=== PATIENT | male | born 1945 | race Caucasian/White ===

== ENCOUNTER → 2018-05-12 10:28 | Outpatient (CLI) | payer MEDICARE, OTHER, SELFPAY ==
[2018-05-12 12:45] LABS: Anion Gap 7 (5-15); BUN 14 mg/dL (7-18); Calcium,Total 8.5 mg/dL (8.5-10.1); Chloride 105 mmol/L (98-107); Cholesterol 113 mg/dL (200); Creatinine, Serum 1.17 mg/dL (0.70-1.30); EST Glomerular Filtration Rate 65 mL/min (>60); Est Glom Filt Rate - Afr Amer 78 mL/min (>60); Glucose 122 mg/dL (74-106); High Density Lipoprotein 41 mg/dL; Potassium 3.6 mmol/L (3.5-5.1); Sodium Level 141 mmol/L (136-145); Triglycerides 89 mg/dL; Very Low Density Lipoprotein 18 mg/dL (5-40)
== END ==
PROVIDERS: Family Provider Family Medicine; PCP Family Medicine; Visit Provider Family Medicine
DX: I10 Essential (primary) hypertension (principal)
CPT/HCPCS: 36415; 80048; 80061

== ENCOUNTER → 2018-11-08 10:24 | Outpatient (CLI) | payer MEDICARE, OTHER, SELFPAY ==
[2018-11-08 09:33] VITALS: BMI 26.7
[2018-11-08 12:57] LABS: Cholesterol 134 mg/dL (200); High Density Lipoprotein 45 mg/dL; Triglycerides 125 mg/dL; Very Low Density Lipoprotein 25 mg/dL (5-40)
== END ==
PROVIDERS: Family Provider Family Medicine; PCP Family Medicine; Referring Provider Family Medicine; Visit Provider Family Medicine
DX: I10 Essential (primary) hypertension (principal)
CPT/HCPCS: 36415; 80061

== ENCOUNTER → 2019-04-26 08:54 | Outpatient (CLI) | payer MEDICARE, OTHER, SELFPAY ==
[2019-04-26 08:34] VITALS: BMI 25.7
[2019-04-26 13:03] LABS: ALB/GLOB Ratio 0.9 RATIO (0.9-2.4); AST(SGOT) 22 U/L (15-37); Alanine Aminotransfer ALT/SGPT 35 U/L (16-61); Albumin, Serum 3.7 g/dL (3.2-5.0); Alkaline Phosphatase 105 U/L (45-117); Anion Gap 9 (5-15); BUN 16 mg/dL (7-18); BUN/Creat Ratio 12.7 RATIO (10-20); Calcium,Total 8.9 mg/dL (8.5-10.1); Chloride 101 mmol/L (98-107); Cholesterol 143 mg/dL (200); Creatinine, Serum 1.26 mg/dL (0.70-1.30); EST Glomerular Filtration Rate 59 mL/min (>60); Est Glom Filt Rate - Afr Amer 72 mL/min (>60); Globulin 4.2 g/dL (2.2-4.2); Glucose 147 mg/dL (74-106); High Density Lipoprotein 42 mg/dL; Potassium 3.4 mmol/L (3.5-5.1); Protein, Total 7.9 g/dL (6.4-8.2); Sodium Level 140 mmol/L (136-145); Triglycerides 127 mg/dL; Very Low Density Lipoprotein 25 mg/dL (5-40)
== END ==
PROVIDERS: Family Provider Family Medicine; PCP Family Medicine; Visit Provider Family Medicine
DX: E78.00 Pure hypercholesterolemia, unspecified (principal); I10 Essential (primary) hypertension
CPT/HCPCS: 36415; 80053; 80061

== ENCOUNTER → 2019-10-31 08:49 | Outpatient (CLI) | payer MEDICARE, OTHER, SELFPAY ==
[2019-10-31 08:41] VITALS: BMI 25.7
[2019-10-31 13:02] LABS: Cholesterol 165 mg/dL (200); High Density Lipoprotein 47 mg/dL; Triglycerides 127 mg/dL; Very Low Density Lipoprotein 25 mg/dL (5-40)
== END ==
PROVIDERS: PCP Family Medicine; Referring Provider Family Medicine; Visit Provider Family Medicine
DX: E78.00 Pure hypercholesterolemia, unspecified (principal)
CPT/HCPCS: 36415; 80061

== ENCOUNTER → 2020-04-30 09:01 | Outpatient (CLI) | payer MEDICARE, OTHER, SELFPAY ==
[2020-04-30 08:38] VITALS: BMI 25.7
[2020-04-30 11:16] LABS: ALB/GLOB Ratio 0.9 RATIO (0.9-2.4); AST(SGOT) 20 U/L (15-37); Alanine Aminotransfer ALT/SGPT 24 U/L (16-61); Albumin, Serum 3.6 g/dL (3.2-5.0); Alkaline Phosphatase 92 U/L (45-117); Anion Gap 4 (5-15); BUN 17 mg/dL (7-18); Calcium,Total 8.6 mg/dL (8.5-10.1); Chloride 104 mmol/L (98-107); Cholesterol 123 mg/dL (200); Creatinine, Serum 1.31 mg/dL (0.70-1.30); EST Glomerular Filtration Rate 57 mL/min (>60); Est Glom Filt Rate - Afr Amer 68 mL/min (>60); Globulin 4.2 g/dL (2.2-4.2); Glucose 165 mg/dL (74-106); High Density Lipoprotein 44 mg/dL; Potassium 3.5 mmol/L (3.5-5.1); Protein, Total 7.8 g/dL (6.4-8.2); Sodium Level 139 mmol/L (136-145); Triglycerides 103 mg/dL; Very Low Density Lipoprotein 21 mg/dL (5-40)
== END ==
PROVIDERS: PCP Family Medicine; Referring Provider Family Medicine; Visit Provider Family Medicine
DX: I10 Essential (primary) hypertension (principal); E78.00 Pure hypercholesterolemia, unspecified
CPT/HCPCS: 36415; 80053; 80061

== ENCOUNTER → 2020-05-01 08:11 | Outpatient (CLI) | payer MEDICARE, OTHER, SELFPAY ==
[2020-04-30 08:38] VITALS: BMI 25.7
[2020-05-01 13:00] LABS: Hemoglobin A1c 7.3 % (3.8-5.6)
== END ==
PROVIDERS: PCP Family Medicine; Referring Provider Family Medicine; Visit Provider Family Medicine
DX: R73.09 Other abnormal glucose (principal)
CPT/HCPCS: 36415; 83036

== ENCOUNTER 2020-05-08 08:51 | Outpatient (RCR) | payer MEDICARE, OTHER, SELFPAY ==
[2020-04-30 08:38] VITALS: BMI 25.7
== END 2020-05-26 23:59 ==
LOC: DC 08:51
PROVIDERS: PCP Family Medicine; Visit Provider Family Medicine
DX: Z71.3 Dietary counseling and surveillance (principal); E11.9 Type 2 diabetes mellitus without complications
CPT/HCPCS: G0108

== ENCOUNTER 2020-07-23 10:58 | Outpatient (RCR) | payer MEDICARE, OTHER, SELFPAY ==
[2020-04-30 08:38] VITALS: BMI 25.7
[2020-07-02 11:53] VITALS: BMI 25.7
== END 2020-07-23 23:59 | disposition home or self-care (01) ==
LOC: DC 10:58
PROVIDERS: PCP Family Medicine; Visit Provider Family Medicine
DX: Z71.3 Dietary counseling and surveillance (principal); E11.9 Type 2 diabetes mellitus without complications
CPT/HCPCS: 97802

== ENCOUNTER → 2020-11-11 08:57 | Outpatient (CLI) | payer MEDICARE, OTHER, SELFPAY ==
[2020-11-11 08:26] VITALS: BMI 23.1
[2020-11-11 12:53] LABS: ALB/GLOB Ratio 0.9 RATIO (0.9-2.4); AST(SGOT) 21 U/L (15-37); Alanine Aminotransfer ALT/SGPT 32 U/L (16-61); Alkaline Phosphatase 94 U/L (45-117); Anion Gap 3 (5-15); BUN 22 mg/dL (7-18); BUN/Creat Ratio 17.5 RATIO (10-20); Calcium,Total 9.3 mg/dL (8.5-10.1); Chloride 103 mmol/L (98-107); Cholesterol 156 mg/dL (200); Creatinine, Serum 1.26 mg/dL (0.70-1.30); EST Glomerular Filtration Rate 59 mL/min (>60); Est Glom Filt Rate - Afr Amer 71 mL/min (>60); Globulin 4.3 g/dL (2.2-4.2); Glucose 137 mg/dL (74-106); High Density Lipoprotein 52 mg/dL; Protein, Total 8.3 g/dL (6.4-8.2); Sodium Level 138 mmol/L (136-145); Triglycerides 130 mg/dL; Very Low Density Lipoprotein 26 mg/dL (5-40)
== END ==
PROVIDERS: PCP Family Medicine; Referring Provider Family Medicine; Visit Provider Family Medicine
DX: E78.00 Pure hypercholesterolemia, unspecified (principal); I10 Essential (primary) hypertension
CPT/HCPCS: 36415; 80053; 80061

== ENCOUNTER → 2021-01-19 10:21 | Outpatient (CLI) | payer MEDICARE, OTHER, SELFPAY ==
[2021-01-19 09:00] VITALS: BMI 23.4
--- NOTE | 2021-01-19 10:24 | RAD_ITS ---
INDICATION: right foot pain EXAMINATION/TECHNIQUE: X-RAY - RIGHT XR Foot Min 3 Views COMPARISON: None. FINDINGS: No acute fracture or malalignment. No blastic or lytic lesions. No degenerative changes are seen. The soft tissues are unremarkable. RAD/Foot min 3 Views IMPRESSION: No acute radiographic abnormalities. Electronically Signed: Lalo Olivera MD at 17:48 EDT Tel , Service support ,
--- NOTE | 2021-01-19 10:29 | RAD_ITS ---
INDICATION: right foot pain EXAMINATION/TECHNIQUE: X-RAY - RIGHT XR Ankle Min 3 Views COMPARISON: None. FINDINGS: No acute fracture or malalignment. No blastic or lytic lesions. No degenerative changes are seen. Soft tissue swelling of the ankle. RAD/Ankle min 3 Views IMPRESSION: Soft tissue swelling of the ankle without fracture or malalignment. Electronically Signed: Lalo Olivera MD at 17:47 EDT Tel , Service support ,
== END ==
PROVIDERS: PCP Family Medicine; Referring Provider Physician Assistant; Visit Provider Physician Assistant
DX: M79.671 Pain in right foot (principal)
CPT/HCPCS: 73610; 73630

== ENCOUNTER 2021-09-28 10:56 | Day surgery (SDC) | payer MEDICARE, OTHER, SELFPAY ==
--- NOTE | 2021-09-14 11:08 | RAD_ITS ---
STUDY: X-RAY CHEST REASON FOR EXAM: Male, 75 years old. For Pacemaker generator change with Dr. Lux on 1 TECHNIQUE: PA and lateral views of the chest. COMPARISON: Comparison is made with prior study dated 06/26/2014. FINDINGS: There is hyperinflation of the lungs consistent with chronic obstructive lung disease (COPD). There is no demonstrated pleural abnormality. Normal size heart. A left-sided dual chamber pacemakers. Normal mediastinum and ashley. Normal visualized pulmonary arteries. There is atherosclerotic calcification of the aortic arch with tortuosity. There are degenerative changes of the visualized thoracic spine. Normal visualized ribs, clavicles, and shoulders. There is no demonstrated abnormality of the visualized soft tissue structures of the upper abdomen. RAD/Chest PA and Lateral IMPRESSION: Hyperinflation. Electronically Signed: Shamar Butt MD at 13:24 EST , Service support ,
[2021-09-14 11:21] LABS: Bacteria 0 SEEN /hpf (None Seen); Mucous, Urine 0 SEEN /hpf (<or=2+)
[2021-09-14 11:39] LABS: Hematocrit 39.5 % (40-54); Hemoglobin 13.8 g/dL (13.0-16.5); Mean Corp Hgb Conc 34.9 g/dL (32-36); Mean Corpuscular Hgb 33.7 pg (27.0-32.0); Mean Corpuscular Volume 96.6 fL (80-94); Mean Platelet Vol. 10.2 fl (6.2-12.0); Platelet Count 318 K/mm3 (150-450); RBC Distribution Width CV 13.4 % (11.6-14.6); RBC Distribution Width SD 47.8 fl (35.1-43.9); Red Blood Count 4.09 M/mm3 (4.6-6.2); White Blood Count 12.4 K/mm3 (4.4-11.0)
[2021-09-14 11:55] LABS: Color, Urine Yellow (Yellow); Glucose, Dipstick Normal (Normal); Ketone-Dipstick Negative (Negative); Leukocyte Esterase-Dipstick Negative /ul (Negative); Nitrite-Dipstick Negative (Negative); Occult Blood-Urine 50 /ul (Negative); Protein-Dipstick Negative (Negative); Urine Bilirubin Dipstick Negative (Negative); Urine Clarity Clear (Clear); Urine Urobilinogen Normal (Normal)
[2021-09-14 12:01] LABS: Red Blood Cells-Urine 0-5 SEEN /hpf (0-5); Squamous Epithelial Cells - UA 0-5 SEEN /hpf (0-5); White Blood Cells 0-5 SEEN /hpf (0-5)
[2021-09-14 12:12] LABS: International Normalized Ratio 1.1; Prothrombin Time (Protime)PT. 13.6 SECONDS (11.7-14.9)
[2021-09-14 12:21] LABS: Anion Gap 7 (5-15); BUN 17 mg/dL (7-18); BUN/Creat Ratio 13.4 RATIO (10-20); Calcium,Total 9.2 mg/dL (8.5-10.1); Chloride 101 mmol/L (98-107); Creatinine, Serum 1.27 mg/dL (0.70-1.30); EST Glomerular Filtration Rate 58 mL/min (>60); Est Glom Filt Rate - Afr Amer 71 mL/min (>60); Glucose 177 mg/dL (74-106); Potassium 3.3 mmol/L (3.5-5.1); Sodium Level 138 mmol/L (136-145)
[2021-09-24 07:42] VITALS: BMI 23.0
[2021-09-24 09:11] LABS: Anion Gap 6 (5-15); BUN 14 mg/dL (7-18); BUN/Creat Ratio 11.4 RATIO (10-20); Chloride 104 mmol/L (98-107); Creatinine, Serum 1.23 mg/dL (0.70-1.30); EST Glomerular Filtration Rate 61 mL/min (>60); Est Glom Filt Rate - Afr Amer 73 mL/min (>60); Estimated Creatinine Clearance 54.86 ml/min; Glucose 229 mg/dL (74-106); Potassium 3.5 mmol/L (3.5-5.1); Sodium Level 140 mmol/L (136-145)
[2021-09-28 11:33] LABS: Anion Gap 7 (5-15); BUN 19 mg/dL (7-18); BUN/Creat Ratio 13.5 RATIO (10-20); Calcium,Total 9.2 mg/dL (8.5-10.1); Chloride 102 mmol/L (98-107); Creatinine, Serum 1.41 mg/dL (0.70-1.30); EST Glomerular Filtration Rate 52 mL/min (>60); Est Glom Filt Rate - Afr Amer 63 mL/min (>60); Estimated Creatinine Clearance 47.85 ml/min; Glucose 175 mg/dL (74-106); Potassium 3.4 mmol/L (3.5-5.1); Sodium Level 138 mmol/L (136-145)
--- NOTE | 2021-09-28 13:22 | CL.IE_ITS ---
Patient: FLAQUITO MCMULLEN Study Date: 09/28/2021 Performing: Yohannes Lux MD : 1945 Age: 75 Gender: male PROCEDURES PERFORMED [id number])BATTERY REMOVAL+REPLACEMENT PACER-DUAL LEAD INDICATIONS Mobitz (type II) AV block PROCEDURE DETAILS The patient was brought to the Catheterization Lab in the postabsorptive nonsedated state. Infor med consent was obtained prior to the procedure. Local anesthetic was given subcutaneously to the le ft upper chest area with Lidocaine 2%. Incision was made to the left upper chest. PPM atrial lead steph ting performed. PPM ventricular lead testing performed. PPM ventricular lead testing performed. PPM g enerator was attached to the lead(s) and inserted into the pocket. Device pocket was irrigated with a ntibiotic. Subcutaneous closure was completed with 3-0 Vicryl. Skin closure was completed with 4-0 Vi cryl. Instrument, sponge, and needle counts were noted to be normal. The patient tolerated the proced ure well. 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: [email or web address], Model # [employer] MRI DR Model L111 , Serial # [id number] DEVICE PARAMETERS ATRIAL LEAD PARAMETERS: P wave- 3.5 (mV) Current- 1.5 (mA) threshold- 551 (V) VENTRICULAR LEAD PARAMETERS: Current- 3.1 (mA) threshold- 1.7 (V) impedence- 555 (OHMS) DEVICE PARAMETERS: Mode- DDD Lower rate- 60 Upper rate- 140 CONCLUSIONS / RECOMMENDATIONS Device Conclusions: Successful implantation of a dual chamber pacemaker battery change and replacemen t Device Recommendations: Follow up with Primary Care Physician PROCEDURE MEDICATIONS Fentanyl 50 mcg IV Versed 1 mg IV Versed 1 mg IV Oxygen: 2 L/min via nasal cannula Antibiotic given in appropriate timeframe. Ancef 2 Gm IV @ 09/28/2021 12:16:28 Signed By Yohannes Lux MD On 09/28/2021 13:21:45 Yohannes Lux MD
== END 2021-09-28 23:59 | disposition home or self-care (01) ==
LOC: CLSP 10:57
PROVIDERS: Internal Medicine Cardiovascular Disease; Nurse Practitioner Gerontology; PCP Family Medicine; Referring Provider Internal Medicine Cardiovascular Disease; Visit Provider Internal Medicine Cardiovascular Disease
DX: Z45.010 Encounter for checking and testing of cardiac pacemaker pulse generator [battery] (principal); Z95.0 Presence of cardiac pacemaker; I10 Essential (primary) hypertension; E78.00 Pure hypercholesterolemia, unspecified; Q21.1 Atrial septal defect; Z87.891 Personal history of nicotine dependence; Z79.899 Other long term (current) drug therapy
CPT/HCPCS: 33228; 36415; 71046; 80048; 81001; 85027; 85610; 99152; 99153; J7040; J7050

== ENCOUNTER 2021-11-04 08:53 | Outpatient (CLI) | payer MEDICARE, OTHER, SELFPAY ==
[2021-11-04 13:00] LABS: Cholesterol 135 mg/dL (200); High Density Lipoprotein 46 mg/dL; Triglycerides 105 mg/dL; Very Low Density Lipoprotein 21 mg/dL (5-40)
== END 2021-11-04 23:59 | disposition home or self-care (01) ==
LOC: BIMLAB 08:54
PROVIDERS: PCP Family Medicine; Referring Provider Family Medicine; Visit Provider Family Medicine
DX: Z79.899 Other long term (current) drug therapy (principal)
CPT/HCPCS: 36415; 80061

== ENCOUNTER → 2022-01-27 | Outpatient (CLI) | payer MEDICARE, OTHER, SELFPAY ==
[2022-01-27 12:57] LABS: Anion Gap 10 (5-15); BUN 18 mg/dL (7-18); BUN/Creat Ratio 14.2 RATIO (10-20); Calcium,Total 8.7 mg/dL (8.5-10.1); Chloride 104 mmol/L (98-107); Creatinine, Serum 1.27 mg/dL (0.70-1.30); EST Glomerular Filtration Rate 58 mL/min (>60); Est Glom Filt Rate - Afr Amer 71 mL/min (>60); Glucose 127 mg/dL (74-106); Sodium Level 136 mmol/L (136-145)
== END | disposition home or self-care (01) ==
LOC: BIMLAB 10:40
PROVIDERS: PCP Family Medicine; Referring Provider Family Medicine; Visit Provider Family Medicine
DX: E87.6 Hypokalemia (principal)
CPT/HCPCS: 36415; 80048

== ENCOUNTER → 2023-03-15 | Outpatient (CLI) | payer MEDICARE, OTHER, SELFPAY ==
[2023-03-15 14:10] LABS: ALB/GLOB Ratio 0.8 RATIO (0.9-2.4); AST(SGOT) 23 U/L (15-37); Alanine Aminotransfer ALT/SGPT 22 U/L (16-61); Albumin, Serum 3.6 g/dL (3.2-5.0); Alkaline Phosphatase 101 U/L (45-117); Anion Gap 6 (5-15); BUN 20 mg/dL (7-18); BUN/Creat Ratio 17.1 RATIO (10-20); Calcium,Total 9.2 mg/dL (8.5-10.1); Chloride 104 mmol/L (98-107); Cholesterol 125 mg/dL (200); Creatinine, Serum 1.17 mg/dL (0.70-1.30); EST Glomerular Filtration Rate 64 mL/min (>60); Est Glom Filt Rate - Afr Amer 77 mL/min (>60); Globulin 4.8 g/dL (2.2-4.2); Glucose 135 mg/dL (74-106); High Density Lipoprotein 49 mg/dL; Potassium 4.1 mmol/L (3.5-5.1); Protein, Total 8.4 g/dL (6.4-8.2); Sodium Level 140 mmol/L (136-145); Triglycerides 84 mg/dL; Very Low Density Lipoprotein 17 mg/dL (5-40)
[2023-03-17 11:08] LABS: PROEL- A/G Ratio 0.9 (0.7-1.7); PROEL- Albumin 3.6 g/dL (2.9-4.4); PROEL- Alpha-1 Globulin 0.3 g/dL (0.0-0.4); PROEL- Alpha-2 Globulin 0.9 g/dL (0.4-1.0); PROEL- Beta Globulin 1.2 g/dL (0.7-1.3); PROEL- Gamma Globulin 1.7 g/dL (0.4-1.8); PROEL- Globulin, Total 4.1 g/dL (2.2-3.9); PROEL- TOTAL PROTEIN 7.7 g/dL (6.0-8.5)
== END | disposition home or self-care (01) ==
LOC: BIMLAB 09:38
PROVIDERS: PCP Family Medicine; Referring Provider Family Medicine; Visit Provider Family Medicine
DX: I10 Essential (primary) hypertension (principal); R77.1 Abnormality of globulin
CPT/HCPCS: 36415; 80053; 80061; 84165

== ENCOUNTER → 2023-06-06 | Outpatient (CLI) | payer MEDICARE, OTHER, SELFPAY ==
--- NOTE | 2023-06-06 10:46 | ECHOD_ITS ---
Reason For Study: AV BLOCK Procedure This was a 2D Doppler, Color Flow transthoracic echocardiogram. Exam performed in department. Left Ventricle Normal LV size. Left ventricular systolic function is normal. The estimated ejection fraction is 55 %. Stage 1 diastolic dysfunction. No regional wall motion abnormalities noted. Right Ventricle Normal RV size. ICD or pacer leads identified within the right ventricle. The right ventricle is normal in size, function, and thickness. Atria Normal left atrium. The right atrium is mildly enlarged. Mitral Valve Normal mitral valve. Trivial eccentric mitral valve insufficiency. Tricuspid Valve Normal tricuspid valve. Mild to moderate (1-2+) tricuspid valve insufficiency. Pulmonary artery systolic pressure is 34 mmHg. Aortic Valve Trisinus/trileaflet aortic valve. Pulmonic Valve Normal pulmonic valve. Great Vessels Normal aortic root. The pulmonary artery is normal size. Normal inferior vena cava. Pericardium/Pleural No pericardial effusion. MMode/2D Measurements & Calculations LVIDd: 4.6 cm IVSd: 0.86 cm Ao root diam: 3.2 cm LVIDs: 4.0 cm LVPWd: 0.67 cm RVDd: 3.9 cm FS: 13.5 % LAV(MOD-bp): 55.0 ml LVAd ap4: 26.1 cm2 SV(MOD-sp4): 36.1 ml LAV(MOD-bp) Indexed: 28.0 ml/m2 LVLd ap4: 8.2 cm LAV(MOD-sp2): 71.2 ml EDV(MOD-sp4): 71.5 ml LAV(MOD-sp4): 39.8 ml EDV(sp4-el): 70.7 ml LVAs ap4: 17.6 cm2 LVLs ap4: 7.7 cm ESV(MOD-sp4): 35.4 ml ESV(sp4-el): 34.2 ml EF(MOD-sp4): 50.5 % EF(sp4-el): 51.6 % SV(sp4-el): 36.4 ml LA A4 area: 16.1 cm2 LA dimension(2D): 3.9 cm RA A4 area: 22.3 cm2 TAPSE: 1.5 cm Time Measurements MV dec time: 0.31 sec Doppler Measurements & Calculations MV E max richard: 48.2 cm/sec Lat Peak E' Richard: 6.3 cm/sec Med Peak E' Richard: 4.9 cm/sec MV A max richard: 64.5 cm/sec E/E' lat: 7.6 E/E' med: 9.9 MV E/A: 0.75 MV V2 max: 79.1 cm/sec Ao V2 max: 99.4 cm/sec MV max P.5 mmHg MV dec slope: 160.3 cm/sec2 Ao max P.0 mmHg MV V2 mean: 45.3 cm/sec Ao V2 mean: 71.8 cm/sec MV mean P.93 mmHg Ao mean P.3 mmHg MV V2 VTI: 26.3 cm Ao V2 VTI: 26.1 cm AV (velocity ratio): 1.0 LV V1 max: 102.8 cm/sec PA V2 max: 135.7 cm/sec TR max richard: 281.4 cm/sec LV V1 max P.2 mmHg PA V2 mean: 74.2 cm/sec TR max P.7 mmHg LV V1 mean P.4 mmHg LV V1 mean: 71.5 cm/sec LV V1 VTI: 27.2 cm ECHO/Echo Complete Interpretation Summary Normal LV size. Left ventricular systolic function is normal. The estimated ejection fraction is 55 %. Stage 1 diastolic dysfunction. Pulmonary artery systolic pressure is 34 mmHg. The right atrium is mildly enlarged. Ordering Physician: Camilla Kidd Referring Physician: Camilla Kidd Performed By: Brittany Mayes RCS
== END | disposition home or self-care (01) ==
PROVIDERS: PCP Family Medicine; Referring Provider Physician Assistant Medical; Visit Provider Physician Assistant Medical
DX: I44.1 Atrioventricular block, second degree (principal)
CPT/HCPCS: 93306

== ENCOUNTER 2023-08-24 10:56 | Day surgery (SDC) | payer MEDICARE, OTHER, SELFPAY ==
[2023-08-24] VITALS (8 sets, daily range): BP systolic 121–142; BP diastolic 59–94; PULSE 77–86; RESP 14–18; TEMP 36.1–36.6; O2SAT 92–100; BMI 21.4
--- NOTE | 2023-08-24 11:19 | EDS_ITS ---
HPI <ISRA Jones - Last Filed: 08/24/23 13:14> History of Present Illness Chief Complaint: Foreign Body Narrative Narrative: Patient is a 77-year-old male with history of pacemaker, type 2 diabetes, CAD who presents to the emergency department with complaints of foreign body in his throat. Patient was having steak last night, approximately 530 to 6 PM. He states that he felt that something got stuck. He then coughed and had a small chunk come out however he states he is unable to swallow. Patient could not sleep last night because he to keep spitting out his saliva. He denies any chest pain, denies any shortness of breath. Patient states he does feel some pressure in his epigastric area. PFSH <ISRA Jones - Last Filed: 08/24/23 13:14> [facility] Medical History Atrial septal defect Atrioventricular block, first degree Cardiac murmur COVID-19 Encounter for long-term current use of high risk medication Essential hypertension Heart block AV second degree hyperlipidemia Hypertension Nonspecific abnormal unspecified cardiovascular function study Palpitations 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 Pure hypercholesterolemia Home Medications clonidine HCl 0.1 mg tablet See Rx Instructions .Route .COMPLEX #180 tabs 02/23/23 [Rx Last Taken Unknown] atorvastatin 10 mg tablet 10 mg PO QHS #90 tabs 03/10/23 [Rx Last Taken Unknown] metformin 500 mg tablet 500 mg PO ONCE #90 tabs 03/15/23 [Rx Last Taken Unknown] metoprolol succinate 25 mg tablet,extended release 24 hr 25 mg PO DAILY #90 tabs 03/15/23 [Rx Last Taken Unknown] amlodipine 5 mg tablet 5 mg PO DAILY #90 tabs 05/16/23 [Rx Last Taken Unknown] chlorthalidone 25 mg tablet 25 mg PO DAILY #90 tabs 05/16/23 [Rx Last Taken Unknown] potassium chloride 20 mEq tablet,extended release(part/cryst) 20 meq PO BID #180 tabs 05/16/23 [Rx Last Taken Unknown] Allergy/AdvReac Type Severity Reaction Status Date / Time hydralazine [Hydralazine] Allergy Unknown Verified 08/24/23 12:23 hydrochlorothiazide Allergy Unknown Verified 08/24/23 12:23 [From Diovan HCT] valsartan [From Diovan HCT] Allergy Unknown Verified 08/24/23 12:23 Family History Mother CVA (cerebral vascular accident) Father Cancer Brother CAD (coronary artery disease) Sister Breast cancer Surgical History History of cholecystectomy Social History Smoking Status: Former smoker how long ago did patient quit smokin years ago alcohol intake: never substance use type: does not use caffeine: Yes Type: coffee Number of servings: 2 what type of physical activity do you participate in: walking and bicycling frequency: daily ROS <ISRA Jones - Last Filed: 08/24/23 13:14> ROS ED ROS Narrative Constitutional: Negative for fever, chills, weight loss, weakness Eyes: Negative for vision loss, vision change, double vision ENT: Negative for any sore throat, ear pain, congestion. Positive for throat pain, difficulty swallowing Cardiovascular: Negative for any chest pain, tightness, palpitations Respiratory: Negative for any cough, sputum production, hemoptysis, dyspnea, dyspnea on exertion, orthopnea Gastrointestinal: Negative for any abdominal pain, nausea, vomiting, diarrhea, constipation, blood in stool, blood in vomit : Negative for any urinary frequency, dysuria, retention, blood in urine Muscle skeletal: Negative for any myalgias, arthralgias, neck pain, back pain Neurological: Negative for any headache, syncope, numbness or tingling, dizziness Skin: Negative for any rashes, lumps, itching, abrasions, lacerations Psychiatric: Negative for any depression, anxiety, stress, suicidal ideation, homicidal ideation Hematologic: Negative for any easy bruising, excessive bruising, easy bleeding Allergies: Negative for any eczema, hives, rash EXAM <ISRA Jones - Last Filed: 08/24/23 13:14> Physical Exam Narrative Exam Narrative: Vital signs reviewed. Patient is no obvious respiratory distress. Patient did spit out his saliva several times during my examination. HEET: Head normocephalic atraumatic, TMs clear bilaterally. Posterior pharynx is clear, moist mucous membranes. Nares clear bilaterally. No foreign body seen. Neck: Supple with no lymphadenopathy or tenderness. No signs of meningismus. Cardiac: Regular rate and rhythm no murmurs gallops or rubs, equal peripheral pulses bilaterally. Respiratory: Lungs clear to auscultation bilaterally. No chest tenderness. Abdomen: Soft, nontender, nondistended. No abdominal bruit or pulsatile masses. No hepatosplenomegaly Extremities: No peripheral edema, no signs of gross trauma or deformity. Active full range of motion of all extremities. Neuro: Cranial nerves II through XII intact, no focal neurological deficits. Skin: Clean dry and intact with no rash, purpura, petechiae, vesicles or pustules. Backs/flank: No CVA tenderness, no midline spinal tenderness, no deformity. Psych: Normal mood and affect. No SI, HI or acute psychosis. Const Vital Signs: 08/24/23 10:57 08/24/23 10:56 08/24/23 12:26 Temperature 97.5 F L Temperature Source Temporal Pulse Rate 82 Respiratory Rate 18 Respiratory Effort Normal Non-Labored Respiratory Pattern Normal Normal Blood Pressure 136/82 H Blood Pressure Mean 100 Blood Pressure Source Blood Pressure Position Blood Pressure Location Pulse Ox 92 Oxygen Delivery Method Room Air 08/24/23 12:26 Temperature 97.5 F L Temperature Source Temporal Pulse Rate 86 Respiratory Rate 16 Respiratory Effort Respiratory Pattern Blood Pressure 141/59 H Blood Pressure Mean 86 Blood Pressure Source Monitor Blood Pressure Position Semi-Fowlers Blood Pressure Location Left Arm Pulse Ox 100 Oxygen Delivery Method Room Air Positive well nourished and well developed General Appearance ED: well developed <Dr. Enzo Kirk MD - Last Filed: 08/24/23 11:36> Physical Exam Const Vital Signs: 08/24/23 10:57 08/24/23 10:56 08/24/23 12:26 Temperature 97.5 F L Temperature Source Temporal Pulse Rate 82 Respiratory Rate 18 Respiratory Effort Normal Non-Labored Respiratory Pattern Normal Normal Blood Pressure 136/82 H Blood Pressure Mean 100 Blood Pressure Source Blood Pressure Position Blood Pressure Location Pulse Ox 92 Oxygen Delivery Method Room Air 08/24/23 12:26 Temperature 97.5 F L Temperature Source Temporal Pulse Rate 86 Respiratory Rate 16 Respiratory Effort Respiratory Pattern Blood Pressure 141/59 H Blood Pressure Mean 86 Blood Pressure Source Monitor Blood Pressure Position Semi-Fowlers Blood Pressure Location Left Arm Pulse Ox 100 Oxygen Delivery Method Room Air [facility] <ISRA Jones - Last Filed: 08/24/23 13:14> [facility] Lab Data Labs: Laboratory Results - last 24 hr 08/24/23 12:39 POC Glucose 168 H Treatment and Re-Evaluation :: Patient appears generally well, patient appears nontoxic, vital signs are stable. Presents to the emergency department for complaints of throat pain, feeling of foreign body, cannot swallow. Differential diagnose includes foreign body, pharyngitis, GERD. Patient will be given IV glucagon, he will then be given Sprite to see if this helps him swallow. Patient did try IV glucagon, he did try to drink Sprite however was unable to get it down. Dr. Matias was consulted, he will begin to perform the procedure remove the foreign body. Patient remained stable. Patient will go to surgery for EGD. Dr. Matias notified. <Dr. Enzo Kirk MD - Last Filed: 08/24/23 11:36> [facility] Narrative Medical decision making narrative: I have personally performed a face to face assessment of the patient and have reviewed the KIESHA Note. I performed a substantive portion of the visit including all aspects of the following. My alfonso findings include: History is 77-year-old male with esophageal foreign body after eating steak last night for dinner around 5:30 PM. He is unable to swallow food. Mild discomfort. No prior history. Exam is [well-appearing 77-year-old male. Sitting upright in bed. Vital signs are stable afebrile. Pulse ox 92% on room air no hypoxia. HEENT exam unremarkable. Posterior pharynx normal. He is able to handle secretions. I gave him a small glass of water he was able to swallow it but it took a while to for him to get it down. Lungs are clear. Heart regular rhythm. Abdomen soft nontender. Moving all 4 extremities.] Medical Decision Making [7-year-old male suspected esophageal foreign body, steak bolus. Treated with glucagon. GI on page for endoscopy.] Other additions or changes: [None] History & Record Review Discussion w/independent historian: Patient Lab Data Labs: Laboratory Results - last 24 hr 08/24/23 12:39 POC Glucose 168 H Discharge Plan Dx/Rx/DC Orders Clinical Impression: Distal esophageal obstruction due to foreign body Disposition Disposition: Acute Care Hospital [facility] Discharge Date/Time: 08/24/23 12:23
[2023-08-24] MEDS: Glucagon 1 MG/ML Syringe IV (11:31)
--- NOTE | 2023-08-24 12:49 | HP.PCM_ITS ---
HPI - General General Date of Admission: 08/24/23 Date of Service: 08/24/23 Chief Complaint: Food impaction HPI Narrative FLAQUITO MCMULLEN, is a 77 M who presents with an inability to swallow. He has a past medical history of pacemaker secondary to AV block, type 2 diabetes, CAD, CKD who presents to the emergency department with complaints of foreign body in his throat. Patient was having steak last night, approximately 530 to 6 PM. He sta steph that he felt that something got stuck. He then coughed and had a small chunk come out however he states he is unable to swallow. Patient could not sleep last night because he to keep spitting out his saliva. He denies any chest pain, denies any shortness of breath. Patient states he does feel some pressure in his epigastric area. [facility] Medical History Atrial septal defect Atrioventricular block, first degree Cardiac murmur COVID-19 Encounter for long-term current use of high risk medication Essential hypertension Heart block AV second degree hyperlipidemia Hypertension Nonspecific abnormal unspecified cardiovascular function study Palpitations 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 Pure hypercholesterolemia Home Medications clonidine HCl 0.1 mg tablet See Rx Instructions .Route .COMPLEX #180 tabs 02/23/23 [Rx Last Taken Unknown] atorvastatin 10 mg tablet 10 mg PO QHS #90 tabs 03/10/23 [Rx Last Taken Unknown] metformin 500 mg tablet 500 mg PO ONCE #90 tabs 03/15/23 [Rx Last Taken Unknown] metoprolol succinate 25 mg tablet,extended release 24 hr 25 mg PO DAILY #90 tabs 03/15/23 [Rx Last Taken Unknown] amlodipine 5 mg tablet 5 mg PO DAILY #90 tabs 05/16/23 [Rx Last Taken Unknown] chlorthalidone 25 mg tablet 25 mg PO DAILY #90 tabs 05/16/23 [Rx Last Taken Unknown] potassium chloride 20 mEq tablet,extended release(part/cryst) 20 meq PO BID #180 tabs 05/16/23 [Rx Last Taken Unknown] Allergy/AdvReac Type Severity Reaction Status Date / Time hydralazine [Hydralazine] Allergy Unknown Verified 08/24/23 12:23 hydrochlorothiazide Allergy Unknown Verified 08/24/23 12:23 [From Diovan HCT] valsartan [From Diovan HCT] Allergy Unknown Verified 08/24/23 12:23 Family History Mother CVA (cerebral vascular accident) Father Cancer Brother CAD (coronary artery disease) Sister Breast cancer Surgical History History of cholecystectomy Social History Smoking Status: Former smoker how long ago did patient quit smokin years ago alcohol intake: never substance use type: does not use caffeine: Yes Type: coffee Number of servings: 2 what type of physical activity do you participate in: walking and bicycling frequency: daily ROS Review of Systems ROS Unobtainable: other Constitutional Constitutional: Denies fatigue, fever(s), poor appetite, weight gain or weight loss ENT HEENT: Denies mouth lesions Cardiovascular Cardiovascular: Denies abdominal bloating, abdominal edema or abdominal pain Respiratory/Chest Respiratory/Chest: Denies change in mental status, change in phlegm color, chest congestion or chest tightness Gastrointestinal Gastrointestinal: Denies belching, bloating, change in bowel habits, change in stool character, chewing difficulty, coffee ground emesis, constipation, cramping, diarrhea, dyspepsia, dysphagia, early satiety, excessive flatus, fecal incontinence, heartburn, hematemesis, hematochezia, hemorrhoids, loose stools, melena, nausea, odynophagia, rectal bleeding, tenesmus, vomiting or weight changes Genitourinary Genitourinary: Denies abdominal discomfort, burning urination or itching Musculoskeletal Musculoskeletal: Reports as per HPI; Denies muscle weakness or myalgias Integumentary Integumentary: Denies jaundice Neurologic Neurologic: Denies lack of coordination or weakness Psychiatric Psychiatric: Denies confusion, depression, memory loss, mood swings, paranoia or suicidal ideation Endocrine Endocrinology: Denies systems reviewed and no addt'l complaints, except as documented Hematologic/Lymphatic Hematologic/Lymphatic: Denies anemia, easy bleeding, easy bruising or lymphadenopathy Allergic/Immunologic Allergic/Immunologic: Denies systems reviewed and no addt'l complaints, except as documented Vital Signs Vital Signs Vital Signs: 08/24/23 10:57 08/24/23 10:56 08/24/23 12:26 Temperature 97.5 F L Temperature Source Temporal Pulse Rate 82 Respiratory Rate 18 Respiratory Effort Normal Non-Labored Respiratory Pattern Normal Normal Blood Pressure 136/82 H Blood Pressure Mean 100 Blood Pressure Source Blood Pressure Position Blood Pressure Location Pulse Ox 92 Oxygen Delivery Method Room Air 08/24/23 12:26 Temperature 97.5 F L Temperature Source Temporal Pulse Rate 86 Respiratory Rate 16 Respiratory Effort Respiratory Pattern Blood Pressure 141/59 H Blood Pressure Mean 86 Blood Pressure Source Monitor Blood Pressure Position Semi-Fowlers Blood Pressure Location Left Arm Pulse Ox 100 Oxygen Delivery Method Room Air Weight Weight: 157 lb 13.616 oz Body Mass Index (BMI) 21.4 Physical Exam Const alert General Appearance: cooperative Orientation / Consciousness: oriented to person HEENT hearing grossly normal bilaterally Head and Scalp: normal to inspection Face and Sinus: face symmetric Nose: external nose normal Mouth: oral and palatal mucosa normal Eyes conjunctivae normal General Eye: normal appearance of both eyes Neck full ROM General: normal visual inspection Lymph Lymphatic: no lymphadenopathy noted Chest inspection of chest normal and palpation of chest normal Chest: symmetrical chest wall rise Resp normal respiratory effort Effort and Inspection: able to speak in complete sentences Cardio regular rate GI non-distended Percussion: normal to percussion Rectal Exam: deferred Neuro Speech: speech normal Gait (Neuro): normal gait
[2023-08-24 13:04] LABS: Bedside Glucose 168 mg/dL (74-106)
--- NOTE | 2023-08-24 13:20 | EGD_PTH ---
PATIENT: FLAQUITO MCMULLEN [place] [facility] [place] U#:[id number] AGE/SX: 77/M ROOM: RE08/24/[address]: Dr. Gilbert Matias DO : 1945 BED: DIS: 08/24/2023 SPEC #: [id number] RECD: 08/24/23 18:34 STATUS: BEENA REMiroslava #: [id number] BEA: 08/24/23 13:[address]: Gilbert Matias DEPT: SURGICAL PATHOLOGY RECD BY: Mayte Shields ENTERED: 08/25/23 10:41 SP TYPE: EGD BIOPSY OT DR: Dr. Kumar Stephenson DO Tissues: Esophagus, NOS Procedures: Special Stain Group II Special Stain Group I Surgery Specimen Level IV GMS Stain (control) Alcian Blue/PAS (control) HEADER OPERATION: EDG, Foreign body removal, Biopsy and argon plasma coagulation PRE-OP DIAGNOSIS: Distal esophageal obstruction due to foreign body TISSUE SUBMITTED: Distal esophagus biopsy MICROSCOPIC DIAGNOSIS Distal esophagus, biopsy: Gastroesophageal junctional mucosa with acute and chronic inflammation. No evidence of goblet cell metaplasia. See comment. AM:li 08/26/2023 COMMENT Alcian blue/PAS stain with matched control supports the above diagnosis. GMS stain with matched control was used in the evaluation of this case. MICROSCOPIC DESCRIPTION Slides are reviewed. GROSS DESCRIPTION Received in fixative is one container labeled with the patient's name and designated distal esophagus. The specimen consists of multiple irregular fragments of light cortes soft tissue that in aggregate measure 0.7 x 0.3 x 0.1 cm. The specimen is totally submitted in one cassette. / AM:li 08/25/2023 TC:2 CPT: 16310, 37914, 33470
--- NOTE | 2023-08-24 13:56 | OP.EGD_ITS ---
Patient Name: Derrick Jackson Procedure Date: 08/24/2023 12:50 PM Date of : 1945 Age: 77 Procedure: Upper GI endoscopy Indications: Dysphagia Providers: Gilbert Matias DO Medicines: Monitored Anesthesia Care Patient Profile: This is a 77 year old male. Refer to note in patient chart for documentation of history and physical. Patient has symptoms of dysphagia with solids. Complications: No immediate complications. Procedure: Pre-Anesthesia Assessment: - Prior to the procedure, a History and Physical was performed, and patient medications and allergies were reviewed. The patient is competent. The risks and benefits of the procedure and the sedation options and risks were discussed with the patient. All questions were answered and informed consent was obtained. Patient identification and proposed procedure were verified by the physician in the pre-procedure area. Mental Status Examination: alert and oriented. Airway Examination: normal oropharyngeal airway and neck mobility. Respiratory Examination: clear to auscultation. CV Examination: normal. Prophylactic Antibiotics: The patient does not require prophylactic antibiotics. Prior Anticoagulants: The patient has taken no anticoagulant or antiplatelet agents except for NSAID medication. ASA Grade Assessment: II - A patient with mild systemic disease. After reviewing the risks and benefits, the patient was deemed in satisfactory condition to undergo the procedure. The anesthesia plan was to use monitored anesthesia care (MAC). Immediately prior to administration of medications, the patient was re-assessed for adequacy to receive sedatives. The heart rate, respiratory rate, oxygen saturations, blood pressure, adequacy of pulmonary ventilation, and response to care were monitored throughout the procedure. The physical status of the patient was re-assessed after the procedure. After obtaining informed consent, the endoscope was passed under direct vision. Throughout the procedure, the patient's blood pressure, pulse, and oxygen saturations were monitored continuously. The Endoscope was introduced through the mouth, and advanced to the second part of duodenum. The upper GI endoscopy was accomplished without difficulty. The patient tolerated the procedure well. Scope In: 1:10:13 PM Scope Out: 1:44:40 PM Total Procedure Duration Time 0 hours 34 minutes 27 seconds Findings: Food was found in the upper third of the esophagus, in the middle third of the esophagus and in the lower third of the esophagus. Removal was accomplished with a Palmer net. Verification of patient identification for the specimen was done. Estimated blood loss was minimal. A 9 mm bleeding Bharti-Steel tear with stigmata of recent bleeding was found. Area was successfully injected with 5 mL of a 0.1 mg/mL solution of epinephrine for drug delivery. Coagulation for hemostasis using argon plasma at 0.3 liters/minute and 20 mcclure was successful. To repair the defect, the tissue edges were approximated and one hemostatic clip was successfully placed. Closure of the defect was successful. 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 There was no bleeding at the end of the procedure. A medium-sized hiatal hernia was present. The cardia and gastric fundus were normal on retroflexion. The duodenal bulb was normal. Impression: - Food in the upper third of the esophagus, in the middle third of the esophagus and in the lower third of the esophagus. Removal was successful. - Bharti-Steel tear. Injected. Treated with argon plasma coagulation (APC). Clip was placed. 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 - Medium-sized hiatal hernia. - Normal duodenal bulb. Recommendation: - Discharge patient to home. - Clear liquid diet. - Use Protonix (pantoprazole) 40 mg PO BID. - Continue present medications. Procedure Code(s): --- Professional --- 55650, 59, Esophagogastroduodenoscopy, flexible, transoral; with control of bleeding, any method 98703, Esophagogastroduodenoscopy, flexible, transoral; with removal of foreign body(s) 35786, 59,51, Esophagogastroduodenoscopy, flexible, transoral; with directed submucosal injection(s), any substance CPT copyright 2021 [employer]. All rights reserved. The codes documented in this report are preliminary and upon remote medical coder review may be revised to meet current compliance requirements. Gilbert Matias DO 08/24/2023 1:56:13 PM This report has been signed electronically. Number of Addenda: 0 Note Initiated On: 08/24/2023 12:50 PM
--- NOTE | 2023-08-24 13:56 | OP.CCLET_ITS ---
08/24/2023 Kumar Stephenson Re : Upper GI endoscopy procedure for Derrick Jackson Dear Dr. Stephenson This procedure was performed on Thursday, August 24, 2023. My impressions and recommendations are as follows: Impressions : - Food in the upper third of the esophagus, in the middle third of the esophagus and in the lower third of the esophagus. Removal was successful. - Bharti-Steel tear. Injected. Treated with argon plasma coagulation (APC). Clip was placed. 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 - Medium-sized hiatal hernia. - Normal duodenal bulb. Recommendations : - Discharge patient to home. - Clear liquid diet. - Use Protonix (pantoprazole) 40 mg PO BID. - Continue present medications. My findings are described in the full procedure note, which is enclosed. If I can be of further assistance, please feel free to contact me at . Sincerely, Gilbert Friend, 08/24/2023 1:56:13 PM This report has been signed electronically.
[2023-08-24] MEDS: Pantoprazole Sodium 40 MG in 0.9% Normal Saline (100mL MB+) 100 ML 330 MG IV (14:47)
== END 2023-08-24 16:12 | disposition home or self-care (01) ==
LOC: ED 12:16 → SDC 12:17 → ACINP 12:18
PROVIDERS: Emergency Provider Emergency Medicine; PCP Family Medicine; Visit Provider Internal Medicine Gastroenterology
PROC: 0DJ08ZZ Inspection of Upper Intestinal Tract, Via Natural or Artificial Opening Endoscopic (ICD-10-PCS; CPT 43235; principal; 2023-08-24 13:15)
DX: K22.6 Gastro-esophageal laceration-hemorrhage syndrome (principal); E11.22 Type 2 diabetes mellitus with diabetic chronic kidney disease; N18.30 Chronic kidney disease, stage 3 unspecified; K20.90 Esophagitis, unspecified without bleeding; K22.2 Esophageal obstruction; K44.9 Diaphragmatic hernia without obstruction or gangrene; I12.9 Hypertensive chronic kidney disease with stage 1 through stage 4 chronic kidney disease, or unspecified chronic kidney disease; E78.00 Pure hypercholesterolemia, unspecified; R13.10 Dysphagia, unspecified; I25.10 Atherosclerotic heart disease of native coronary artery without angina pectoris; Z87.891 Personal history of nicotine dependence; Z86.16 Personal history of COVID-19; Z79.84 Long term (current) use of oral hypoglycemic drugs; Z79.899 Other long term (current) drug therapy; Z95.0 Presence of cardiac pacemaker
CPT/HCPCS: 43255; 43247; 43236; 82962; 88305; 88312; 88313; 99284; J7030; A4216; J1610; J2405

== ENCOUNTER → 2024-03-14 | Outpatient (CLI) | payer MEDICARE, OTHER, SELFPAY ==
[2024-03-14 13:17] LABS: ALB/GLOB Ratio 0.9 RATIO (0.9-2.4); AST(SGOT) 17 U/L (15-37); Alanine Aminotransfer ALT/SGPT 17 U/L (16-61); Albumin, Serum 3.7 g/dL (3.2-5.0); Alkaline Phosphatase 79 U/L (45-117); Anion Gap 9 (5-15); BUN 22 mg/dL (7-18); BUN/Creat Ratio 14.3 RATIO (10-20); Calcium,Total 9.1 mg/dL (8.5-10.1); Chloride 103 mmol/L (98-107); Cholesterol 147 mg/dL (200); Creatinine, Serum 1.54 mg/dL (0.70-1.30); EST Glomerular Filtration Rate 46 mL/min (>60); Est Glom Filt Rate - Afr Amer 56 mL/min (>60); Globulin 4.3 g/dL (2.2-4.2); Glucose 181 mg/dL (74-106); High Density Lipoprotein 46 mg/dL; Potassium 3.4 mmol/L (3.5-5.1); Sodium Level 140 mmol/L (136-145); Triglycerides 95 mg/dL; Very Low Density Lipoprotein 19 mg/dL (5-40)
== END | disposition home or self-care (01) ==
LOC: BIMLAB 08:55
PROVIDERS: PCP Family Medicine; Referring Provider Family Medicine; Visit Provider Family Medicine
DX: I10 Essential (primary) hypertension (principal); E78.5 Hyperlipidemia, unspecified
CPT/HCPCS: 36415; 80053; 80061

== ENCOUNTER → 2025-03-12 | Outpatient (CLI) | payer MEDICARE, OTHER, SELFPAY ==
[2025-03-12 13:16] LABS: Anion Gap 12 (5-15); BUN 18 mg/dL (4-19); Calcium,Total 9.1 mg/dL (7.6-11.0); Carbon Dioxide 26.2 mmol/L (21.0-32.0); Chloride 99 mmol/L (98-108); Creatinine, Serum 1.64 mg/dL (0.70-1.20); EST Glomerular Filtration Rate 42 (>60); Glucose 199 mg/dL (70-99); Potassium 3.8 mmol/L (3.3-5.1); Sodium Level 137 mmol/L (133-145)
== END | disposition home or self-care (01) ==
LOC: BIMLAB 09:21
PROVIDERS: PCP Family Medicine; Visit Provider Family Medicine
DX: N18.30 Chronic kidney disease, stage 3 unspecified (principal)
CPT/HCPCS: 36415; 80048

== ENCOUNTER 2025-09-08 16:19 | Inpatient (IN) | payer MEDICARE, OTHER, SELFPAY ==
[2025-09-08] VITALS (7 sets, daily range): BP systolic 146–177; BP diastolic 80–96; PULSE 95–103; RESP 15–25; TEMP 37.1–37.4; O2SAT 96–99; BMI 23.0
--- NOTE | 2025-09-08 16:35 | CT_ITS ---
PROCEDURE: BRAIN/HEAD WITHOUT CONTRAST 09/08/2025 REASON FOR EXAM: ALOC AND FALLS TECHNIQUE: Procedure Code: CTBR Modality: CT Procedure: BRAIN/HEAD WITHOUT CONTRAST Coronal and Sagittal reconstruction series were provided. One or more dose reduction techniques were used (e.g., Automated exposure control, adjustment of the mA and/or kV according to patient size, use of iterative reconstruction technique. RADIATION DOSE SUMMARY: CTDlvol: 45 mGy DLP: 846 mGycm COMPARISON: None FINDINGS: Brain: There is no evidence of hemorrhage, acute ischemia or mass. No extra- axial fluid collection, midline shift or mass effect. CSF Spaces: [id number] volume loss is present. Sinuses/Mastoids: Mastoid air cells are clear. Circumferential mucosal thickening left maxillary sinus and ethmoid sinuses. Bones: No fracture CT/Brain/Head without Contrast IMPRESSION: 1. No evidence of intracranial hemorrhage or acute ischemia. 2. Changes of chronic microvascular ischemia and volume loss. 3. Ethmoid and left maxillary sinus mucosal thickening. Reading Location: [id number]
--- NOTE | 2025-09-08 16:35 | EKG12_ITS ---
Test Reason : Blood Pressure : */* mmHG Vent. Rate : 95 BPM Atrial Rate : 95 BPM P-R Int : 152 ms QRS Dur : 154 ms QT Int : 430 ms P-R-T Axes : 62 -76 89 degrees QTcB Int : 540 ms Atrial-sensed ventricular-paced rhythm Abnormal ECG Confirmed by DIANE WEST, RADHA ([id number]), technical writer and editor FERNANDA STRICKLAND ([id number]) on 09/10/2025 1:18:32 PM Referred By: Confirmed By: RADHA CONTRERAS MD
--- NOTE | 2025-09-08 16:36 | ED.VIS.FALL ---
HPI HPI - Fall History of Present Illness Chief Complaint: Fall Informant: patient and EMS Occured/Mechanism Occurred: Today Mechanism/Context: Yes same level fall Usually ambulates: Without assistance Pain/Injury Pain Location: head Current Severity: Mild Maximum Severity: Mild Associated Symptoms Associated Symptoms: Negative for Parasthesias, Weakness, Loss of function, Inability to ambulate, Loss of consciousness or Amnesia Narrative Narrative: 79-year-old male history of hypertension. Reportedly had 3 falls today at home. Brought in by EMS. Lives at home with his . He denies any recent illness. He denies nausea, vomiting or diarrhea. He denies fever or chills. He denies chest pain or shortness of breath. He denies abdominal pain. Reportedly also he had some urinary incontinence at home. Patient states has been eating and drinking well. He denies any recent hospitalization. He denies any fever. On at least one of the falls today he did hit his head. Denies any headache. Denies being on any blood thinners. 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 Pure hypercholesterolemia Essential hypertension Hypertension Atrioventricular block, first degree Heart block AV second degree Atrial septal defect Palpitations Cardiac murmur Encounter for long-term current use of high risk medication Nonspecific abnormal unspecified cardiovascular function study hyperlipidemia Home Medications ?Medication ?Instructions ?Recorded ?Last Taken ?Type metoprolol succinate 25 mg 25 mg PO DAILY #90 tabs 09/28/24 Unknown Rx tablet,extended release 24 hr atorvastatin 10 mg tablet 10 mg PO QHS #90 TABLETS 12/25/24 Unknown Rx pantoprazole 40 mg tablet,delayed 40 mg PO Q12H 12 months #60 tabs 12/27/24 Unknown Rx release amlodipine 5 mg tablet 5 mg PO DAILY #90 tabs 03/12/25 Unknown Rx chlorthalidone 25 mg tablet 25 mg PO DAILY #90 tabs 03/12/25 Unknown Rx clonidine HCl 0.1 mg tablet See Rx Instructions .Route 03/12/25 Unknown Rx .COMPLEX #180 tabs metformin 500 mg tablet 500 mg PO QDAY #90 tabs 05/21/25 Unknown Rx Allergy/AdvReac Type Severity Reaction Status Date / Time hydralazine (Hydralazine) Allergy Unknown Verified 09/08/25 16:26 hydrochlorothiazide (From Allergy Unknown Verified 09/08/25 16:26 Diovan HCT) valsartan (From Diovan HCT) Allergy Unknown Verified 09/08/25 16:26 Family History Mother CVA (cerebral vascular accident) Father Cancer Brother CAD (coronary artery disease) Sister Breast cancer Surgical History History of cholecystectomy Social History Smoking Status: Former smoker how long ago did patient quit smokin years ago alcohol intake: never substance use type: does not use caffeine: Yes Type: coffee Number of servings: 2 what type of physical activity do you participate in: walking and bicycling frequency: daily ROS ROS ED ROS Narrative Patient denies recent illness. Constitutional Constitutional ED: Denies chills or fever(s) Eyes Eyes: Denies blurry vision ENT ENT ED: Denies ear pain Cardiovascular Cardiovascular: Denies chest pain Respiratory/Chest Respiratory/Chest: Denies cough or dyspnea Gastrointestinal Gastrointestinal: Denies abdominal pain, diarrhea, nausea or vomiting Genitourinary Genitourinary ED: Denies dysuria or hematuria Musculoskeletal Musculoskeletal: Denies arthralgias Integumentary Denies abscess Neurologic Neurologic: Denies headache(s) Psychiatric Psychiatric: Denies anxiety or depression Endocrine Endocrinology: Denies polydipsia Hematologic/Lymphatic Hematologic/Lymphatic: Denies easy bleeding or lymphadenopathy Allergic/Immunologic Allergic/Immunologic ED: Denies mouth swelling, tongue swelling or urticaria EXAM Physical Exam Narrative Exam Narrative: 79-year-old male sitting upright in bed vital signs stable afebrile does not look septic toxic he is in no distress. His pulse ox is 97% on room air no hypoxia. No family is with him. H EENT exam pupils are round react light. Moist mutes membranes. No signs of trauma to his face or scalp. Nontender no hematoma. No laceration. Neck nontender no JVD. No lymphadenopathy. Back nontender. Small abrasion over his left shoulder blade area. No bruising. No spine tenderness. Lungs clear to auscultation bilaterally. Heart regular rhythm rate about 95 no murmur. Chest wall and ribs nontender. No bruising. No crepitance or subcu air. No bony deformity. Abdomen soft nontender nondistended. Normal bowel sounds without peritoneal signs. Pelvic girdle intact. He is moving all 4 extremities. He has normal leak patcher strength. He has normal dorsi plantarflexion. He is able to flex and extend at his elbows and wrists. His hips knees and ankles are nontender with normal flexion extension and dorsi and plantarflexion. Neurologically he thought it was September but he knew the year, president denied states and he knew he was in the hospital. He is answering questions and following commands. Const Vital Signs: 09/08/25 16:20 09/08/25 16:26 09/08/25 16:45 Temperature 98.7 F 98.7 F Temperature Source Oral Oral Pulse Rate 96 96 Respiratory Rate 18 25 H Respiratory Effort Normal Respiratory Depth Normal Respiratory Pattern Normal Blood Pressure 171/85 H 171/85 H Blood Pressure Mean 113 113 Pulse Ox 97 99 Oxygen Delivery Method Room Air Room Air Room Air MDM MDM MDM Narrative Medical decision making narrative: 79-year-old male reportedly fell 3 times a day and has had some urinary incontinence. CAT scan of his brain will be obtained due to slight confusion and possible head trauma. Even there is no signs on exam. Will be worked up for possible infection versus electrolyte abnormalities or other etiologies with lab work and a UA. Repeat exam no significant change. He is resting in bed comfortably around 5:25 PM. His daughter and son-in-law are both present in the room. I went over all test results with the patient and them. Patient will be admitted for further evaluation. Dizziness and frequent falls. History & Record Review Discussion w/independent historian: Patient Additional record(s) reviewed:: Prior outpatient record, Prior ED visit, Prior labs and No prior records Lab Data Attestation: I reviewed the patient's lab results. Lab results narrative: CBC shows a white count 11.0. H&H 14 and 44. Platelets 297. Chemistries show a gap of 14. BUN and creatinine 11 and 1.27. Glucose 154. Liver enzymes unremarkable. AST of 40. Urinalysis shows 250 occult blood. 10-25 red cells. No white cells no bacteria. Chest x-ray chronic changes. Labs: Laboratory Results - last 24 hr 09/08/25 09/08/25 16:12 16:44 WBC 11.0 RBC 4.60 Hgb 14.7 Hct 44.1 MCV 95.9 H MCH 32.0 MCHC 33.3 RDW Std Deviation 48.0 H RDW Coeff of Beena 13.7 Plt Count 297 MPV 10.5 Immature Gran % (Auto) 0.500 Neut % (Auto) 80.7 H Lymph % (Auto) 6.7 L [place] % (Auto) 9.7 Eos % (Auto) 1.6 Baso % (Auto) 0.8 Absolute Neuts (auto) 8.9 H Absolute Lymphs (auto) 0.74 L Nucleated RBC % 0 Sodium 140 Potassium 3.6 Chloride 100 Carbon Dioxide 25.3 Anion Gap 14 BUN 11 Creatinine 1.27 H Estim Creat Clear Calc 49.75 L Est GFR (MDRD) Non-Af 57 L BUN/Creatinine Ratio 8.8 L Glucose 154 H Calcium 9.7 Total Bilirubin 0.91 AST 40 H ALT 24 Alkaline Phosphatase 94 Total Protein 8.8 H Albumin 4.6 Globulin 4.1 Albumin/Globulin Ratio 1.1 Urine Color Yellow Urine Clarity Clear Urine pH 7.0 Ur Specific [place] 1.010 Urine Protein 100 H Urine Glucose (UA) 50 H Urine Ketones 5 H Urine Occult Blood 250 H Urine Nitrite Negative Urine Bilirubin Negative Urine Urobilinogen Normal Ur Leukocyte Esterase Negative Urine RBC 10-25 SEEN Urine WBC 0 SEEN Ur Squamous Epith Cells 0 SEEN Urine Bacteria 0 SEEN Urine Mucus 0 SEEN Radiography Chest X-Ray - ED: 2 View, Read by ED Physician, Normal, Heart, Lungs, Mediastinum, Bony Structures, No Acute Disease and Chronic Changes Diagnostic Testing: Clinical Impression(s) from Imaging Studies Brain CT 09/08/25 16:35 IMPRESSION: 1. No evidence of intracranial hemorrhage or acute ischemia. 2. Changes of chronic microvascular ischemia and volume loss. 3. Ethmoid and left maxillary sinus mucosal thickening. Reading Location: [facility] Chest x-ray, 2 views, AP and lateral, interpreted by myself shows normal cardiac silhouette. Normal lung sanchez. No pneumonia. Left-sided pacemaker. Chronic changes. No acute process. Rhythm Strip Rhythm Strip: Paced Rate: 95 Ectopy: None EKG Initial EKG: Attestation: I personally reviewed and interpreted this EKG as follows: Interpretation: Paced Comments: Paced rhythm rate of 95 with no acute signs of CO or ischemia. Discharge Plan Triage Chief Complaint: Fall ED Provider: Enzo Kirk Dx/Rx/DC Orders Clinical Impression: Multiple falls, Dizziness Prescriptions: No Action amlodipine 5 mg tablet 5 mg PO DAILY Qty: 90 4RF chlorthalidone 25 mg tablet 25 mg PO DAILY Qty: 90 4RF clonidine HCl 0.1 mg tablet See Rx Instructions .ROUTE .COMPLEX Qty: 180 4RF Dose Instruction: TAKE 1 TABLET BY MOUTH TWICE A DAY Rx Instructions: TAKE 1 TABLET BY MOUTH TWICE A DAY metoprolol succinate 25 mg tablet extended release 24 hr 25 mg PO DAILY Qty: 90 3RF atorvastatin 10 mg tablet 10 mg PO QHS Qty: 90 3RF pantoprazole 40 mg tablet,delayed release (DR/EC) 40 mg PO Q12H 360 Days Qty: 60 11RF metformin 500 mg tablet 500 mg PO QDAY Qty: 90 1RF Primary Care Provider: Kumar Stephenson Referrals: Kumar Stephenson, [Primary Care Provider, Internal Medicine] Print Language: Frisian
--- NOTE | 2025-09-08 16:40 | ED.RN ---
Pt up to stand @ bedside with this RN and Jerry Ventura RN to assist with using a urinal. Pt slides backward, caught by RN. Pt unable to sit up on own. Dr. Kirk made aware, not safe to perform orthostatic vital signs
[2025-09-08 16:44] LABS: Hematocrit 44.1 % (40-54); Hemoglobin 14.7 g/dL (13.0-16.5); Immature Granulocytes Count 0.060 X10^3/uL (0.0-0.0); Mean Corp Hgb Conc 33.3 g/dL (32-36); Mean Corpuscular Volume 95.9 fL (80-94); Mean Platelet Vol. 10.5 fl (6.2-12.0); NRBC Flagged by Analyzer 0 % (0-5); Platelet Count 297 K/mm3 (150-450); RBC Distribution Width CV 13.7 % (11.6-14.6); RBC Distribution Width SD 48.0 fl (35.1-43.9); Red Blood Count 4.60 M/mm3 (4.6-6.2); White Blood Count 11.0 K/mm3 (4.4-11.0)
[2025-09-08 16:47] LABS: Mucous, Urine 0 SEEN /hpf (<or=2+); Squamous Epithelial Cells - UA 0 SEEN /hpf (0-5)
[2025-09-08 16:48] LABS: Color, Urine Yellow (Yellow); Glucose, Dipstick 50 mg/dl (Normal); Ketone-Dipstick 5 mg/dl (Negative); Leukocyte Esterase-Dipstick Negative /ul (Negative); Nitrite-Dipstick Negative (Negative); Occult Blood-Urine 250 /ul (Negative); Protein-Dipstick 100 mg/dl (Negative); Specific Gravity, Urine 1.010 (1.002-1.030); Urine Bilirubin Dipstick Negative (Negative)
--- NOTE | 2025-09-08 16:49 | ED.RN ---
pt and family unaware of home medications.
--- OUTSIDE RECORDS SUMMARY | 2025-09-08 16:57 | XMS RPT_ITS | CCD ---
Author Organization [facility] Team Providers Care Transaction Processor Name Role Phone VANESSA PITTS) Unavailable Unavailable ROSIE STEPHENSON Unavailable Unavailable VANESSA PITTS) Unavailable Unavailable Dr. Rosie Stephenson Primary Care Provider Dr. Rosie Stephenson Referring Provider Julee Delnaey Attending Provider Unavailable Dr. Rosie Stephenson Attending Provider Dr. Rosie Stephenson Primary Care Provider [phone] Dr. Rosie Stephenson Referring Provider Julee Delaney Attending Provider Unavailable Dr. Rosie Stephenson Attending Provider Dr. Yohannes Lux Attending Provider [phone] Dr. Yohannes Lux Referring Provider Dr. Rosie Stephenson Referring Provider [phone] Bernabe SMALLS, PA Camilla Blake Attending Provider Dr. Rosie Stephenson Primary Care Provider Dr. Rosie Stephenson Referring Provider [phone] Bernabe SMALLS, PA Camilla Blake Attending Provider Dr. Yohannes Lux Attending Provider Dr. Yohannes Lux Referring Provider Dr. Rosie Stephenson Attending Provider [phone] Dr. Rosie Stephenson DO Primary Care Provider [phone] Dr. Yohannes Lux MD Attending Provider Dr. Yohannes Lux MD Referring Provider [phone] Dr. Bob Stephenson DOlas R Referring Provider [phone] Thomas HELM-CJojo Attending Provider [phone] Dr. Rosie Stephenson DO Attending Provider [phone] Dr. Rosie Stephenson DO Primary Care Physician Jose J WEST, Dr. Sheffield Attending Physician [phone] Jose J WEST, Dr. Sheffield Referring Provider [phone] Dr. Rosie Stephenson DO Attending Physician [phone] Sachin BORGES, Dr. Rosie Zelaya Referring Provider [phone] Julee Delaney Attending Physician Unavailable Brown, Rosie R Primary Care Unavailable Jose J, Yohannes Attending Unavailable Jose J, Yohannes Referring Unavailable Brown, Rosie R Primary Care Unavailable Jose J, Randolph Attending Unavailable Jose J, Yohannes Referring Unavailable Brown, Rosie R Primary Care Unavailable Jojo Guzman Attending Unavailable Brown, Rosie R Referring Unavailable Brown, Rosie R Primary Care Unavailable Brown, Rosie R Attending Unavailable Brown, Rosie R Referring Unavailable Brown, Rosie R Primary Care Unavailable Jose J, Yohannes Attending Unavailable Jose J, Randolph Referring Unavailable Brown, Rosie R Primary Care Unavailable Jose J, Yohannes Attending Unavailable Brown, Rosie R Referring Unavailable Jose J, Randolph Attending Unavailable Jose J, Randolph Referring Unavailable Brown, Rosie R Primary Care Unavailable Jose J, Randolph Attending Unavailable Brown, Rosie R Referring Unavailable Brown, Rosie R Primary Care Unavailable Brown, Rosie R Primary Care Unavailable Brown, Rosie R Attending Unavailable Jose J, Randolph Attending Unavailable Jose J, Yohannes Referring Unavailable Brown, Rosie R Primary Care Unavailable NURSE, BIM Attending Unavailable Brown, Rosie R Referring Unavailable Brown, Rosie R Primary Care Unavailable Brown, Rosie R Primary Care Unavailable Brown, Rosie R Attending Unavailable Brown, Rosie R Referring Unavailable Dr. Rosie Stephenson DO Primary Care Physician Dr. Rosie Stephenson DO Referring Provider [phone] Jose J WEST, Dr. Sheffield Attending Physician [phone] Dr. Yohannes Lux MD Referring Provider [phone] NURSE, BIM Attending Physician Unavailable Allergies Allergy Classification Reported Allergen(s) Allergy Type Date of Onset Reaction(s) Facility (1 source) cephalexin; Translations: [CEPHALEXIN] Drug Allergy 06-19-20 13 [facility] Repository (14 sources) hydrALAZINE; Translations: [HYDRALAZINE] Drug Allergy 03-22-20 14 AO, Unknown [facility] Repository (1 source) Latex; Translations: [LATEX] Propensity to adverse reactions to drug (disorder) 06-25-20 13 [facility] Repository (12 sources) hydroCHLOROthiazide Drug Allergy 01-28-20 Unknown [facility] (12 sources) valsartan Drug Allergy 01-28-20 Unknown [facility] (1 source) hydroCHLOROthiazide Drug Allergy 04-09-20 [facility] Repository (1 source) valsartan Drug Allergy 04-09-20 [facility] Repository Medications Current Medications Medication Drug Class(es) Dates Sig (Normalized) Sig (Original) metFORMIN hydrochloride 500 mg oral tablet (20 sources) Biguanide Start: 04-09-2025 End: 05-21-2025 take 1 tablet by mouth once daily Start: 03-12-2025 End: 04-09-2025 take 1 tablet by mouth twice daily Metformin 500 mg tablet Discontinued 500 mg PO TWICE A DAY 180 March 12, 2025 9:13am April 09, 2025 9:56am Start: 01-27-2022 End: 03-12-2025 take 1 tablet by mouth once Metformin 500 mg tablet Di scontinued 500 mg PO ONCE 90 0 February 19, 2025 11:36am March 12, 2025 9:08am Start: 11-04-2021 End: 01-27-2022 take 1 tablet by mouth twice daily Metformin 500 mg tablet Discontinued 500 mg PO TWICE A DAY 180 2 November 04, 2021 1:00am January 27, 2022 10:24am Completed/Discontinued Medications Medication Drug Class(es) Dates Sig (Normalized) Sig (Original) amLODIPine 5 mg oral tablet (20 sources) Dihydropyridine Calcium Channel Tommie Start: 02-26-2019 End: 02-26-2019 take 0.5 tablet by mouth once daily Amlodipine 5 mg tablet Discontinued 5 mg PO DAILY 30 February 26, 2019 3:28pm February 26, 2019 3:30pm 1/2 tablet (2.5 mg) a day Start: 09-20-2018 End: 03-12-2025 take 1 tablet by mouth once daily Amlodipine 5 mg tablet Discontinued 5 mg PO DAILY 90 3 September 30, 2022 5:27pm May 16, 2023 11:24am atorvastatin 10 mg oral tablet (20 sources) HMG-CoA Reductase Inhibitor Start: 06-28-2014 End: 12-25-2024 take 1 tablet by mouth at bedtime Atorvastatin 10 mg tablet Discontinued 10 mg PO AT BEDTIME 90 3 March 06, 2024 8:06am December 25, 2024 9:07am cephalexin 500 mg oral capsule (12 sources) Cephalosporin Antibacterial Start: 01-19-2021 End: 05-13-2021 take 1 capsule by mouth twice daily Cephalexin 500 mg capsule Discontinued 500 mg PO TWICE A DAY 14 0 January 19, 2021 12:00am May 13, 2021 8:29am chlorthalidone 25 mg oral tablet (20 sources) Thiazide-like Diuretic Start: 11-08-2018 End: 03-12-2025 take 1 tablet by mouth once daily Chlorthalidone 25 mg tablet Discontinued 25 mg PO DAILY 90 February 06, 2019 10:04am April 26, 2019 8:44am cloNIDine hydrochloride 0.1 mg oral tablet (20 sources) Central alpha-2 Adrenergic Agonist Start: 02-08-2018 End: 03-12-2025 take 1 tablet by mouth twice daily Clonidine Hcl 0.1 mg tablet Discontinued 0 .ROUTE .COMPLEX 180 4 February 23, 2023 9:36am February 14, 2024 11:29am TAKE 1 TABLET BY MOUTH TWICE A DAY Start: 06-28-2014 End: 02-08-2018 take 1 tablet by mouth once daily Clonidine Hcl 0.1 MG tablet Discontinued 0.1 mg PO DAILY June 28, 2014 12:00am February 08, 2018 3:46pm Crutch (8 sources) Start: 01-19-2021 End: 03-17-2022 Crutch Discontinued 0 .ROUTE .MEDSUPPLY January 19, 2021 9:50am March 17, 2022 9:00am As directed Start: 01-19-2021 End: 03-17-2022 Crutch Discontinued 0 .ROUTE .MEDSUPPLY 2 January 19, 2021 10:50am March 17, 2022 10:00am As directed Start: 01-19-2021 Crutch Active 0 .ROUTE .MEDSUPPLY 2 January 19, 2021 10:50am As directed Start: 01-19-2021 End: 01-19-2021 Crutch Discontinued 0 .ROUTE .MEDSUPPLY 2 January 19, 2021 9:31am January 19, 2021 10:52am As directed Start: 01-19-2021 End: 01-19-2021 Crutch Discontinued 0 .ROUTE .MEDSUPPLY 2 January 18, 2021 11:00pm January 19, 2021 9:52am As directed Start: 01-19-2021 End: 01-19-2021 Crutch Discontinued 0 .ROUTE .MEDSUPPLY 2 January 19, 2021 12:00am January 19, 2021 10:52am As directed Crutch misc (16 sources) Start: 01-19-2021 End: 03-17-2022 Crutch misc Discontinued 0 . ROUTE .MEDSUPPLY 2 0 January 19, 2021 10:50am March 17, 2022 10:00am As directed Start: 01-19-2021 End: 03-17-2022 Crutch misc Discontinued 0 . ROUTE .MEDSUPPLY 2 January 19, 2021 10:50am March 17, 2022 10:00am As directed Start: 01-19-2021 End: 01-19-2021 Crutch misc Discontinued 0 . ROUTE .MEDSUPPLY 2 0 January 19, 2021 12:00am January 19, 2021 10:52am As directed Start: 01-19-2021 End: 01-19-2021 Crutch misc Discontinued 0 . ROUTE .MEDSUPPLY 2 January 19, 2021 12:00am January 19, 2021 10:52am As directed Fluad Quad [id number](65yr up)(PF) 60 mcg (15 mcg x 4)/0.5mL IM syringe (flu vac (1 source) Start: 07-07-2021 End: 07-07-2021 Fluad Quad [id number](65yr up)(PF) 60 mcg (15 mcg x 4)/0.5mL IM syringe (flu vac Discontinued 60 MCG IM ONCE 0.5 July 07, 2021 2:16pm July 07, 2021 2:25pm hydroCHLOROthiazide 12.5 mg oral capsule (20 sources) Thiazide Diuretic Start: 06-28-2014 End: 11-08-2018 take 1 capsule by mouth once daily in the morning Hydrochlorothiazide 12.5 mg capsule Discontinued 12.5 mg PO EVERY MORNING 90 3 May 12, 2018 10:09am November 08, 2018 10:42am 24 hr metoprolol succinate 25 mg extended release oral tablet (20 sources) beta-Adrenerg ic Tommie Start: 06-28-2014 End: 09-28-2024 take 1 tablet by mouth once daily Metoprolol Succinate 25 mg tablet extended release 24 hr Discontinued 25 mg PO DAILY 90 2 January 03, 2024 4:32pm September 28, 2024 5:05pm Nirmatrelvir-Ritonavir (11 sources) Start: 05-20-2022 End: 06-09-2022 Nirmatrelvir-Ritonavir (Paxlovid (Eua)) 150-100 mg tablets,dose pack Discontinued 0 PO per package directions 1 May 20, 2022 12:00am June 09, 2022 9:08am PO PER PKG DIR Start: 05-20-2022 End: 06-09-2022 Nirmatrelvir-Ritonavir (Paxl ovid (Eua)) 150-100 mg tablets,dose pack Discontinued 0 PO per package directions May 19, 2022 11:00pm June 09, 2022 8:08am PO PER PKG DIR Start: 05-20-2022 End: 06-09-2022 Nirmatrelvir-Ritonavir (Paxl ovid (Eua)) 150-100 mg tablets,dose pack Discontinued 0 PO per package directions May 20, 2022 12:00am June 09, 2022 9:08am PO PER PKG DIR pantoprazole 40 mg delayed release oral tablet (20 sources) Proton Pump Inhibitor Start: 08-24-2023 End: 12-27-2024 take 1 tablet by mouth every twelve hours Pantoprazole 40 mg tablet,delayed release (DR/EC) Discontinued 40 mg PO Q12H 180 90 0 November 15, 2023 12:38pm February 03, 2024 10:05am microencapsulated potassium chloride 20 meq extended release oral tablet (20 sources) Start: 09-15-2021 End: 04-09-2025 take 1 tablet by mouth twice daily Potassium Chloride 20 mEq tablet,ER particles/crystals Discontinued 20 meq PO TWICE A DAY 180 3 April 12, 2022 8:45am May 16, 2023 11:24am Start: 02-08-2018 End: 09-15-2021 take 1 tablet by mouth once daily Potassium Chloride 20 mEq tablet,ER particles/crystals Discontinued 20 meq PO DAILY 90 3 March 23, 2021 9:45am September 15, 2021 2:45pm Start: 06-28-2014 End: 02-08-2018 take 2 tablets by mouth once daily Potassium Chloride 10 MEQ tablet,ER particles/crystals Discontinued 20 meq PO DAILY June 28, 2014 12:00am February 08, 2018 3:46pm Start: 06-28-2014 End: 02-08-2018 take 20 mEq by mouth once daily Potassium Chloride Discontinued 20 MEQ PO DAILY June 27, 2014 11:00pm February 08, 2018 2:46pm triamcinolone acetonide 1 mg/ml topical cream (12 sources) Corticosteroid Start: 11-08-2018 End: 10-31-2019 Triamcinolone Acetonide 0.1 % cream Discontinued 1 NMA TOPICAL TWICE A DAY 80 2 November 08, 2018 1:00am October 31, 2019 9:26am Problems Active Problems Problem Classification Problem Date Documented Da te Episodic/Chronic Cardiac and circulatory congenital anomalies (18 sources) Atrial septal defect; Translations: [Atrial septal defect] 02-08-2018 Chronic Cardiac dysrhythmias (12 sources) Palpitations; Translations: [Palpitations] 02-01-2018 Episodic Chronic kidney disease (20 sources) Chronic kidney disease stage 3; Translations: [Stage 3 chronic kidney disease] Chronic Chronic kidney disease (1 source) Chronic kidney disease; Translations: [Chronic kidney disease, stage 3 unspecified] Onset: Complication of device; implant or graft (4 sources) Malfunction of cardiac pacemaker; Translations: [Breakdown (mechanical) of cardiac pulse generator (battery), initial encounter] 10-06-2021 Episodic Conduction disorders (20 sources) Cardiac pacemaker in situ; Translations: [Presence of cardiac pacemaker] Onset: 5 Chronic Comment on above: 02/03/09 pacemaker i mplanted, PPM generator change 07/01/14; PPM gen change 2PPM Generator - Director Of Construction: Downstream, Model # Essentio MRI DR Model L111 , Serial # [id number] Diabetes mellitus without complication (20 sources) Type 2 diabetes mellitus; Translations: [Type 2 diabetes mellitus without complications] Onset: 5 Chronic Disorders of lipid metabolism (20 sources) Hyperlipidemia; Translations: [Pure hypercholesterolemia] Chronic Esophageal disorders (13 sources) Gastroesophageal reflux disease; Translations: [Gastro-esophageal reflux disease without esophagitis] Onset: 5 02-01-2025 Chronic Essential hypertension (20 sources) Essential hypertension; Translations: [Essential (primary) hypertension] Chronic Fluid and electrolyte disorders (13 sources) Hypokalemia; Translations: [Hypokalemia] Episodic Heart valve disorders (12 sources) Heart murmur; Translations: [Cardiac murmur, unspecified] 02-08-2018 Episodic Other aftercare (4 sources) Patient encounter status; Translations: [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] 02-08-2018 Episodic Other aftercare (8 sources) Long-term current use of drug therapy; Translations: [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] 02-08-2018 Episodic Other ear and sense organ disorders (12 sources) Presbycusis; Translations: [Presbycusis, bilateral] 11-02-2022 Episodic Other ear and sense organ disorders (1 source) Presbycusis, bilateral; Translations: [Presbyacusis] Episodic Other gastrointestinal disorders (20 sources) Dysphagia; Translations: [Dysphagia, unspecified] 03-15-2023 Episodic Other gastrointestinal disorders (2 sources) Dysphagia, unspecified; Translations: [Dysphagia, unspecified] 03-15-2023 Episodic Other hematologic conditions (11 sources) Increased globulin; Translations: [Abnormality of globulin] 03-16-2023 Episodic Other injuries and conditions due to external causes (9 sources) Obstruction of esophagus; Translations: [Unspecified foreign body in esophagus causing other injury, initial encounter] 08-24-2023 Episodic Other injuries and conditions due to external causes (1 source) Unspecified foreign body in esophagus causing other injury, initial encounter; Translations: [Foreign body in esophagus] 08-24-2023 Episodic Other screening for suspected conditions (not mental disorders or infectious disease) (20 sources) Electrocardiogram abnormal; Translations: [Abnormal electrocardiogram [ECG] [EKG]] 02-01-2018 Episodic Spondylosis; intervertebral disc disorders; other back problems (8 sources) Radicular pain; Translations: [Radiculopathy, site unspecified] 03-14-2024 Episodic Systemic lupus erythematosus and connective tissue disorders (1 source) Drug-induced systemic lupus erythematosus; Translations: [Drug-induced systemic lupus erythematosus] Onset: 6 Chronic Unclassified (1 source) Unknown / UNK(Unknown) Onset: 8 Viral infection (11 sources) Disease caused by 2019-nCoV; Translations: [COVID-19] 11-02-2022 Episodic Past or Other Problems Problem Classification Problem Date Documented Da te Episodic/Chronic Other gastrointestinal disorders (1 source) Other dysphagia; Translations: [Other dysphagia] Onset: 03-06-2025 Episodic Results Test Name Value Interpretation Reference Range Facility Pacemaker Checkon 06-17-2025 Pacemaker Check [facility] 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 [place] [address] OFFICE VISIT Date of Service: 04/09/25 MR#: [id number] Acct: [id number] Name: DERRICK MCMULLEN Rep #: [id number] : 1945 Provider: Dr. Yohannes Lux MD Age/Sex: 79/M Location: [facility] Status: Signed HPI HPI History of Present Illness Details: DERRICK MCMULLEN, is a 79 M who presents to the office today for a cardiovascular follow up with a history of second-degree AV block with permanent pacemaker, small ASD vs. PFO, hyperlipidemia, and hypertension. From a cardiac standpoint, patient is doing well. He does not have any chest discomfort/heaviness/tig htness. His exercise tolerance is stable for his age. He does not have any worsening symptoms of shortness of breath. He denies any PND. He does not have any orthopnea. He does not have any symptoms of congestive heart failure. He does not have any palpitations that he is aware of. He does not have any lightheadedness or dizziness. He does not have any near-syncope or syncope. He does not have any lower extremity edema. He does not have any symptoms of claudication. 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 Accompanied by: Self Is patient in pain?: No Allergies hydralazine (Hydralazine) Allergy (Verified 04/09/25 09:54) Unknown hydrochlorothiazide (From Diovan HCT) Allergy (Verified 04/09/25 09:54) Unknown valsartan (From Bikantavan HCT) Allergy (Verified 04/09/25 09:54) Unknown Medications ???Medication ???Instructions ???Recorded ???Confirmed ???Type metoprolol succinate 25 mg 25 mg PO DAILY #90 tabs 09/28/24 0 04/09/25 Rx tablet,extended release 24 hr atorvastatin 10 mg tablet 10 mg PO QHS #90 TABLETS 12/25/24 04/09/25 Rx pantoprazole 40 mg tablet,delayed 40 mg PO Q12H 12 months #60 tabs 12/27/24 04/09/25 Rx release amlodipine 5 mg tablet 5 mg PO DAILY #90 tabs 03/12/25 Rx chlorthalidone 25 mg tablet 25 mg PO DAILY #90 tabs 03/12/25 0 04/09/25 Rx clonidine HCl 0.1 mg tablet See Rx Instructions .Route 5 04/09/25 Rx .COMPLEX #180 tabs metformin 500 mg tablet 500 mg PO QDAY 04/09/25 History Have you fallen in the past year?: No PFSH Medical History Distal esophageal obstruction due to foreign body COVID-19 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 Pure hypercholesterolemia Essential hypertension Hypertension Atrioventricular block, first degree Heart block AV second degree Atrial septal defect Palpitations Cardiac murmur Encounter for long-term current use of high risk medication Nonspecific abnormal unspecified cardiovascular function study hyperlipidemia Surgical History History of cholecystectomy Family History Mother CVA (cerebral vascular accident) Father Cancer Brother CAD (coronary artery disease) Sister Breast cancer Social History Smoking Status: Former smoker how long ago did patient quit smokin years ago alcohol intake: never substance use type: does not use caffeine: Yes Type: coffee Number of servings: 2 what type of physical activity do you participate in: walking and bicycling frequency: daily ROS Const Const: Negative for fatigue, weakness, headache(s), daytime sleepiness or difficulty sleeping ENT ENT: Negative for headache(s), dizziness or Nosebleed/epistaxis Cardio Chest Pain: No Palpitations: No Edema: None Resp Respiratory: Negative for SOB with activity, SOB at rest, SOB orthopnea SOB lying down or Cough GI GI: Negative nausea, vomiting or heartburn Neuro Neuro: Negative for dizziness, lightheadedness, near syncope, headache(s) or weakness Endo Endo: Negative for fatigue Cardiology Exam Const Appearance: cooperative, healthy appearing, comfortable, no acute distress, well developed and well groomed Nutritional Appearance: average body habitus Orientation: alert, awake and oriented x3 Head Head: normal to inspection, normocephalic and atraumatic Ears: hearing grossly normal bilaterally Nose: external nose normal Face and Sinus: face symmetric Eyes Eyelids: eyelids normal Conjunctivae: conjunctivae normal Pupils: PERRL and pupil size EOM: EOM intact bilaterally Neck Neck: normal visual inspection and full ROM Carotids: Negative bruit Chest Chest (more content not included)... Normal [facility] Anion gap in Serum or Plasma Ordered By: Rosie Stephenson on 03-12-2025 Anion gap [Moles/Vol] 12 mmol/L 02-07 [facility] BUN/creatinine ratioOrdered By: Rosie Stephenson on 03-12-2025 Urea nitrogen/Creatinine [Mass ratio] 11.0 mg/mg - [facility] Basic Metabolic Profile (BMP )on 03-12-2025 BUN/CRE 11.0 RATIO Normal - [facility] Comment on above: Performed By: #### L 500.2500 #### [facility] [address] [place], [address] Calcium [Mass/Vol] 9.1 mg/dL Normal 7.6-11.0 [facility] Comment on above: Performed By: #### L 500.2500 #### [facility] [address] [place], [address] Chloride [Moles/Vol] 99 mmol/L Normal 98-108 [facility] Comment on above: Performed By: #### L 500.2500 #### [facility] [address] [place], [address] CO2 [Moles/Vol] 26.2 mmol/L Normal 21.0-32.0 [facility] Comment on above: Performed By: #### L 500.2500 #### [facility] [address] [place], [address] Creatinine [Mass/Vol] 1.64 mg/dL High 0.70-1.20 [facility] Comment on above: Performed By: #### L 500.2500 #### [facility] [address] [place], [address] GAP 12 Normal 5-15 [facility] Comment on above: Performed By: #### L 500.2500 #### [facility] [address] [place], [address] GFR/1.73 sq M.predicted among non-blacks MDRD (S/P/Bld) [Vol rate/Area] 42 mL/min/{1.73_m2} Low >60 [facility] Comment on above: Result Comment: mL/m in/1.73m2 CKD-EPI Creatinine Equation (2020) Performed By: #### L 500.2500 #### [facility] [address] [place], [address] Glucose [Mass/Vol] 199 mg/dL High 70-99 [facility] Comment on above: Performed By: #### L 500.2500 #### [facility] [address] [place], [address] Potassium [Moles/Vol] 3.8 mmol/L Normal 3.3-5.1 [facility] Comment on above: Performed By: #### L 500.2500 #### [facility] [address] [place], [address] Sodium [Moles/Vol] 137 mmol/L Normal 133-145 [facility] Comment on above: Performed By: #### L 500.2500 #### [facility] [address] [place], [address] Urea nitrogen [Mass/Vol] 18 mg/dL Normal 4-19 [facility] Comment on above: Performed By: #### L 500.2500 #### [facility] [address] [place], [address] Carbon dioxide, total [Moles /volume] in Central venous bloodOrdered By: Rosie Stephenson on 03-12-2025 CO2 [Moles/Vol] 26.2 mmol/L 21.0-32.0 [facility] Chloride assayOrdered By: Do karl Stephenson on 03-12-2025 Chloride [Moles/Vol] 99 mmol/L 98-108 [facility] Glomerular filtration rate ( GFR) estimation/1.73 sq m using serum, plasma, or whole bOrdered By: Rosie Stephenson on 03-12-2025 GFR/1.73 sq M.predicted among non-blacks MDRD (S/P/Bld) [Vol rate/Area] 42 mL/min/{1.73_m2} Low >60 [facility] Comment on above: mL/min/1.73m2 CKD-EP I Creatinine Equation (2020) Internal Medicine Office Vis radha 03-12-2025 Internal Medicine Office Visit [facility] [address] [place] [address] [place] [address] OFFICE VISIT Date of Service: 03/12/25 MR#: [id number] Acct: [id number] Name: MCMULLENDERRICK H Rep #: [id number] : 1945 Provider: Dr. Rosie elizondo, DO Age/Sex: 79/M Location: [facility].[facility] Status: Signed Intake Vital Signs 09/11/24 09:03 03/12/25 09:08 Height 6 ft 6 ft Weight: 166 lb 167 lb BMI 22.5 22.6 BP 112/62 112/66 Blood Pressure Location Lt brachial Lt brachial Position Sitting Sitting Respiration 16 16 Pulse 62 61 Pulse Source Monitor Monitor Temp 97.2 F L 97.5 F L Temp Source Temporal Temporal Pulse Oximetry (%) 99 Oxygen Delivery Method room air Intake Visit Reasons: 6 M FU [employer] Required: No Is patient in pain?: No Allergies hydralazine (Hydralazine) Allergy (Verified 03/12/25 09:00) Unknown hydrochlorothiazide (From Diovan HCT) Allergy (Verified 03/12/25 09:00) Unknown valsartan (From Diovan HCT) Allergy (Verified 03/12/25 09:00) Unknown Medications ???Medication ???Instructions ???Recorded ???Confirmed ???Type metoprolol succinate 25 mg 25 mg PO DAILY #90 tabs 09/28/24 0 03/12/25 Rx tablet,extended release 24 hr atorvastatin 10 mg tablet 10 mg PO QHS #90 TABLETS 12/25/24 03/12/25 Rx pantoprazole 40 mg tablet,delayed 40 mg PO Q12H 12 months #60 tabs 12/27/24 03/12/25 Rx release amlodipine 5 mg tablet 5 mg PO DAILY #90 tabs 03/12/25 Rx chlorthalidone 25 mg tablet 25 mg PO DAILY #90 tabs 03/12/25 0 03/12/25 Rx clonidine HCl 0.1 mg tablet See Rx Instructions .Route 5 03/12/25 Rx .COMPLEX #180 tabs metformin 500 mg tablet 500 mg PO BID #180 tabs 03/12/25 0 03/12/25 Rx potassium chloride 20 mEq 20 meq PO BID #180 tabs 03/12/25 0 03/12/25 Rx tablet,extended release(part/cryst) Have you fallen in the past year?: No Nurse's Note: needs metformin refilled. [facility] Medical History Distal esophageal obstruction due to foreign body COVID-19 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 Pure hypercholesterolemia Essential hypertension Hypertension Atrioventricular block, first degree Heart block AV second degree Atrial septal defect Palpitations Cardiac murmur Encounter for long-term current use of high risk medication Nonspecific abnormal unspecified cardiovascular function study hyperlipidemia Surgical History History of cholecystectomy Family History Mother CVA (cerebral vascular accident) Father Cancer Brother CAD (coronary artery disease) Sister Breast cancer Social History Smoking Status: Former smoker how long ago did patient quit smokin years ago alcohol intake: never substance use type: does not use caffeine: Yes Type: coffee Number of servings: 2 what type of physical activity do you participate in: walking and bicycling frequency: daily HPI HPI Details: DERRICK MCMULLEN, is a 79 M who presents to the office today for a routine exam. For reasons I am not certain he did not increase his metformin to twice a day. He voices no complaints at all. He has recently seen gastroenterology because he had an esophageal stricture and they see no signs of any further problems with his GI tract. ROS Const Constitutional: No body ache, chills, excessive sweating, fatigue, fever(s), frequent falls, headache(s), snoring, weakness, sleep problems or change in appetite Eyes Eyes: No blurry vision, change in vision, eye pain or Light sensitivity ENT ENT: No abnormal hearing, ear or mastoid pain, tinnitus, nasal congestion, headache(s), neck pain or sore throat Resp Respiratory: No cough, shortness of breath, snoring or wheezing Cardio Cardiology: No chest pain at rest, chest pain with exertion, excessive sweating, shortness of breath, dyspnea on exertion, lightheadedness, orthopnea or palpitations Gastro GI: No abdominal pain, change in bowel habits, constipation, cramping, diarrhea, nausea/dyspepsia or vomiting Genitourinary Male: No burning urination, painful urination, urinary incontinence or urinary frequency Musc Musculoskeletal: No abnormal gait, joint pain, back pain, limited range of motion, neck pain or numbness Skin Skin: No dry skin, redness, lesions, itchy eyes, rash or wounds Neuro Neurology: No abnormal gait, abnormal hearing, weakness, frequent falls, headache(s), memory loss or numbness Psych Psychiatric: No anxiety, No change in appetite, No depression, No memory loss and No Thoughts of harming yourself/Others Endo Endocr (more content not included)... Normal [facility] Laboratory - Hematology and Cell countsOrdered By: Rosie Stephenson on 03-12-2025 HbA1c (Bld) [Mass fraction] 8.4 % High 4.2-6.3 [facility] Potassium measurement (mass/ volume)Ordered By: Rosie Sachin on 03-12-2025 Potassium (Unsp spec) [Mass/Vol] 3.8 mmol/L 3.3-5.1 [facility] Serum creatinine measurement (mass/volume)Ordered By: Rosie Stephenson on 03-12-2025 Creatinine [Mass/Vol] 1.64 mg/dL High 0.70-1.20 [facility] Serum glucose measurement (m ass/volume)Ordered By: Rosie Stephenson on 03-12-2025 Glucose [Mass/Vol] 199 mg/dL High 70-99 [facility] Serum or plasma calcium stevan urement (mass/volume)Ordered By: Rosie Stephenson on 03-12-2025 Calcium [Mass/Vol] 9.1 mg/dL 7.6-11.0 [facility] Serum or plasma urea nitroge n measurement (mass/volume)Ordered By: Rosie Stephenson on 03-12-2025 Urea nitrogen [Mass/Vol] 18 mg/dL 4-19 [facility] Sodium levelOrdered By: Bob morris Sachin on 03-12-2025 Sodium [Moles/Vol] 137 mmol/L 133-145 [facility] Gastroenterology Visit Repor ton 02-01-2025 Gastroenterology Visit Report [facility] [address] [place] [address] OFFICE VISIT Date of Service: 02/01/25 MR#: [id number] Acct: [id number] Name: DERRICK MCMULLEN Dominga Rep #: [id number] : 1945 Provider: ISRA cavanaugh Age/Sex: 79/M Location: [facility].[facility] Status: Signed Intake Vital Signs 09/14/23 08:33 09/11/24 09:03 Height 6 ft 6 ft Intake Visit Reasons: 1 Y FU Allergies hydralazine (Hydralazine) Allergy (Verified 02/01/25 08:59) Unknown hydrochlorothiazide (From Diovan HCT) Allergy (Verified 02/01/25 08:59) Unknown valsartan (From Diovan HCT) Allergy (Verified 02/01/25 08:59) Unknown Medications ???Medication ???Instructions ???Recorded ???Confirmed ???Type potassium chloride 20 mEq 20 meq PO BID #180 tabs 05/16/23 0 02/01/25 Rx tablet,extended release(part/cryst) amlodipine 5 mg tablet 5 mg PO DAILY #90 tabs 02/14/24 Rx chlorthalidone 25 mg tablet 25 mg PO DAILY #90 tabs 02/14/24 0 02/01/25 Rx clonidine HCl 0.1 mg tablet See Rx Instructions .Route 4 02/01/25 Rx .COMPLEX #180 tabs metformin 500 mg tablet 500 mg PO ONCE #90 tabs 05/22/24 0 02/01/25 Rx metoprolol succinate 25 mg 25 mg PO DAILY #90 tabs 09/28/24 0 02/01/25 Rx tablet,extended release 24 hr atorvastatin 10 mg tablet 10 mg PO QHS #90 TABLETS 12/25/24 02/01/25 Rx pantoprazole 40 mg tablet,delayed 40 mg PO Q12H 12 months #60 tabs 12/27/24 02/01/25 Rx release Have you fallen in the past year?: No PFSH Medical History (Updated 02/01/25 @ 10:19 by ISRA Montano) Distal esophageal obstruction due to foreign body COVID-19 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 Pure hypercholesterolemia Essential hypertension Hypertension Atrioventricular block, first degree Heart block AV second degree Atrial septal defect Palpitations Cardiac murmur Encounter for long-term current use of high risk medication Nonspecific abnormal unspecified cardiovascular function study hyperlipidemia Surgical History History of cholecystectomy Family History Mother CVA (cerebral vascular accident) Father Cancer Brother CAD (coronary artery disease) Sister Breast cancer Social History Smoking Status: Former smoker how long ago did patient quit smokin years ago alcohol intake: never substance use type: does not use caffeine: Yes Type: coffee Number of servings: 2 what type of physical activity do you participate in: walking and bicycling frequency: daily HPI HPI Details: DERRICK MCMULLEN, is a 79 M who presents to the office today for established with [facility] 11.29.23 for esophageal foreign body w/EGD-9mm Bharti-robles tear, medium HH, placed on pantoprazole. He reports taking pantoprazole twice daily on an empty as best as he can remember. He denies difficulty chewing and swallowing, cough, throat clearing, sinus drainage, heartburn, reflux, nausea, emesis, abdominal bloating, excess gas, constipation, diarrhea, hematochezia, and melena. He denies any concerns or questions at this time. ROS Const Constitutional: No chills, fatigue, fever(s), decreased energy, weight change or sleep problems Eyes Eyes: No blurry vision or change in vision ENT ENT: No abnormal hearing or difficulty swallowing Resp Respiratory: No cough Cardio Cardiology: No chest pain at rest, chest pain with exertion or leg pain with exertion Gastro GI: No abdominal pain, belching, bloating, change in bowel habits, change in stool character, coffee ground emesis, constipation, cramping, diarrhea, heartburn, difficulty swallowing, feeling full early, excessive flatus, incontinent of stools, Vomiting blood/hematemesis, Blood in stool, loose stools, Black,tarry stools, nausea/dyspepsia, pain with swallowing, vomiting or other Genitourinary Male: No difficulty urinating Musc Musculoskeletal: No leg pain with exertion Skin Skin: No yellowing of the eye or itchy eyes Neuro Neurology: No abnormal hearing Psych Psychiatric: No anxiety and No depression Endo Endocrine: No cold intolerance, fatigue, heat intolerance or weight change Aller/Imm Allergy/Immunologic: No food intolerance or itchy eyes Derrick/Lymp Hematologic/Lymphatic: No easy bleeding or easy bruising Exam Const General: cooperative, healthy appearing, comfortable, no acute distress and well groomed Nutritional Appearance: average body habitus Orientation: alert and oriented x3 HENMT Head: normal to inspection Ears: hearing grossly normal bilaterally Nose: external nose normal Face and sinus: normal facial exam and face symmetric Eyes General: appea (more content not included)... Normal [facility] Internal Medicine Office Vis radha 09-11-2024 Internal Medicine Office Visit [facility] [address] [place] [address] [place] [address] OFFICE VISIT Date of Service: 09/11/24 MR#: [id number] Acct: [id number] Name: DERRICK MCMULLEN Rep #: [id number] : 1945 Provider: Dr. Rosie elizondo, DO Age/Sex: 78/M Location: [facility].[facility] Status: Signed Intake Vital Signs 03/14/24 08:27 09/11/24 09:03 Height 6 ft 6 ft Weight: 166 lb BMI 22.5 BP 112/62 Blood Pressure Location Lt brachial Position Sitting Respiration 16 Pulse 62 Pulse Source Monitor Temp 97.2 F L Temp Source Temporal Intake Visit Reasons: 6 M FU Chief Complaint: 6m f/u [employer] Required: No Accompanied by: Self Is patient in pain?: No Allergies hydralazine (Hydralazine) Allergy (Verified 09/11/24 08:58) Unknown hydrochlorothiazide (From Diovan HCT) Allergy (Verified 09/11/24 08:58) Unknown valsartan (From Diovan HCT) Allergy (Verified 09/11/24 08:58) Unknown Medications ???Medication ???Instructions ???Recorded ???Confirmed ???Type potassium chloride 20 mEq 20 meq PO BID #180 tabs 05/16/23 09/11/24 Rx tablet,extended release(part/cryst) metoprolol succinate 25 mg 25 mg PO DAILY #90 tabs 01/03/24 09/11/24 Rx tablet,extended release 24 hr pantoprazole 40 mg tablet,delayed 40 mg PO Q12H 12 months #60 tabs 02/03/24 09/11/24 Rx release amlodipine 5 mg tablet 5 mg PO DAILY #90 tabs 02/14/24 09/11/24 Rx chlorthalidone 25 mg tablet 25 mg PO DAILY #90 tabs 02/14/24 09/11/24 Rx clonidine HCl 0.1 mg tablet See Rx Instructions .Route 02/14/24 09/11/24 Rx .COMPLEX #180 tabs atorvastatin 10 mg tablet 10 mg PO QHS #90 TABLETS 03/06/24 09/11/24 Rx metformin 500 mg tablet 500 mg PO ONCE #90 tabs 05/22/24 09/11/24 Rx Have you fallen in the past year?: No [facility] Medical History COVID-19 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 Pure hypercholesterolemia Essential hypertension Hypertension Atrioventricular block, first degree Heart block AV second degree Atrial septal defect Palpitations Cardiac murmur Encounter for long-term current use of high risk medication Nonspecific abnormal unspecified cardiovascular function study hyperlipidemia Surgical History History of cholecystectomy Family History Mother CVA (cerebral vascular accident) Father Cancer Brother CAD (coronary artery disease) Sister Breast cancer Social History Smoking Status: Former smoker how long ago did patient quit smokin years ago alcohol intake: never substance use type: does not use caffeine: Yes Type: coffee Number of servings: 2 what type of physical activity do you participate in: walking and bicycling frequency: daily HPI HPI Chief Complaint: 6m f/u Details: DERRICK MCMULLEN, is a 78 M who presents to the office today for a 6-month follow-up exam. He has no complaints. ROS Const Constitutional: No body ache, chills, excessive sweating, fatigue, fever(s), frequent falls, headache(s), snoring, weakness or change in appetite Eyes Eyes: No blurry vision, change in vision, eye pain or Light sensitivity ENT ENT: No abnormal hearing, ear or mastoid pain, tinnitus, nasal congestion, headache(s), neck pain or sore throat Resp Respiratory: No cough, shortness of breath, snoring or wheezing Cardio Cardiology: No chest pain at rest, chest pain with exertion, excessive sweating, dyspnea on exertion, lightheadedness, orthopnea or palpitations Gastro GI: No abdominal pain, change in bowel habits, constipation, cramping, diarrhea, nausea/dyspepsia or vomiting Genitourinary Male: No burning urination, painful urination, urinary incontinence or urinary frequency Musc Musculoskeletal: No abnormal gait, joint pain, back pain, limited range of motion, muscle weakness, neck pain or numbness Skin Skin: No dry skin, redness, lesions, itchy eyes, rash or wounds Neuro Neurology: No abnormal gait, abnormal hearing, weakness, frequent falls, headache(s), memory loss or numbness Psych Psychiatric: No anxiety, No change in appetite, No depression, No memory loss and No Thoughts of harming yourself/Others Endo Endocrine: No cold intolerance, excessive sweating, fatigue, flushing, heat intolerance, increased thirst/drinking or increased hunger Aller/Imm Allergy/Immunologic: No itchy eyes, seasonal allergy symptoms, hives or wheezing Derrick/Lymp Hematologic/Lymphatic: No easy bleeding or easy bruising Exam Const General: cooperative and healthy appearing Nutritional Appearance: thin Orientation: alert HENMO Head: normal to inspection Ears: hearing grossly (more content not included)... Normal [facility] Basophil percentageOrdered B y: Dr. Stephenson on 03-15-2023 Bilirubin [Mass/Vol] 0.90 mg/dL 0.20-1.00 [facility] Comment on above: For patients on eltr ombopag therapy, use of Dimension [place] TBIL is not recommended. Chloride [Moles/Vol] 104 mmol/L 98-107 [facility] Cholesterol [Mass/Vol] 125 mg/dL <200 [facility] Comment on above: <200 mg/dL Desirable 200-240 mg/dL Borderline >240 mg/dL High Risk Glucose [Mass/Vol] 135 mg/dL 74-106 [facility] Comment on above: Fasting Glucose resu lt greater than or equal to 126 mg/dL suggests DIABETES MELLITUS per A.D.A. criteria. Potassium [Moles/Vol] 4.1 mmol/L 3.5-5.1 [facility] Comment on above: Slight Hemolysis, Re sult may be falsely increased. Protein [Mass/Vol] 8.4 g/dL 6.4-8.2 [facility] Sodium [Moles/Vol] 140 mmol/L 136-145 [facility] Triglyceride [Mass/Vol] 84 mg/dL <[address] [facility] Comment on above: The drugs N-Acetylcy steine and Metamizole may falsely depress this assay.Serum Triglycerides Reference Interval Normal <150 mg/dL Borderline high 150 - 199 mg/dL High 200 - 499 mg/dL Very High > or = 500 mg/dL Laboratory - Chemistry and C hemistry - challengeOrdered By: Dr. Stephenson on 03-15-2023 ALP [Catalytic activity/Vol] 101 U/L 45-117 [facility] ALT [Catalytic activity/Vol] 22 U/L 16-61 [facility] CO2 [Moles/Vol] 30.0 mmol/L 21.0-32.0 [facility] Globulin (S) [Mass/Vol] 4.8 g/dL 2.2-4.[address] [facility] Urea nitrogen/Creatinine [Mass ratio] 17.1 mg/mg - [facility] Laboratory - Hematology and Cell countson 03-15-2023 HbA1c (Bld) [Mass fraction] 7.2 % 4.2-6.3 [facility] No Panel InformationOrdered By: Dr. Stephenson on 03-15-2023 Addendum Document Comment . [facility] Comment on above: The SPE pattern appe ars unremarkable. Evidence ofmonoclonal protein is not apparent.Performed at: [facility] [id number] Director: Nicolas Metzger PhD, Phone: [phone] Hirxs-8-Grxzpiqcu 0.3 g/dL 0.0-0.4 [facility] Dbdyh-3-Laigcikqj 0.9 g/dL 0.4-1.0 [facility] Estimated GFR (MDRD) Amer 77 mL/min >60 [facility] Comment on above: GFR Calc Estimated GFR (MDRD) Non-Af Amer 64 mL/min >60 [facility] Comment on above: Non- GFR Calc Gamma Globulins 1.7 g/dL 0.4-1.8 [facility] Protein Fractions Elph [Inte rp]Ordered By: Dr. Stephenson on 03-15-2023 Protein Fractions [Interp] Comment . [facility] Comment on above: Protein electrophore sis scan will follow via computer,mail, or transitional care nurse delivery. Serum albumin to globulin ra yaz by protein electrophoresisOrdered By: Dr. Stephenson on 03-15-2023 Albumin/Globulin Elph [Mass ratio] 0.9 0.7-1.7 [facility] Serum globulin measurement ( mass/volume)Ordered By: Dr. Stephenson on 03-15-2023 Globulin (S) [Mass/Vol] 4.1 g/dL 2.2-3.[address] [facility] Serum or plasma albumin stevan urement (mass/volume)Ordered By: Dr. Stephenson on 03-15-2023 Albumin [Mass/Vol] 3.6 g/dL 2.9-4.4 [facility] Serum or plasma albumin/glob ulin mass ratioOrdered By: Dr. Stephenson on 03-15-2023 Albumin/Globulin [Mass ratio] 0.8 {ratio} 0.9-2.4 [facility] Serum or plasma beta globuli n measurement by electrophoresis (mass/volume)Ordered By: Dr. Stephenson on 03-15-2023 Beta globulin Elph [Mass/Vol] 1.2 g/dL 0.7-1.3 [facility] Serum or plasma calcium stevan urement (mass/volume)Ordered By: Dr. Stephenson on 03-15-2023 Calcium [Mass/Vol] 9.2 mg/dL 8.5-10.1 [facility] Serum or plasma cholesterol in HDL measurement (mass/volume)Ordered By: Dr. Stephenson on 03-15-2023 Cholesterol in HDL [Mass/Vol] 49 mg/dL >40 [facility] Comment on above: The drugs N-Acetylcy steine and Metamizole may falsely depress this assay. Reference Range HDL <40 mg/dL Low HDL Cholesterol HDL >or= 60 mg/dL High HDL Cholesterol Serum or plasma cholesterol in VLDL measurement (mass/volume)Ordered By: Dr. Stephenson on 03-15-2023 Cholesterol in VLDL [Mass/Vol] 17 mg/dL 5-40 [facility] Serum or plasma creatinine m easurement (mass/volume)Ordered By: Dr. Stephenson on 03-15-2023 Creatinine [Mass/Vol] 1.17 mg/dL 0.70-1.30 [facility] Comment on above: The validity of the calculated GFR & GFRAA in patients over 70 years has not been determined. Clinical correlation is essential. Serum or plasma low density lipoprotein (LDL) cholesterol measurement (mass/volume)Ordered By: Dr. Stephenson on 03-15-2023 Cholesterol in LDL [Mass/Vol] 59 mg/dL 0-130 [facility] Serum or plasma urea nitroge n measurement (mass/volume)Ordered By: Dr. Stephenson on 03-15-2023 Urea nitrogen [Mass/Vol] 20 mg/dL 7-18 [facility] Thin prep Papanicolaou smear with manual screeningOrdered By: Dr. Stephenson on 03-15-2023 Thin prep Papanicolaou smear with manual screening 23 U/L 15-37 [facility] Comment on above: Slight Hemolysis, Re sult may be falsely increased. Thin prep Papanicolaou smear with manual screening 6 5-15 [facility] Thin prep Papanicolaou smear with manual screening See comment [facility] Comment on above: NOT OBSERVED Total protein bloodOrdered B y: Dr. Stephenson on 03-15-2023 Protein [Mass/Vol] 7.7 g/dL 6.0-8.5 [facility] Basophil percentageon 2021 Chloride [Moles/Vol] 104 mmol/L 98-107 [facility] Work Phone: Glucose [Mass/Vol] 127 mg/dL 74-106 [facility] Work Phone: Comment on above: Fasting Glucose resu lt greater than or equal to 126 mg/dL suggests DIABETES MELLITUS per A.D.A. criteria. Potassium [Moles/Vol] 4.0 mmol/L 3.5-5.1 [facility] Work Phone: Sodium [Moles/Vol] 136 mmol/L 136-145 [facility] Work Phone: Laboratory - Chemistry and C hemistry - challengeon 01-27-2022 CO2 [Moles/Vol] 22.0 mmol/L 21.0-32.0 [facility] Work Phone: Urea nitrogen/Creatinine [Mass ratio] 14.2 mg/mg 10-20 [facility] Work Phone: No Panel Informationon 01-27 Estimated GFR (MDRD) Amer 71 mL/min >60 [facility] Work Phone: Comment on above: GFR Calc Estimated GFR (MDRD) Non-Af Amer 58 mL/min >60 [facility] Work Phone: Comment on above: Non- GFR Calc Serum or plasma calcium stevan urement (mass/volume)on 01-27-2022 Calcium [Mass/Vol] 8.7 mg/dL 8.5-10.1 [facility] Work Phone: Serum or plasma creatinine m easurement (mass/volume)on 01-27-2022 Creatinine [Mass/Vol] 1.27 mg/dL 0.70-1.30 [facility] Work Phone: Comment on above: The validity of the calculated GFR & GFRAA in patients over 70 years has not been determined. Clinical correlation is essential. Serum or plasma urea nitroge n measurement (mass/volume)on 01-27-2022 Urea nitrogen [Mass/Vol] 18 mg/dL 7-18 [facility] Work Phone: Thin prep Papanicolaou smear with manual screeningon 01-27-2022 Thin prep Papanicolaou smear with manual screening 10 5-15 [facility] Work Phone: Basophil percentageon 2021 Cholesterol [Mass/Vol] 135 mg/dL <200 [facility] Work Phone: Comment on above: <200 mg/dL Desirable 200-240 mg/dL Borderline >240 mg/dL High Risk Triglyceride [Mass/Vol] 105 mg/dL [facility] Work Phone: Comment on above: The drugs N-Acetylcy steine and Metamizole may falsely depress this assay.Serum Triglycerides Reference Interval Normal <150 mg/dL Borderline high 150 - 199 mg/dL High 200 - 499 mg/dL Very High > or = 500 mg/dL Laboratory - Hematology and Cell countson 11-04-2021 HbA1c (Bld) [Mass fraction] 7.9 % [facility] Work Phone: Serum or plasma cholesterol in HDL measurement (mass/volume)on 11-04-2021 Cholesterol in HDL [Mass/Vol] 46 mg/dL [facility] Work Phone: Comment on above: The drugs N-Acetylcy steine and Metamizole may falsely depress this assay. Reference Range HDL <40 mg/dL Low HDL Cholesterol HDL >or= 60 mg/dL High HDL Cholesterol Serum or plasma cholesterol in VLDL measurement (mass/volume)on 11-04-2021 Cholesterol in VLDL [Mass/Vol] 21 mg/dL 5-40 [facility] Work Phone: Serum or plasma low density lipoprotein (LDL) cholesterol measurement (mass/volume)on 11-04-2021 Cholesterol in LDL [Mass/Vol] 68 mg/dL 0-130 [facility] Work Phone: C-Reactive Proteinon 018 CRP mass conc 0.3 mg/dL Normal <0.9 [facility] Comment on above: Performed By: #### C BC, C3COMP, C4COMP, CRET1, CRP, HFP, WSR, DNA ####[place] [address] [place], [place] [phone] C3 Complementon 06-12-2018 C3 Complement 107 mg/dL Normal 86-166 [facility] Comment on above: Performed By: #### C BC, C3COMP, C4COMP, CRET1, CRP, HFP, WSR, DNA ####[place] [address] [place], [place] [phone] C4 Complementon 06-12-2018 C4 Complement 23 mg/dL Normal 13-46 [facility] Comment on above: Performed By: #### C BC, C3COMP, C4COMP, CRET1, CRP, HFP, WSR, DNA ####[address] [phone] CBCon 06-12-2018 Absolute nRBC <0.01 Normal <0.01 [facility] Comment on above: Performed By: #### C BC, C3COMP, C4COMP, CRET1, CRP, HFP, WSR, DNA ####[place] [address] [address], [place] [phone] Erythrocyte distribution width Auto Ratio (RBC) 13.0 % Normal 11.5-15.0 [facility] Comment on above: Performed By: #### C BC, C3COMP, C4COMP, CRET1, CRP, HFP, WSR, DNA ####[place] [address] [address] [place] [phone] Hematocrit Auto Volume Fraction (Bld) 45.0 % Normal 39.0-51.0 [facility] Comment on above: Performed By: #### C BC, C3COMP, C4COMP, CRET1, CRP, HFP, WSR, DNA ####[place] [address] [address] [place] [phone] Hemoglobin mass conc (Bld) 14.5 g/dL Normal 13.0-17.0 [facility] Comment on above: Performed By: #### C BC, C3COMP, C4COMP, CRET1, CRP, HFP, WSR, DNA ####[address] [phone] MCH Auto Entitic mass (RBC) 33.4 pG Normal 26.0-34.0 [facility] Comment on above: Performed By: #### C BC, C3COMP, C4COMP, CRET1, CRP, HFP, WSR, DNA ####[place] [address] [address] [place] [phone] MCHC Auto mass conc (RBC) 32.2 g/dL Normal 30.5-36.0 [facility] Comment on above: Performed By: #### C BC, C3COMP, C4COMP, CRET1, CRP, HFP, WSR, DNA ####[place] [address] [address] [place] [phone] MCV Auto Entitic volume (RBC) 103.7 fL High 80.0-100.0 [facility] Comment on above: Performed By: #### C BC, C3COMP, C4COMP, CRET1, CRP, HFP, WSR, DNA ####[place] [address] [address] [phone] Platelet mean volume Auto Entitic volume (Bld) 11.7 fL Normal 9.0-12.7 [facility] Comment on above: Performed By: #### C BC, C3COMP, C4COMP, CRET1, CRP, HFP, WSR, DNA ####[place] [address] [address] Ave[address], [place] [phone] Platelets Auto #/vol (Bld) 208 10*3/uL Normal 150-400 [facility] Comment on above: Performed By: #### C BC, C3COMP, C4COMP, CRET1, CRP, HFP, WSR, DNA ####[place] [address] [address], [place] [phone] RBC Auto #/vol (Bld) 4.34 10*6/uL Normal 4.20-6.00 [facility] Comment on above: Performed By: #### C BC, C3COMP, C4COMP, CRET1, CRP, HFP, WSR, DNA ####[address] [phone] WBC Auto #/vol (Bld) 10.23 10*3/uL Normal 3.70-11.00 [facility] Comment on above: Performed By: #### C BC, C3COMP, C4COMP, CRET1, CRP, HFP, WSR, DNA ####[address] [phone] Creatinineon 06-12-2018 Creatinine mass conc 1.14 mg/dL Normal 0.73-1.22 [facility] Comment on above: Performed By: #### C BC, C3COMP, C4COMP, CRET1, CRP, HFP, WSR, DNA ####[place] [address] [address], [place] [phone] eGFR- Amer. >60 Normal [facility] Comment on above: Performed By: #### C BC, C3COMP, C4COMP, CRET1, CRP, HFP, WSR, DNA ####[address] [place], [place] [phone] GFR/1.73 sq M predicted among non-blacks MDRD vol rate/area (S/P/Bld) mL/min/{1.73_m2} Normal [facility] Comment on above: Result Comment: eGFR (Estimated GFR) Units of measure: mL/min/1.73 meters squaredeGFR is derived from the reexpressed MDRD Study equation using the following parameters: serum creatinine, age, gender and race. The creatinine assay has been calibrated to be traceable to IDMS.An eGFR <60 mL/min/1.73m2 for >3 months is consistent with chronic kidney disease. Refer to KDOQI guidelines for clinical interpretation.In patients with unstable renal function, e.g. those with acute kidney injury, the eGFR may not accurately reflect actual GFR. Performed By: #### C BC, C3COMP, C4COMP, CRET1, CRP, HFP, WSR, DNA ####[facility] [place], [place] [phone] DNA Antibody w/ Conf.on 05-27 DNA Antibody w/ Conf. 13 IU/mL Normal <30 [facility] Comment on above: Result Comment: Nega tive for ds DNA AntibodiesNegative: <30 IU/mLEquivocal: 30-74 IU/mLPositive: >74 IU/mL Performed By: #### C BC, C3COMP, C4COMP, CRET1, CRP, HFP, WSR, DNA ####[facility] [place], [place] [phone] Hepatic Functn Panelon 06-12 Albumin mass conc 4.0 g/dL Normal 3.9-4.9 [facility] Comment on above: Performed By: #### C BC, C3COMP, C4COMP, CRET1, CRP, HFP, WSR, DNA ####[place] [address] [place], [place] [phone] ALP enzyme act/vol 84 U/L Normal 36-108 [facility] Comment on above: Performed By: #### C BC, C3COMP, C4COMP, CRET1, CRP, HFP, WSR, DNA ####[place] [address] [address], [place] [phone] ALT enzyme act/vol 21 U/L Normal 10-54 [facility] Comment on above: Performed By: #### C BC, C3COMP, C4COMP, CRET1, CRP, HFP, WSR, DNA ####[place] [address] [address], [place] [phone] AST enzyme act/vol 27 U/L Normal 14-40 [facility] Comment on above: Performed By: #### C BC, C3COMP, C4COMP, CRET1, CRP, HFP, WSR, DNA ####[place] [address] [address], [place] [phone] Bilirubin mass conc 0.7 mg/dL Normal 0.2-1.3 [facility] Comment on above: Performed By: #### C BC, C3COMP, C4COMP, CRET1, CRP, HFP, WSR, DNA ####[address] [place], [place] [phone] Bilirubin,Conjugated <0.2 Normal <0.2 [facility] Comment on above: Performed By: #### C BC, C3COMP, C4COMP, CRET1, CRP, HFP, WSR, DNA ####[address] [place], [place] [phone] Protein mass conc 6.9 g/dL Normal 6.3-8.0 [facility] Comment on above: Performed By: #### C BC, C3COMP, C4COMP, CRET1, CRP, HFP, WSR, DNA ####[address], [place] [phone] Protein/Creatinine Ratioon 0 - Creatinine,Urine,Ran 230.1 mg/dL Normal 20-300 [facility] Comment on above: Performed By: #### P RATIO ####[place] [address] [address], [place] [phone] Protein Urine Random 19 mg/dL Normal 0-20 [facility] Comment on above: Performed By: #### P RATIO ####[place] [address] [address] [place] [phone] Protein/Creatinine Ratio 0.1 Normal <0.2 [facility] Comment on above: Performed By: #### P RATIO ####[place] [address] [address] [place] [phone] Sed Rate Westergrenon 2017 Sed Rate Westergren 12 mm/hr Normal 0-15 [facility] Comment on above: Performed By: #### C BC, C3COMP, C4COMP, CRET1, CRP, HFP, WSR, DNA ####[place] [address] [address] [place] [phone] Urinalysison 06-12-2018 Bilirubin, Urine Negative Normal Negative [facility] Comment on above: Performed By: #### U A ####[place] [address] [place] [phone] Cast SEE COMMENT Critically abnormal 0 [facility] Comment on above: Result Comment: >10H yaline Cast Performed By: #### U A ####[place] [address] [address] [place] [phone] Clarity Cloudy Critically abnormal Clear [facility] Comment on above: Performed By: #### U A ####[place] [address] [address] [place] [phone] Color Yellow Normal Yellow [facility] Comment on above: Performed By: #### U A ####[place] [address] [address], [place] [phone] Comments SEE COMMENT Normal [facility] Comment on above: Result Comment: Micr oscopic Examination Performed Performed By: #### U A ####[place] [address] [place], [place] [phone] Glucose Ql (U) Negative Normal Negative [facility] Comment on above: Performed By: #### U A ####[place] [phone] Hemoglobin/Blood,Ur 2+ Critically abnormal Negative [facility] Comment on above: Performed By: #### U A ####[place] [address] [address] [place] [phone] INR Coag RelTime (Bld) 3-5 Criticall y abnormal 0-3 [facility] Comment on above: Performed By: #### U A ####[place] [phone] Ketones Ql (U) Negative Normal Negative [facility] Comment on above: Performed By: #### U A ####[place] [address] [address] [place] [phone] Leukest Negative Normal Negative [facility] Comment on above: Performed By: #### U A ####[place] [phone] Nitrites Negative Normal Negative [facility] Comment on above: Performed By: #### U A ####[place] [phone] pH 5.0 Normal 4.5-8.0 [facility] Comment on above: Performed By: #### U A ####[address] [phone] Protein, Urine 30 mg/dL Critically abnormal Negative [facility] Comment on above: Performed By: #### U A ####[place] [phone] Specific [place], Ur 1.017 Normal 1.005-1.030 [facility] Comment on above: Performed By: #### U A ####[facility] [address], [place] [phone] Urine Mango Comment SEE COMMENT Normal [facility] Comment on above: Result Comment: N/A Performed By: #### U A ####[facility], [place] [phone] Urobilinogen Normal Normal Normal [facility] Comment on above: Performed By: #### U A ####[facility] [address], [place] [phone] WBC 0-5 Normal 0-5 [facility] Comment on above: Performed By: #### U A ####[facility], [place] [phone] CNOVon 06-09-2018 CNOV Office Visit (RHEUST) BENEDICTJose Orr ([id number]) 1945 MDate Time Provider Department06/09/18 12:40 PM VANESSA PITTS) RHETL During your visit today, we recorded the following information about you: Temperature Pulse Blood pressure Weight 98.1 degrees 68/minute 131/64 83.9 kg Height 1.803 Champ Pitts MD 06/09/2018 12:46 PM SignedOn 06/09/2018, I had the pleasure of seeing Derrick Mcmullen at the [facility] for follow-up of 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 Haddad with reportsof joint pain x5 months. Had been on hydralazine x4.5 yrs. Labs with +JOANN 1:640and +histone 7.3. 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 Joint pain treated with prednisone.- Since, has had hematuria and +ANCA serologies. Evaluation by urology andrenal unremarkable.- In Jul at last rheumatology visit, reported no joint pain. No medicationchanges made- In Aug, saw renal. Given persistent hematuria, it was advised renal fcnand urine studies be closely monitored to consider renal biopsy accordingly.Given stable Aug and Sep labs, renal biopsy not to be pursued at thistime- In November, reported no joint pain. Last steroid use reported to be .- In March, no changes made. No active urine sediment per renal visit- In Aug, reported feeling well- In March, had a brown recluse spider bite which was initially itchy butnot anymore. Still has scar (looked like target lesion but doesn't think he hada tick bite. Was at home outside in neighborhood when he noticed he had it)- In May and May, reported feeling well- Today, denies joint pain, rash, photosensitivity or mouth sores. Withconstant eye floaters, seen by local eye doctor.PAST MEDICAL HISTORYDiagnosis Date- Arthropathy, unspecified, site unspecified arthritis- Atrial septal defect- Diverticulitis- Elevated sedimentation rate- Epistaxis- Essential hypertension, benign- First degree atrioventricular block- Mixed hyperlipidemia- Other malaise and fatigue- Other second degree atrioventricular block- Pain in limb hand pain- Palpitations- Undiagnosed cardiac murmursPAST SURGICAL HISTORYProcedure Laterality Date- BRONCHOSCOPY Early - CHOLECYSTECTOMY- COLONOSCOPY date unknown- INSERTION-HEART PACEMAKER 02/03/09Review of patient's allergies indicates:Hydralazine Other: See Comments Comment:drug induced lupusKeflex (Cephalexin) RashLatex Other: See Comments Comment:Pain AND swelling in handsMEDICATIONS:Current Outpatient Prescriptions:metoprolol succinate XL, long acting, (TOPROL XL) 25 mg 24 hr tablet Take 25 mgby mouth once daily.cloNIDine 0.1 mg tablet Take 1 tablet by mouth once daily.atorvastatin (LIPITOR) 10 mg tablet Take 1 tablet by mouth once daily.Hydrochlorothiazid e 12.5 mg capsule Take 1 capsule by mouth once daily.potassium chloride SR 20 mEq tablet Take 1 tablet by mouth once daily.No current facility-administered medications for this visit.FAMILY HISTORYProblem Relation Age of Onset- Breast Cancer Sister- Hypertension Brother- Coronary Artery Disease Mother- Heart Brother heart disease- Stroke Mother- other (MS [Other]) SisterSOCIAL HISTORY:[place]ives in [place] with . 2 daughters (1 in [place] and 1 in [place]), 1granddaughter (17 yo started at [employer] in May, wants to be a nurse)-OHTobacco Use: 1 pack/day, for 15 years. Quit 06/25/1983. Types: CigarettesAlcohol Use: Not on fileREVIEW OF SYSTEMS: Reviewed 07/09 systems, as abovePHYSICAL EXAM:VITALS: Blood pressure 131/64, pulse 68, temperature 36.7 ?C (98.1 ?F),temperature source Oral, height 180.3 cm (5' 11), weight 83.9 kg (185 lb).CONSTITUTIONAL: Well-appearing, in NAD.SKIN: No rash. No sclerodactyly, calcinosis, telangiectasias, digitial ulcers,or skin thickening.EYES: No scleral icterus or conjunctivitis, PERRLA.ENT and Mouth: External ears normal. Nares normal. Mucous membranes normal.Oropharynx normal. No oral ulcers.NECK: No lymphadenopathyRESPIRATO RY: Normal breath sounds, clear to auscultation.CARDIOVASCU LAR: Regular rate and rhythm, systolic murmur throughoutGASTROENTEROLO GY: Normal bowel sounds. Abdomen is soft and non-tender.EXTREMITIES/L YMPH: No edema bilaterallyNEURO: Awake, alert and oriented, normal gaitMUSCULOSKELETAL:JOIN T APPEARANCE: No erythema or warmth of any upper or lower extremity joint.RANGE OF MOTION: Able to fully close fists and curl fingers bilaterally.SWOLLEN JOINTS/SYNOVITIS: No synovitis of any joint.TENDER JOINTS: NoneLABORATORY:Component Latest Ref Rng AND Units 03/23/2017 04/06/2017Protein, Total 6.3 - 8.0 g/dL 7.5Albumin 3.9 - 4.9 g/dL 4.2 4.2Calcium 8.5 - 10.2 mg/dL 9.5 9.5Bilirubin, Total 0.2 - 1.3 mg/dL 0.8Alkaline Phosphatase 36 - 108 U/L 77AST 14 - 40 U/L 27Glucose 74 - 99 mg/dL 131 (H) 111 (H)BUN 9 - 24 mg/dL 11 14Creatinine 0.73 - 1.22 mg/dL 1.10 1.22Sodium 136 - 144 mmol/L 141 139Potassium 3.7 - 5.1 mmol/L 4.2 4.3Chloride 97 - 105 mmol/L 102 99CO2 22 - 30 mmol/L 27 25Anion Gap 9 - 18 mmol/L 12 15ALT 10 - 54 U/L 25eGFR- >60 >60eGFR-All Other Races . >60 58Phosphorus 2.7 - 4.8 mg/dL 2.8c-ANCA Fluorescence Negative Negativep-ANCA Fluorescence Negative Positive (A)Proteinase-3 Antibody <1.0 AI <0.2Myeloperoxidase Antibody (MPO) <1.0 AI 2.4 (H)Interpretation (ANCA) Positive P ANCA by indirect immunofluorescence.Confi rmed by enzyme immunoassay.Staff Review (ANCA) Reviewed by Neena Jeff MD ([id number])JOANN by EIA, Qual Negative NegativeANA by EIA OD Ratio 0.7WSR 0 - 15 mm/hr 9CRP <0.9 mg/dL 0.4DNA Antibody w/Confirmation <30 IU/mL 14C3 86 - 166 mg/dL 103C4 13 - 46 mg/dL 21CANCA (PR3) Reflex Billed for services performedPANCA (MPO) Reflex Billed for services performedComponent Latest Ref Rng 04/05/2014 08/15/2014c-ANCA Fluorescence NEGAT Negative Negativep-ANCA Fluorescence NEGAT Positive (A) Positive (A)Proteinase-3 Antibody <1.0 AI <0.2 <0.2Myeloperoxidase Antibody (MPO) <1.0 AI 1.6 (H) 1.8 (H)Interpretation (ANCA) Positive P ANCA by indirect immunofluorescence.Confi rmed by enzyme . . . Positive P ANCA by indirect immunofluorescence.Confi rmed by enzyme . . .Staff Review (ANCA) Reviewed by Neena Jeff MD ([id number]) Reviewed by MD Elicia ([id number])Component Latest Ref Rng AND Units 07/11/2013Histone Ab, IgG <1.0 Units 7.3 (H)Component Latest Ref Rng AND Units 06/25/2013 07/11/2013Sm Antibody <1.0 AI <0.2RNP Antibody <1.0 AI 0.8SSA Antibody <1.0 AI <0.2SSB Antibody <1.0 AI <0.2Centromere Ab <1.0 AI <0.2Scleroderma Ab, IgG <1.0 AI <0.2Jo 1 Antibody <1.0 AI <0.2Ribosomal NON CLINICAL ADVISOR <1.0 AI 0.2Chromatin Antibody <1.0 AI 1.6 (H)JOANN NEGAT Positive (A)JOANN Titer NEGAT > 1:640 (A)JOANN Pattern HomogeneousSTUDIES:*Jun xray hands- unremarkableIMPRESSION and PLAN:1. 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 Remains asymptomatic.Also with +P-ANCA/MPO.- Continue monitoring off hydralazine- Check labs today. Mail results.2. Microscopic hematuria: Unremarkable renal/urology evaluation thus far. Nodysmorphic RBCs per renal review. Renal more inclined to perform kidney biopsyif worsened renal fcn, presence of dysmorphic RBCs and/or significant worseningin serologies. These parameters have remained stable- Continue nephrology follow-up, reminded to schedule next apt as last apt wasin February with recs to return in 6 months. Verbal and written remindersprovided.3. General health maintenance:- Advised to continue follow-up with PCP for routine health maintenance andmalignancy screeningFollow-up in 1 year. Patient was instructed to call if any questions orconcerns.Thank you for allowing me to participate in the care of your patient.Mitchel Mujica MD 06/09/2018 12:42 PM SignedPlease schedule follow-up to see Dr. Ashley in nephrology ASAPReferring Provider: ROSIE STEPHENSON [[id number]]Allergies As of Date: 06/09/2018 Noted Allergy ReactionHYDRALAZINE 03/22/2014 14 - Other: See Comments Comments: drug induced lupusKEFLEX (CEPHALEXIN) 06/19/2013 2 - RashLATEX 06/25/2013 14 - Other: See Comments Comments: Pain AND swelling in handsDate Reviewed: 06/09/2018Reviewed by: Elaine Fontana Ma - Fully AssessedReason for Visit: Established Patient [175]Primary Visit Diagnosis:Drug-induced systemic lupus erythematosus, unspecified organ involvement status (HCC) [M32.0] Other Visit Diagnosis:Hematuria, unspecified type [R31.9]Order(s):HEPATIC FUNCTION PNL [SQHFP] Order #: [id number] FUTURE CBC [SQCBC] Order #: [id number] FUTURE CREATININE BLD [SQCRET] Order #: [id number] FUTURE C-REACTIVE PROTEIN (CRP) [SQCRP] Order #: [id number] FUTURE SED RATE WESTERGREN [SQWSR] Order #: [id number] FUTURE PROTEIN CREATININE RATIO [SQPRATIO] Order #: [id number] FUTURE UA CHEMSTRIP ONLY [SQUA] Order #: [id number] FUTURE C4 COMPLEMENT BLD [VQJ0UHSA] Order #: [id number] FUTURE C3 COMPLEMENT BLD [[id number]] Order #: [id number] FUTURE DNA AB DS + CONF BLD [SQDNA] Order #: [id number] FUTUREPrescriptions as of 06/09/2018 Sig: METOPROLOL SUCCINATE ER 25 MG* Take 25 mg by mouth once tyrel* CLONIDINE HCL 0.1 MG TABLET Take 1 tablet by mouth once d* ATORVASTATIN 10 MG TABLET Take 1 tablet by mouth once d* HYDROCHLOROTHIAZIDE 12.5 MG C* Take 1 capsule by mouth once * POTASSIUM CHLORIDE ER 20 MEQ * Take 1 tablet by mouth once d*Problem List As Of Date 06/09/2018 Noted Resolved Anemia [D64.9] INVALID FOR* Abnormal immunological finding in serum [R76.9] INVALID FOR* Drug-induced systemic lupus erythematosus (HCC)*INVALID FOR* Other instructions from your clinician: Please schedule follow-up to see Dr. Ashley in nephrology ASAPDisposition: Return in about 1 year (around 06/09/2019).Follow-up and Disposition History RecordedLetter Judit Mcmullen Pitts M.D.Department of Rheumatic and Immunologic DiseaseSHCA Florida Lake Monroe HospitalC[address] [place], [place] [address]Cdsstwvqkppj: [phone]: [phone]: Jtzcpks Nathalie [place], [address] [place] [address]Eufsk: [phone]: [phone] 14, 2018RE: Derrick Mcmullen [id number] [place] [address] Dr. Salgado was a pleasure to see your patient, Mr. Mcmullen in our Rheumatologydepartment on June 09, 2018. Enclosed please find a copy of my officevisit notes for your records.If you have any questions, please do not hesitate to contact my office.Sincerely yours,Vanessa Pitts MD(Electronically signed to expedite mailing) Status:Closed by VANESSA PITTS MD on 06/09/18 Normal [facility] PROGRESSon 06-09-2018 Protein mass conc HNO ID: [id number]: Vanessa Nevarez) TommieaiService: (none)Author Type: PhysicianType: Progress NotesFiled: 06/09/2018 12:46 PMNote Text:On 06/09/2018, I had the pleasure of seeing Derrick Mcmullen at the [facility] for follow-up of 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 Haddad withreports of joint pain x5 months. Had been on hydralazine x4.5 yrs. Labswith +JOANN 1:640 and +histone 7.3. Drug-induced lupus from hydralazinesuspected so hydralazine stopped. Joint pain treated with prednisone.- Since, has had hematuria and +ANCA serologies. Evaluation by urology andrenal unremarkable.- In Jul at last rheumatology visit, reported no joint pain. Nomedication changes made- In Aug, saw renal. Given persistent hematuria, it was advised renalfcn and urine studies be closely monitored to consider renal biopsyaccordingly. Given stable Aug and Sep labs, renal biopsy not to bepursued at this time- In November, reported no joint pain. Last steroid use reported to Cynthia.- In March, no changes made. No active urine sediment per renal visit- In Aug, reported feeling well- In March, had a brown recluse spider bite which was initially itchybut not anymore. Still has scar (looked like target lesion but doesn'tthink he had a tick bite. Was at home outside in neighborhood when henoticed he had it)- In May and May, reported feeling well- Today, denies joint pain, rash, photosensitivity or mouth sores. Withconstant eye floaters, seen by local eye doctor.PAST MEDICAL HISTORYDiagnosis Date- Arthropathy, unspecified, site unspecified arthritis- Atrial septal defect- Diverticulitis- Elevated sedimentation rate- Epistaxis- Essential hypertension, benign- First degree atrioventricular block- Mixed hyperlipidemia- Other malaise and fatigue- Other second degree atrioventricular block- Pain in limb hand pain- Palpitations- Undiagnosed cardiac murmursPAST SURGICAL HISTORYProcedure Laterality Date- BRONCHOSCOPY Early - CHOLECYSTECTOMY- COLONOSCOPY date unknown- INSERTION-HEART PACEMAKER 02/03/09Review of patient's allergies indicates:Hydralazine Other: See Comments Comment:drug induced lupusKeflex (Cephalexin) RashLatex Other: See Comments Comment:Pain AND swelling in handsMEDICATIONS:Current Outpatient Prescriptions:metoprolol succinate XL, long acting, (TOPROL XL) 25 mg 24 hr tablet Take25 mg by mouth once daily.cloNIDine 0.1 mg tablet Take 1 tablet by mouth once daily.atorvastatin (LIPITOR) 10 mg tablet Take 1 tablet by mouth once daily.Hydrochlorothiazid e 12.5 mg capsule Take 1 capsule by mouth once daily.potassium chloride SR 20 mEq tablet Take 1 tablet by mouth once daily.No current facility-administered medications for this visit.FAMILY HISTORYProblem Relation Age of Onset- Breast Cancer Sister- Hypertension Brother- Coronary Artery Disease Mother- Heart Brother heart disease- Stroke Mother- other (MS [Other]) SisterSOCIAL HISTORY:Lives in [place] with . 2 daughters (1 in [place] and 1 in [place]), 1granddaughter (17 yo started at [employer] in Sep '17, wants to be anurse)-OHTobacco Use: 1 pack/day, for 15 years. Quit 06/25/1983. Types: CigarettesAlcohol Use: Not on fileREVIEW OF SYSTEMS: Reviewed 07/09 systems, as abovePHYSICAL EXAM:VITALS: Blood pressure 131/64, pulse 68, temperature 36.7 ?C (98.1 ?F),temperature source Oral, height 180.3 cm (5' 11), weight 83.9 kg (185lb).CONSTITUTIONAL: Well-appearing, in NAD.SKIN: No rash. No sclerodactyly, calcinosis, telangiectasias, digitialulcers, or skin thickening.EYES: No scleral icterus or conjunctivitis, PERRLA.ENT and Mouth: External ears normal. Nares normal. Mucous membranesnormal. Oropharynx normal. No oral ulcers.NECK: No lymphadenopathyRESPIRATO RY: Normal breath sounds, clear to auscultation.CARDIOVASCU LAR: Regular rate and rhythm, systolic murmur throughoutGASTROENTEROLO GY: Normal bowel sounds. Abdomen is soft and non-tender.EXTREMITIES/L YMPH: No edema bilaterallyNEURO: Awake, alert and oriented, normal gaitMUSCULOSKELETAL:JOIN T APPEARANCE: No erythema or warmth of any upper or lower extremityjoint.RANGE OF MOTION: Able to fully close fists and curl fingers bilaterally.SWOLLEN JOINTS/SYNOVITIS: No synovitis of any joint.TENDER JOINTS: NoneLABORATORY:Component Latest Ref Rng AND Units 03/23/2017 04/06/2017Protein, Total 6.3 - 8.0 g/dL 7.5Albumin 3.9 - 4.9 g/dL 4.2 4.2Calcium 8.5 - 10.2 mg/dL 9.5 9.5Bilirubin, Total 0.2 - 1.3 mg/dL 0.8Alkaline Phosphatase 36 - 108 U/L 77AST 14 - 40 U/L 27Glucose 74 - 99 mg/dL 131 (H) 111 (H)BUN 9 - 24 mg/dL 11 14Creatinine 0.73 - 1.22 mg/dL 1.10 1.22Sodium 136 - 144 mmol/L 141 139Potassium 3.7 - 5.1 mmol/L 4.2 4.3Chloride 97 - 105 mmol/L 102 99CO2 22 - 30 mmol/L 27 25Anion Gap 9 - 18 mmol/L 12 15ALT 10 - 54 U/L 25eGFR- >60 >60eGFR-All Other Races . >60 58Phosphorus 2.7 - 4.8 mg/dL 2.8c-ANCA Fluorescence Negative Negativep-ANCA Fluorescence Negative Positive (A)Proteinase-3 Antibody <1.0 AI <0.2Myeloperoxidase Antibody (MPO) <1.0 AI 2.4 (H)Interpretation (ANCA) Positive P ANCA by indirect immunofluorescence.Confi rmed by enzyme immunoassay.Staff Review (ANCA) Reviewed by Neena Jeff MD ([id number])JOANN by EIA, Qual Negative NegativeANA by EIA OD Ratio 0.7WSR 0 - 15 mm/hr 9CRP <0.9 mg/dL 0.4DNA Antibody w/Confirmation <30 IU/mL 14C3 86 - 166 mg/dL 103C4 13 - 46 mg/dL 21CANCA (PR3) Reflex Billed for services performedPANCA (MPO) Reflex Billed for services performedComponent Latest Ref Rng 04/05/2014 08/15/2014c-ANCA Fluorescence NEGAT Negative Negativep-ANCA Fluorescence NEGAT Positive (A) Positive (A)Proteinase-3 Antibody <1.0 AI <0.2 <0.2Myeloperoxidase Antibody (MPO) <1.0 AI 1.6 (H) 1.8 (H)Interpretation (ANCA) Positive P ANCA by indirect immunofluorescence.Confi rmed by enzyme . . . Positive P ANCA by indirect immunofluorescence.Confi rmed by enzyme . . .Staff Review (ANCA) Reviewed by Neena Jeff MD ([id number]) Reviewed byNeena Jeff MD ([id number])Component Latest Ref Rng AND Units 07/11/2013Histone Ab, IgG <1.0 Units 7.3 (H)Component Latest Ref Rng AND Units 06/25/2013 07/11/2013Sm Antibody <1.0 AI <0.2RNP Antibody <1.0 AI 0.8SSA Antibody <1.0 AI <0.2SSB Antibody <1.0 AI <0.2Centromere Ab <1.0 AI <0.2Scleroderma Ab, IgG <1.0 AI <0.2Jo 1 Antibody <1.0 AI <0.2Ribosomal NON CLINICAL ADVISOR <1.0 AI 0.2Chromatin Antibody <1.0 AI 1.6 (H)JOANN NEGAT Positive (A)JOANN Titer NEGAT > 1:640 (A)JOANN Pattern HomogeneousSTUDIES:*Jun xray hands- unremarkableIMPRESSION and PLAN:1. 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 Remainsasymptomatic. Also with +P-ANCA/MPO.- Continue monitoring off hydralazine- Check labs today. Mail results.2. Microscopic hematuria: Unremarkable renal/urology evaluation thus far.No dysmorphic RBCs per renal review. Renal more inclined to perform kidneybiopsy if worsened renal fcn, presence of dysmorphic RBCs and/orsignificant worsening in serologies. These parameters have remained stable- Continue nephrology follow-up, reminded to schedule next apt as last aptwas in February with recs to return in 6 months. Verbal and writtenreminders provided.3. General health maintenance:- Advised to continue follow-up with PCP for routine health maintenanceand malignancy screeningFollow-up in 1 year. Patient was instructed to call if any questions orconcerns.Thank you for allowing me to participate in the care of your patient.Vanessa Pitts MD [facility] Vital Signs Date Time Vital Sign Value Performing Clinician Bindu mayen 04-09-2025 09:51-0400 Body height 182.[address] Rosie Stephenson DO Work Phone: [facility] 04-09-2025 09:51-0400 Body mass index (BMI) [Ratio] 22.5 kg/m2 Dr. Rosie Stephenson DO Work Phone: [facility] 04-09-2025 09:51-0400 Body weight 75.[address] Rosie Stephenson DO Work Phone: [facility] 04-09-2025 09:51-0400 Diastolic blood pressure 58 mm[Hg] Dr. Rosie Stephenson DO Work Phone: [facility] 04-09-2025 09:51-0400 Heart rate 60 /min Dr. Rosie Stephenson DO Work Phone: [facility] 04-09-2025 09:51-0400 Respiratory rate 16 /min Dr. Rosie Stephenson DO Work Phone: [facility] 04-09-2025 09:51-0400 Systolic blood pressure 99 mm[Hg] Dr. Rosie Stephenson DO Work Phone: [facility] 03-12-2025 09:08-0400 Body height 182.[address] Rosie Stephenson DO Work Phone: [facility] 03-12-2025 09:08-0400 Body mass index (BMI) [Ratio] 22.6 kg/m2 Dr. Rosie Stephenson DO Work Phone: [facility] 03-12-2025 09:08-0400 Body temperature 97.5 [degF] Dr. Rosie Stephenson DO Work Phone: [facility] 03-12-2025 09:08-0400 Body weight 75.[address] Rosie Stephenson DO Work Phone: [facility] 03-12-2025 09:08-0400 Diastolic blood pressure 66 mm[Hg] Dr. Rosie Stephenson DO Work Phone: [facility] 03-12-2025 09:08-0400 Heart rate 61 /min Dr. Rosie Stephenson DO Work Phone: [facility] 03-12-2025 09:08-0400 Respiratory rate 16 /min Dr. Rosie Stephenson DO Work Phone: [facility] 03-12-2025 09:08-0400 SaO2% (BldA) [Mass fraction] 99 % Dr. Rosie Stephenson DO Work Phone: [facility] 03-12-2025 09:08-0400 Systolic blood pressure 112 mm[Hg] Dr. Rosie Stephenson DO Work Phone: [facility] 08-24-2023 12:02-0500 Body height 183.[address] Rosie Stephenson Work Phone: [facility] 08-24-2023 12:02-0500 Body mass index (BMI) [Ratio] 21.4 kg/m2 Dr. Rosie Stephenson Work Phone: [facility] 08-24-2023 12:02-0500 Body weight 71.[address] Rosie Stephenson Work Phone: [facility] 08-24-2023 10:57-0500 Body temperature 97.5 [degF] Dr. Rosie Stephenson Work Phone: [facility] 08-24-2023 10:57-0500 Diastolic blood pressure 82 mm[Hg] Dr. Rosie Stephenson Work Phone: [facility] 08-24-2023 10:57-0500 Heart rate 82 /min Dr. Rosie Stephenson Work Phone: [facility] 08-24-2023 10:57-0500 Respiratory rate 18 /min Dr. Rosie Stephenson Work Phone: [facility] 08-24-2023 10:57-0500 SaO2% (BldA) [Mass fraction] 92 % Dr. Rosie Stephenson Work Phone: [facility] 08-24-2023 10:57-0500 Systolic blood pressure 136 mm[Hg] Dr. Rosie Stephenson Work Phone: [facility] 05-16-2023 11:06-0400 Body height 182.[address] Rosie Stephenson Work Phone: [facility] 05-16-2023 11:02-0400 Body mass index (BMI) [Ratio] 20.9 kg/m2 Dr. Rosie Stephenson Work Phone: [facility] 05-16-2023 11:02-0400 Body weight 70.[address] Rosie Stephenson Work Phone: [facility] 05-16-2023 11:02-0400 Diastolic blood pressure 59 mm[Hg] Dr. Rosie Stephenson Work Phone: [facility] 05-16-2023 11:02-0400 Heart rate 61 /min Dr. Rosie Stephenson Work Phone: [facility] 05-16-2023 11:02-0400 Respiratory rate 18 /min Dr. Rosie Stephenson Work Phone: [facility] 05-16-2023 11:02-0400 SaO2% (BldA) [Mass fraction] 100 % Dr. Rosie Stephenson Work Phone: [facility] 05-16-2023 11:02-0400 Systolic blood pressure 109 mm[Hg] Dr. Rosie Stephenson Work Phone: [facility] 03-15-2023 09:17-0400 Body temperature 97.4 [degF] Dr. Rosie Stephenson Work Phone: [facility] 03-15-2023 09:17-0400 Body weight 72.[address] Rosie Stephenson Work Phone: [facility] 03-15-2023 09:17-0400 Diastolic blood pressure 70 mm[Hg] Dr. Rosie Stephenson Work Phone: [facility] 03-15-2023 09:17-0400 Heart rate 60 /min Dr. Rosie Stephenson Work Phone: [facility] 03-15-2023 09:17-0400 Respiratory rate 16 /min Dr. Rosie Stephenson Work Phone: [facility] 03-15-2023 09:17-0400 SaO2% (BldA) [Mass fraction] 99 % Dr. Rosie Stephenson Work Phone: [facility] 03-15-2023 09:17-0400 Systolic blood pressure 116 mm[Hg] Dr. Rosie Stephenson Work Phone: [facility] 01-27-2022 10:00-0400 Body height 182.[address] Rosie Stephenson Work Phone: [facility] Work Phone: 01-27-2022 10:00-0400 Body mass index (BMI) [Ratio] 22.4 kg/m2 Dr. Rosie Stephenson Work Phone: [facility] Work Phone: 01-27-2022 10:00-0400 Body temperature 96.9 [degF] Dr. Rosie Stephenson Work Phone: [facility] Work Phone: 01-27-2022 10:00-0400 Body weight 75.[address] Rosie Stephenson Work Phone: [facility] Work Phone: 01-27-2022 10:00-0400 Diastolic blood pressure 66 mm[Hg] Dr. Rosie Stephenson Work Phone: [facility] Work Phone: 01-27-2022 10:00-0400 Heart rate 60 /min Dr. Rosie Stephenson Work Phone: [facility] Work Phone: 01-27-2022 10:00-0400 Respiratory rate 16 /min Dr. Rosie Stephenson Work Phone: [facility] Work Phone: 01-27-2022 10:00-0400 SaO2% (BldA) [Mass fraction] 99 % Dr. Rosie Stephenson Work Phone: [facility] Work Phone: 01-27-2022 10:00-0400 Systolic blood pressure 120 mm[Hg] Dr. Rosie Stephenson Work Phone: [facility] Work Phone: 11-04-2021 07:31-0500 Body temperature 97.8 [degF] Dr. Rosie Stephenson Work Phone: [facility] Work Phone: 11-04-2021 07:31-0500 Body weight 77.[address] Rosie Stephenson Work Phone: [facility] Work Phone: 11-04-2021 07:31-0500 Diastolic blood pressure 70 mm[Hg] Dr. Rosie Stephenson Work Phone: [facility] Work Phone: 11-04-2021 07:31-0500 Heart rate 60 /min Dr. Rosie Stephenson Work Phone: [facility] Work Phone: 11-04-2021 07:31-0500 Respiratory rate 14 /min Dr. Rosie Stephenson Work Phone: [facility] Work Phone: 11-04-2021 07:31-0500 SaO2% (BldA) [Mass fraction] 99 % Dr. Rosie Stephenson Work Phone: [facility] Work Phone: 11-04-2021 07:31-0500 Systolic blood pressure 112 mm[Hg] Dr. Rosie Stephenson Work Phone: [facility] Work Phone: 05-13-2021 08:32-0400 Body mass index (BMI) [Ratio] 23.4 kg/m2 Dr. Rosie Stephenson Work Phone: [facility] Work Phone: Encounters Encounter Date Encounter Type Care Provider Facility Start: 07-10-2025 End: 07-10-2025 Patient encounter procedure BIM NURSE -[facility] Work Phone: Start: 07-10-2025 End: 07-10-2025 ambulatory BIM NURSE Facility:[facility] Start: 06-19-2025 End: 06-19-[address] Rosie Stephenson DO Work Phone: -[facility] Start: 06-19-2025 End: 06-19-[address] Yohannes Lux MD -[facility] Work Phone: Start: 06-17-2025 End: 06-17-2025 Patient encounter procedure Julee Delaney -[facility] Work Phone: Start: 06-17-2025 End: 06-17-[address] Rosie Stephenson DO Work Phone: -[facility] Start: 06-10-2025 End: 06-10-[address] Rosie Stephenson DO Work Phone: -[facility] Start: 06-10-2025 End: 06-10-[address] Yohannes Lux MD -[facility] Work Phone: Start: 04-09-2025 End: 04-09-[address] Yohannes Lux MD -[facility] Work Phone: Start: 04-09-2025 End: 04-09-[address] Rosie Stephenson DO Work Phone: -[facility] Start: 03-12-2025 End: 03-12-[address] Rosie Zelaya DO -[facility] Work Phone: Start: 03-12-2025 End: 03-12-[address] Rosie Stephenson DO Work Phone: [facility] Work Phone: Start: 03-12-2025 End: 03-12-2025 ambulatory Rosei Stephenson Facility:[facility] Start: 03-11-2025 End: 03-11-[address] Rosie Stephenson DO Work Phone: -[facility] Start: 03-11-2025 End: 03-11-[address] Yohannes Lux MD [facility] Work Phone: Start: 02-01-2025 End: 02-01-2025 Patient encounter procedure Jojo DHALIWAL -[facility] Work Phone: Start: 02-01-2025 End: 02-01-2025 ambulatory Rosie Stephenson Facility:[facility] Start: 12-10-2024 End: 12-10-2024 ambulatory Rosie Stephenson Facility:[facility] Start: 12-10-2024 End: 12-10-[address] Yohannes Lux MD -[facility] Work Phone: Start: 09-11-2024 End: 09-11-2024 ambulatory Rosie Stephenson Facility:[facility] Start: 09-10-2024 End: 09-10-2024 ambulatory Rosie Stephenson Facility:[facility] Start: 08-24-2023 Admission to [facility] Dr[facility] Rosie Stephenson Work Phone: [facility] [facility] Work Phone: Start: 08-24-[address] Rosie Stephenson Work Phone: [facility] Work Phone: Start: 07-12-2023 End: 07-12-[address] Rosie Stephenson Work Phone: [facility] Work Phone: Start: 06-06-2023 Non-patient / Non-visit Dr. Rosie Stephenson Work Phone: [facility] Start: 06-06-2023 End: 06-06-[address] Rosie Stephenson Work Phone: [facility] Work Phone: Start: 06-06-2023 End: 06-06-[address] [facility] Stephen[facility] Work Phone: Start: 05-16-2023 End: 05-16-[address] Rosie Stephenson Work Phone: [facility] Work Phone: Start: 03-15-2023 End: 03-15-[address] Rosie Stephenson Work Phone: [facility] Work Phone: Start: 03-15-2023 End: 03-15-[address] Rosie Stephenson Work Phone: [facility] Start: 03-02-2023 End: 03-02-[address] Rosie Stephenson Work Phone: [facility] Start: 01-27-2022 End: 01-27-[address] Rosie Stephenson Work Phone: [facility] Start: 01-08-2022 End: 01-08-[address] Rosie Stephenson Work Phone: [facility] Start: 11-04-2021 End: 11-04-[address] Rosie Stephenson Work Phone: [facility] Start: 10-06-2021 End: 10-06-[address] Rosie Stephenson Work Phone: [facility] Start: 06-12-2018 End: 06-12-2018 Patient encounter VANESSA NEVAREZ) [facility] Start: 06-09-2018 End: 06-12-2018 Patient encounter VANESSA NEVAREZ) [facility] Plan of Treatment Date Care Activity Detail Author Start: 08-24-2023 Esophagogastroduodenoscopy EGD (Not Applicable) [facility] Anion gap in Serum or Plasma [facility] BUN/Creatinine ratio [facility] Calcium [Mass/volume ] in Serum or Plasma [facility] Carbon dioxide, tota l [Moles/volume] in Central venous blood [facility] Creatinine [Mass/vol ume] in Serum or Plasma [facility] Glucose [Mass/volume ] in Serum or Plasma [facility] Measurement of renal function [facility] Patient referral [facility] Work Phone: Potassium measurement [facility] Serum chloride measurement [facility] Sodium measurement [facility] Urea nitrogen [Mass/ volume] in Serum or Plasma [facility] Immunizations Immunization Date Immunization Notes Care Provider Fa cility 07-10-2025 Seasonal trivalent influenza vaccine, adjuvanted, preservative free Dr. Rosie Stephenson DO Work Phone: [facility] 07-10-2024 Seasonal trivalent influenza vaccine, adjuvanted, preservative free Dr. Rosie Stephenson DO Work Phone: [facility] 07-12-2023 influenza, injectabl e, quadrivalent, preservative free Dr. Rosie Stephenson Work Phone: [facility] 07-20-2022 influenza, injectabl e, quadrivalent, preservative free Dr. Rosie Stephenson Work Phone: [facility] 07-20-2022 influenza, seasonal, injectable Dr. Rosie Stephenson Work Phone: [facility] 09-07-2021 Covid (Moderna) Dr. Rosie Stephenson Work Phone: [facility] 11-21-2020 Covid (Moderna) Dr. Rosie Stephenson Work Phone: [facility] 10-24-2020 Covid (Moderna) Dr. Rosie Stephenson Work Phone: [facility] 07-02-2020 influenza, injectabl e, quadrivalent, preservative free Dr. Rosie Stephenson Work Phone: [facility] 07-02-2020 influenza, seasonal, injectable Dr. Rosie Stephenson Work Phone: [facility] 07-02-2020 Fluad Quad (65yr up)(PF) 60 mcg (15 mcg x 4)/0.5mL IM syringe (flu vac Dr. Rosie Stephenson Work Phone: [facility] Work Phone: 07-04-2019 Fluad 2018- 65yr up(PF)45 mcg(15 mcgx3)/0.5 mL intramuscular syringe (flu vac Dr. Rosie Stephenson Work Phone: [facility] Work Phone: Payers Date Payer Category Payer Private Health Insurance 2024 Self-pay [id number] 2024 Medicare [id number] Private Health Insurance [id number] Unknown [id number] 2.16.8 [id number] Unknown [id number] 2.16.8 [id number] Unknown [id number] 2.16.8 [id number] Unknown [id number] 2.16.8 [id number] Unknown [id number] 2.16.8 [id number] Unknown [id number] 2.16.8 [id number] Unknown [id number] 2.16.8 [id number] Unknown [id number] 2.16.8 [id number] Unknown [id number] 2.16.8 [id number] Unknown [id number] 2.16.8 [id number] Unknown [id number] 2.16.8 [id number] Unknown [id number] 2.16.8 [id number] Social History Date Type Detail Facility Start: 01-27-2022 End: 08-24-2023 Tobacco smoking status NHIS Unknown if ever smoked [facility] Start: 1945 Sex Assigned At Male [facility] Start: 02-01-2025 Tobacco smoking stat us NHIS Ex-smoker (finding) [facility] Sex Male [facility] Medical Equipment Procedure Code Equipment Code Equipment Origin al Text Equipment Identifier Dates EGD, with monitored anesthesia care Ligation clip, metallic [id number] FDA Start: 08-24-2023 Mental Status Date Assessment Result Facility 08-24-2023 Cognitive function Level Of Cons ciousness Awake;Alert;Appropriate;Follow s Commands [facility] Work Phone: Procedure note 06-17-2025 Note Date & Type Note Facility 06-17-2025 Procedure note [facility] Evaluation note 04-09-2025 Note Date & Type Note Facility 04-09-2025 Evaluation note Diagnosis Onset Date Resolution Atrial septal defect chronic April 09, 2025 9:48am Essential hypertension chronic Ju ly 2024 9:48am Presence of permanent cardiac pacemaker chronic April 09 9:48am Pure hypercholesterolemia chronic April 09, 2025 9:48am Atrioventricular block, first degree chronic June 17, 2025 2:44pm Heart block AV second degree chronic June 17, 2025 2:44pm Presence of permanent cardiac pacemaker chronic May 2:44pm [facility] Work Phone: Evaluation note 03-12-2025 Note Date & Type Note Facility 03-12-2025 Evaluation note Diagnosis Onset Date Resolution CKD (chronic kidney disease) stage 3, GFR 30-59 ml/min chronic March 12, 2025 8:56am Essential hypertension chronic Ju ne 2024 8:56am Pure hypercholesterolemia chronic March 12, 2025 8:56am Swallowing difficulty chronic Stephen e 2024 8:56am Type 2 diabetes mellitus chronic March 12, 2025 8:56am Atrial septal defect chronic April 09, 2025 9:48am Essential hypertension chronic Ju ly 2024 9:48am Presence of permanent cardiac pacemaker chronic April 09 9:48am Pure hypercholesterolemia chronic April 09, 2025 9:48am [facility] Work Phone: Evaluation note 03-12-2025 Note Date & Type Note Facility 03-12-2025 Evaluation note Diagnosis Onset Date Resolution CKD (chronic kidney disease) stage 3, GFR 30-59 ml/min chronic March 12, 2025 8:56am Essential hypertension chronic Ju ne 2024 8:56am Pure hypercholesterolemia chronic March 12, 2025 8:56am Swallowing difficulty chronic Feb 8:56am Type 2 diabetes mellitus chronic March 12, 2025 8:56am Atrial septal defect chronic April 09, 2025 9:48am Essential hypertension chronic Ju ly 2024 9:48am Presence of permanent cardiac pacemaker chronic April 09 9:48am Pure hypercholesterolemia chronic April 09, 2025 9:48am Atrioventricular block, first degree chronic June 17, 2025 2:44pm Heart block AV second degree chronic June 17, 2025 2:44pm Presence of permanent cardiac pacemaker chronic May 2:44pm [facility] Work Phone: Evaluation note 02-01-2025 Note Date & Type Note Facility 02-01-2025 Evaluation note Diagnosis Onset Date Resolution GERD (gastroesophageal reflux disease) chronic February 01, 2025 8:49am Swallowing difficulty chronic February 01, 2025 8:49am CKD (chronic kidney disease) stage 3, GFR 30-59 ml/min chronic March 12, 2025 8:56am Essential hypertension chronic Ju 2024 8:56am Pure hypercholesterolemia chronic March 12, 2025 8:56am Swallowing difficulty chronic Feb 8:56am Type 2 diabetes mellitus chronic March 12, 2025 8:56am [facility] Work Phone: Evaluation note Note Date & Type Note Facility Evaluation note Diagnosis Onset Date Atrioventricular block, first degree chronic 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 Essential hypertension chron ic Presence of permanent cardiac pacemaker chronic Pure hypercholesterolemia ch ronic Type 2 diabetes mellitus chr onic Atrioventricular block, first degree chronic 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 Hypokalemia acute Presbycusis of both ears acu te CKD (chronic kidney disease) stage 3, GFR 30-59 ml/min chronic Essential hypertension chron ic Type 2 diabetes mellitus chr onic [facility] Work Phone: Evaluation note Note Date & Type Note Facility Evaluation note Diagnosis Onset Date 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 Swallowing difficulty acute Essential hypertension chron ic Presence of permanent cardiac pacemaker chronic Type 2 diabetes mellitus [facility] Work Phone: Evaluation note Note Date & Type Note Facility Evaluation note Diagnosis Onset Date 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 Work Phone: Evaluation note Note Date & Type Note Facility Evaluation note Diagnosis Onset Date Atrial septal defect chronic Essential hypertension chron ic Presence of permanent cardiac pacemaker chronic Pure hypercholesterolemia [facility] Distal esophageal obstructio n due to foreign body acute [facility] Work Phone: Reason for referral (narrative) Note Date & Type Note Facility Reason for referral (narrative) No reason for referral information available [facility] Work Phone: Summary Purpose Family History Relationship Condition Age at Onset Recorded Date/T drake mother Cerebrovascular accident (CVA) Unknown father Malignant neoplasm Unknown brother Coronary artery disease Unknown sister Malignant neoplasm of breast Unknown Advance Directives Advance Directive Response Recorded Date/ Time Advance Directives No September 28, 2021 12:33pm Living Will No September 28 12:33pm Power of Executive Administrative Asst No September 28 12:33pm Advance Directive Response Recorded Date/ Time Advance Directives No May 9:24am Living Will No June 09, 2022 9:24am Power of Executive Administrative Asst No May 9:24am Advance Directive Response Recorded Date/ Time Advance Directives No May 8:24am Living Will No August 24 10:56am Power of Executive Administrative Asst No August 24, 2023 10:56am Advance Directive Response Recorded Date/ Time Living Will No August 24 11:56am Do you have a Healthcare Power of Executive Administrative Asst? No August 24, 2023 11:56am Advance Directives No May 9:24am Chief Complaint and Reason for Visit Chief Complaint s/p PPM generator ch richie 6 mo fu 3 mos remote PPM f/u 3 M FU Reason for Visit Atrioventricular blo ck, first degree Heart block AV second degree Presence of permanent cardiac pacemaker Essential hypertension Presence of permanent cardiac pacemaker Pure hypercholesterolemia Type 2 diabetes mellitus Atrioventricular block, first degree Heart block AV second degree Presence of permanent cardiac pacemaker Hypokalemia Presbycusis of both ears CKD (chronic kidney disease) stage 3, GFR 30-59 ml/min Essential hypertension Type 2 diabetes mellitus Chief Complaint 3 mos remote PPM f/u 6 M FU Reason for Visit Heart block AV secon d degree Presence of permanent cardiac pacemaker Swallowing difficulty Essential hypertension Presence of permanent cardiac pacemaker Type 2 diabetes mellitus Chief Complaint 3 mos remote PPM f/u 6 M FU 6 M FU ATRIOVENTRICULAR BLOCK Reason for Visit Heart block AV secon d degree Presence of permanent cardiac pacemaker Swallowing difficulty Essential hypertension Presence of permanent cardiac pacemaker Type 2 diabetes mellitus Atrial septal defect Essential hypertension Presence of permanent cardiac pacemaker Pure hypercholesterolemia Chief Complaint 6 M FU ATRIOVENTRICULAR BLOCK FLU SHOT FOREIGN BODY Reason for Visit Atrial septal defect Essential hypertension Presence of permanent cardiac pacemaker Pure hypercholesterolemia Distal esophageal obstruction due to foreign body Chief Complaint Admit Date Pacer Check Remote December 10, 2024 1:1 0am 1 Y FU February 01, 2025 8:49am 6 M FU March 12, 2025 8:56 am Reason for Visit Admit Date GERD (gastroesophageal reflux disease) 2024 8:49am Swallowing difficulty February 01, 2025 8:49 am CKD (chronic kidney disease) stage 3, GF R 30-59 ml/min March 12, 2025 8:56am Essential hypertension March 12, 2025 8 :56am Pure hypercholesterolemia March 12 8:56am Swallowing difficulty March 12, 2025 8: 56am Type 2 diabetes mellitus March 12, 2025 8:56am Chief Complaint Admit Date Pacer Check Remote December 10, 2024 1:1 0am 1 Y FU February 01, 2025 8:49am Pacer Check Remote March 11, 2025 1:12 am 6 M FU March 12, 2025 8:56 am Chief Complaint Admit Date Pacer Check Remote December 10, 2024 1:1 0am 1 Y February 01, 2025 8:49am Pacer Check Remote March 11, 2025 1:12 am 6 M FU March 12, 2025 8:56 am 1 Y FU April 09, 2025 9:48 am Chief Complaint Admit Date Pacer Check Remote March 11, 2025 1:12 am 6 M FU March 12, 2025 8:56 am 1 Y FU April 09, 2025 9:48 am Pacer Check Remote June 10, 2025 1:10am Reason for Visit Admit Date CKD (chronic kidney disease) stage 3, GF R 30-59 ml/min March 12, 2025 8:56am Essential hypertension March 12, 2025 8 :56am Pure hypercholesterolemia March 12 8:56am Swallowing difficulty March 12, 2025 8: 56am Type 2 diabetes mellitus March 12, 2025 8:56am Atrial septal defect April 09, 2025 9:4 8am Essential hypertension April 09, 2025 9 :48am Presence of permanent cardiac pacemaker April 09, 2025 9:48am Pure hypercholesterolemia April 09 9:48am Chief Complaint Admit Date Pacer Check Remote March 11, 2025 1:12 am 6 M FU March 12, 2025 8:56 am 1 Y FU April 09, 2025 9:48 am Pacer Check Remote June 10, 2025 1:10am Pacer update w/ Downstream Septem 2024 2:44pm Reason for Visit Admit Date CKD (chronic kidney disease) stage 3, GF R 30-59 ml/min March 12, 2025 8:56am Essential hypertension March 12, 2025 8 :56am Pure hypercholesterolemia March 12 8:56am Swallowing difficulty March 12, 2025 8: 56am Type 2 diabetes mellitus March 12, 2025 8:56am Atrial septal defect April 09, 2025 9:4 8am Essential hypertension April 09, 2025 9 :48am Presence of permanent cardiac pacemaker April 09, 2025 9:48am Pure hypercholesterolemia April 09 9:48am Atrioventricular block, first degree Sep tember 2024 2:44pm Heart block AV second degree May [id number] 2:44pm Presence of permanent cardiac pacemaker June 17, 2025 2:44pm Chief Complaint Admit Date Pacer Check Remote Renee 16th, 2025 1:12 am 6 M FU March 12, 2025 8:56 am 1 Y FU April 09, 2025 9:48 am Pacer Check Remote June 10, 2025 1:10am Pacer update w/ [employer] Septem 2024 2:44pm Pacer Check Remote June 19, 2025 9:00am Chief Complaint Admit Date 1 Y FU April 09, 2025 9:48 am Pacer Check Remote June 10, 2025 1:10am Pacer update w/ [employer] Septem 2024 2:44pm Pacer Check Remote June 19, 2025 9:00am FLU SHOT July 10, 2025 1 :29pm Reason for Visit Admit Date Atrial septal defect April 09, 2025 9:4 8am Essential hypertension April 09, 2025 9 :48am Presence of permanent cardiac pacemaker April 09, 2025 9:48am Pure hypercholesterolemia April 09 9:48am Atrioventricular block, first degree Sep tem2024 2:44pm Heart block AV second degree May [id number] 2:44pm Presence of permanent cardiac pacemaker June 17, 2025 2:44pm Additional Source Comments (unrecognized sect ion and content) No Status Records FoundNo Status Records Found INFORMATION SOURCE (unrecogn ized section and content) DATE CREATED AUTHOR 07/09/2018 [facility] DATE CREATED AUTHOR AUTHOR'S KAI ATION 07/13/2025 [facility] Goals (unrecognized section and content) Goals may be documented in a n alternate sectionGoals may be documented in an alternate sectionGoals may be documented in an alternate sectionGoals may be documented in an alternate sectionGoals may be documented in an alternate sectionGoals may be documented in an alternate sectionGoals may be documented in an alternate sectionGoals may be documented in an alternate sectionGoals may be documented in an alternate sectionGoals may be documented in an alternate sectionGoals may be documented in an alternate sectionGoals may be documented in an alternate section Care Teams (unrecognized sec tion and content) Team Status: Active Member Role Status Dates Dr. Rosie Stephenson , DO Family Provider Active Dr. Rosie Stephenson , DO Primary Care Provider Active Team Status: Inactive Member Role Status Dates Dr. Rosie Stephenson , DO Primary Care Pr ovider, Attending Provider, Referring Provider Active Team Status: Inactive Member Role Status Dates Dr. Rosie Stephenson , DO Primary Care Provider, Referr ing Provider Active Julee Delaney Attending Provider Active Team Status: Inactive Member Role Status Dates Dr. Rosie Stephenson , DO Primary Care Provider, Referr ing Provider Active Camilla SMALLS, PA Attending Provider Active Team Status: Inactive Member Role Status Dates Dr. Rosie Stephenson DO Primary Care Provider Active Julee Delaney Active Dr. Yohannes Lux MD Attending Provider, Referring Pro vider Active Team Status: Active Member Role Status Dates Dr. Rosie Stephenson DO Primary Care Provider Active Dr. Yohannes Lux MD Attending Provider Active Team Status: Inactive Member Role Status Dates Dr. Rosie Stephenson DO Primary Care Provider Active Camilla Kidd PA, PA Attending Provider, Referr ing Provider Active Team Status: Active Member Role Status Dates Dr. Rosie Stephenson DO Primary Care Provider Active Dr. Yohannes Lux MD Attending Provider, Referring Pro vider Active Team Status: Active Member Role Status Dates Dr. Rosie Stephenson DO Primary Care Provider Active Dr. Enzo Kirk MD Emergency Provider Active Dr. Gilbert Matias , Attending Provider Active Team Status: Active Member Role Status Dates Dr. Rosie Stephenson DO Primary Care Provider Active Team Status: Inactive Member Role Status Dates Dr. Rosie Stephenson DO Primary Care Provider Active Start: December 10, 2024 End: December 10, 2024 Dr. Yohannes Lux MD Attending Provider Active S tart: December 10, 2024 End: December 10, 2024 Dr. Yohannes Lux MD Referring Provider Active S tart: December 10, 2024 End: December 10, 2024 Team Status: Inactive Member Role Status Dates Dr. Rosie Stephenson DO Primary Care Provider Active Start: February 01, 2025 End: February 01, 2025 Dr. Rosie Stephenson DO Referring Provider Active Start: February 01, 2025 End: February 01, 2025 ISRA Montano Attending Provider Active S tart: February 01, 2025 End: February 01, 2025 Team Status: Inactive Member Role Status Dates Dr. Rosie Stephenson DO Primary Care Provider Active Start: March 12, 2025 End: March 12, 2025 Dr. Rosie Stephenson DO Attending Provider Active Start: March 12, 2025 End: March 12, 2025 Dr. Rosie Stephenson DO Referring Provider Active Start: March 12, 2025 End: March 12, 2025 Team Status: Active Member Role Status Dates Dr. Rosie Stephenson DO Primary Care Provider Active Start: March 12, 2025 Dr. Roise Stephenson DO Attending Provider Active Start: March 12, 2025 Team Status: Inactive Member Role Status Dates Dr. Rosie Stephenson DO Primary Care Provider Active Start: March 12, 2025 End: March 12, 2025 Dr. Rosie Stephenson DO Attending Provider Active Start: March 12, 2025 End: March 12, 2025 Team Status: Active Member Role/Relationship Status Dates Dr. Rosie Stephenson DO Primary Care Provider Active Team Status: Inactive Member Role/Relationship Status Dates Dr. Rosie Stephenson DO Primary Care Provider Active Start: December 10, 2024 End: December 10, 2024 Dr. Yohannes Lux MD Attending Provider Active S tart: December 10, 2024 End: December 10, 2024 Dr. Yohannes Lux MD Referring Provider Active S tart: December 10, 2024 End: December 10, 2024 Team Status: Inactive Member Role/Relationship Status Dates Dr. Rosie Stephenson DO Primary Care Provider Active Start: February 01, 2025 End: February 01, 2025 Dr. Rosie Stephenson DO Referring Provider Active Start: February 01, 2025 End: February 01, 2025 ISRA Montano Attending Provider Active S tart: February 01, 2025 End: February 01, 2025 Team Status: Inactive Member Role/Relationship Status Dates Dr. Rosie Stephenson DO Primary Care Provider Active Start: March 11, 2025 End: March 11, 2025 Dr. Yoahnnes Lux MD Attending Provider Active S tart: March 11, 2025 End: March 11, 2025 Team Status: Inactive Member Role/Relationship Status Dates Dr. Rosie Stephenson DO Primary Care Provider Active Start: March 12, 2025 End: March 12, 2025 Dr. Rosie Stephenson DO Attending Provider Active Start: March 12, 2025 End: March 12, 2025 Dr. Rosie Stephenson DO Referring Provider Active Start: March 12, 2025 End: March 12, 2025 Team Status: Inactive Member Role/Relationship Status Dates Dr. Rosie Stephenson DO Primary Care Provider Active Start: March 12, 2025 End: March 12, 2025 Dr. Rosie Stephenson DO Attending Provider Active Start: March 12, 2025 End: March 12, 2025 Team Status: Inactive Member Role/Relationship Status Dates Dr. Rosie Stephenson DO Primary Care Provider Active Start: March 11, 2025 End: March 11, 2025 Dr. Yohannes Lux MD Attending Provider Active S tart: March 11, 2025 End: March 11, 2025 Dr. Yohannes Lux MD Referring Provider Active S tart: March 11, 2025 End: March 11, 2025 Team Status: Inactive Member Role/Relationship Status Dates Dr. Rosie Stephenson DO Primary Care Provider Active Start: April 09, 2025 End: April 09, 2025 Dr. Rosie Stephenson DO Referring Provider Active Start: April 09, 2025 End: April 09, 2025 Dr. Yohannes Lux MD Attending Provider Active S tart: April 09, 2025 End: April 09, 2025 Team Status: Active Member Role/Relationship Status Dates Dr. Rosie Stephenson DO Primary care physician Active Team Status: Inactive Member Role/Relationship Status Dates Dr. Rosie Stephenson DO Primary care physician Active Start: March 11, 2025 End: March 11, 2025 Dr. Yohannes Lux MD Attending physician Active Start: March 11, 2025 End: March 11, 2025 Dr. Yohannes Lux MD Referring Provider Active S tart: March 11, 2025 End: March 11, 2025 Team Status: Inactive Member Role/Relationship Status Dates Dr. Rosie Stephenson DO Primary care physician Active Start: March 12, 2025 End: March 12, 2025 Dr. Rosie Stephenson DO Attending physician Active Start: March 12, 2025 End: March 12, 2025 Dr. Rosie Stephenson DO Referring Provider Active Start: March 12, 2025 End: March 12, 2025 Team Status: Inactive Member Role/Relationship Status Dates Dr. Rosie Stephenson DO Primary care physician Active Start: March 12, 2025 End: March 12, 2025 Dr. Rosie Stephenson DO Attending physician Active Start: March 12, 2025 End: March 12, 2025 Team Status: Inactive Member Role/Relationship Status Dates Dr. Rosie Stephenson DO Primary care physician Active Start: April 09, 2025 End: April 09, 2025 Dr. Rosie Stephenson DO Referring Provider Active Start: April 09, 2025 End: April 09, 2025 Dr. Yohannes Lux MD Attending physician Active Start: April 09, 2025 End: April 09, 2025 Team Status: Inactive Member Role/Relationship Status Dates Dr. Rosie Stephenson DO Primary care physician Active Start: June 10, 2025 End: June 10, 2025 Dr. Yohannes Lux MD Attending physician Active Start: June 10, 2025 End: June 10, 2025 Team Status: Inactive Member Role/Relationship Status Dates Dr. Rosie Stephenson DO Primary care physician Active Start: June 17, 2025 End: June 17, 2025 Dr. Rosie Stephenson DO Referring Provider Active Start: June 17, 2025 End: June 17, 2025 Julee Delaney Attending physician Active Start: June 17, 2025 End: June 17, 2025 Team Status: Inactive Member Role/Relationship Status Dates Dr. Rosie Stephenson DO Primary care physician Active Start: June 19, 2025 End: June 19, 2025 Dr. Yohannes Lux MD Attending physician Active Start: June 19, 2025 End: June 19, 2025 Team Status: Inactive Member Role/Relationship Status Dates Dr. Rosie Stephenson DO Primary care physician Active Start: April 09, 2025 End: April 09, 2025 Dr. Rosie Stephenson DO Referring Provider Active Start: April 09, 2025 End: April 09, 2025 Dr. Yohannes Lux MD Attending physician Active Start: April 09, 2025 End: April 09, 2025 Team Status: Inactive Member Role/Relationship Status Dates Dr. Rosie Stephenson DO Primary care physician Active Start: June 10, 2025 End: June 10, 2025 Dr. Yohannes Lux MD Attending physician Active Start: June 10, 2025 End: June 10, 2025 Dr. Yohannes Lux MD Referring Provider Active S tart: June 10, 2025 End: June 10, 2025 Team Status: Inactive Member Role/Relationship Status Dates Dr. Rosie Stephenson DO Primary care physician Active Start: June 17, 2025 End: June 17, 2025 Dr. Rosie Stephenson DO Referring Provider Active Start: June 17, 2025 End: June 17, 2025 Dr. Yohannes Lux MD Attending physician Active Start: June 17, 2025 End: June 17, 2025 Team Status: Inactive Member Role/Relationship Status Dates Dr. Rosie Stephenson DO Primary care physician Active Start: June 19, 2025 End: June 19, 2025 Dr. Yohannes Lux MD Attending physician Active Start: June 19, 2025 End: June 19, 2025 Dr. Yohannes Lux MD Referring Provider Active S tart: June 19, 2025 End: June 19, 2025 Team Status: Inactive Member Role/Relationship Status Dates Dr. Rosie Stephenson DO Primary care physician Active Start: July 10, 2025 End: July 10, 2025 Dr. Rosie Stephenson DO Referring Provider Active Start: July 10, 2025 End: July 10, 2025 BIM NURSE Attending physician Active Start: O ct2024 End: July 10, 2025 FOR RECORDS PERTAINING TO PATIENTS WHO ARE OR HAVE BEEN ENROLLED IN A CHEMICAL DEPENDENCY/SUBSTANCEABUSE PROGRAM, SOME INFORMATION MAY BE OMITTED. This clinical summary was aggregated from multiple sources. Caution should be exercised in using it in the provision of clinical care. This summary normalizes information from multiple sources, and as a consequence, information in this document may materially change the coding, format and clinical context of patient data. In addition, data may be omitted in some cases. CLINICAL DECISIONS SHOULD BE BASED ON THE PRIMARY CLINICAL RECORDS. [facility] [employer] [facility]. provides no warranty or guarantee of the accuracy or completeness of information in this document.
[2025-09-08 16:59] LABS: Red Blood Cells-Urine 10-25 SEEN /hpf (0-5)
--- NOTE | 2025-09-08 17:00 | RAD_ITS ---
PROCEDURE: CHEST PA AND LATERAL 09/08/2025 REASON FOR EXAM: WEAKNESS TECHNIQUE: Procedure Code: RADCXR Modality: DX Procedure: CHEST PA AND LATERAL COMPARISON: August 2021. FINDINGS: Hardware and support lines: Dual lead cardiac pacing device. Remove that Heart: Negative. Lungs: Negative for infiltrates, or pulmonary edema. Pleura: No pleural thickening. No pleural effusion. Mediastinum and aorta: Negative for hilar adenopathy. Mildly tortuous thoracic aorta. Bones: Age-appropriate degenerative changes of the spine. Other: Remainder of the exam negative. RAD/Chest PA and Lateral IMPRESSION: Negative for acute cardiopulmonary disease Reading Location: [id number]
[2025-09-08 17:02] LABS: AST(SGOT) 40 U/L (<=37); Alanine Aminotransfer ALT/SGPT 24 U/L (<=46); Albumin, Serum 4.6 g/dL (3.4-4.8); Alkaline Phosphatase 94 U/L (40-129); Anion Gap 14 (5-15); BUN 11 mg/dL (4-19); BUN/Creat Ratio 8.8 RATIO (10-20); Calcium,Total 9.7 mg/dL (7.6-11.0); Carbon Dioxide 25.3 mmol/L (21.0-32.0); Chloride 100 mmol/L (98-108); Estimated Creatinine Clearance 49.75 ml/min (50-250); Globulin 4.1 g/dL (2.2-4.2); Glucose 154 mg/dL (70-99); Potassium 3.6 mmol/L (3.3-5.1)
--- OUTSIDE RECORDS SUMMARY | 2025-09-08 18:01 | XMS RPT_ITS | CCD ---
Author Organization [facility] Care Team Providers Care Teacher Of The Sight Impaired Name Role Phone VANESSA PITTS) Unavailable Unavailable ROSIE STEPHENSON Unavailable Unavailable VANESSA PITTS) Unavailable Unavailable Dr. Rosie Stephenson Primary Care Provider Dr. Rosie Stephenson Referring Provider Julee Delaney [...] Dr. Rosie Stephenson DO Primary Care Provider Dr. Yohannes Lux MD Attending Provider Dr. [...] Rosie R Primary Care Unavailable Jose J, [place] Attending Unavailable Jose J, Yohannes Referring Unavailable Brown, Rosie R Primary Care Unavailable Jojo Guzman Attending Unavailable Brown, Rosie R Referring Unavailable Brown, Rosie R Primary Care Unavailable Brown, Rosie R Attending Unavailable Brown, Rosie R Referring Unavailable Brown, Rosie R Primary Care Unavailable Jose J, Yohannes Attending Unavailable Jose J, [place] Referring Unavailable Brown, Rosie R Primary Care Unavailable Jose J, Yohannes Attending Unavailable Brown, Rosie R Referring Unavailable Jose J, [place] Attending Unavailable Jose J, [place] Referring Unavailable Brown, Rosie R Primary Care Unavailable Jose J, [place] Attending Unavailable Brown, Rosie R Referring Unavailable Brown, Rosie R Primary Care Unavailable Brown, Rosie R Primary Care Unavailable Brown, Rosie R Attending Unavailable Jose J, [place] Attending Unavailable Jose J, Yohannes Referring Unavailable [...] Dr. Yohannes Lux MD Referring Provider [phone] NURSE, BIM Attending Physician Unavailable Allergies Allergy Classification Reported Allergen(s) Allergy Type Date of Onset Reaction(s) Facility (1 source) cephalexin; Translations: [CEPHALEXIN] Drug Allergy 06-19-20 13 [facility] Repository (14 sources) hydrALAZINE; Translations: [HYDRALAZINE] Drug Allergy 03-22-20 14 AO, Unknown [facility] Repository (1 source) Latex; Translations: [LATEX] Propensity to adverse reactions to drug (disorder) 06-25-20 13 [facility] Repository (12 sources) hydroCHLOROthiazide Drug Allergy 01-28-20 Unknown [facility] (12 sources) valsartan Drug Allergy 01-28-20 Unknown [facility] (1 source) hydroCHLOROthiazide Drug Allergy 04-09-20 [facility] Repository (1 source) valsartan Drug Allergy 04-09-20 [facility] Repository Medications Current Medications Medication Drug Class(es) [...] 19, 2021 10:52am As directed Fluad Quad 7680-7641(65yr up)(PF) 60 mcg (15 mcg x 4)/0.5mL IM syringe (flu vac (1 source) Start: 07-07-2021 End: 07-07-2021 Fluad Quad [id number](65yr up)(PF) 60 mcg (15 mcg x 4)/0.5mL [...] 07/01/14; PPM gen change 2PPM Generator - Aircraft Structure Mechanic: VivaSmart, Model # Essentio MRI DR Model L111 , Serial # [id number] Diabetes mellitus without complication (20 sources) Type [...] (4 sources) Patient encounter status; Translations: [Other long 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 [place] [address] OFFICE VISIT Date of Service: 04/09/25 MR#: [id number] Acct: [id number] Name: DERRICK MCMULLEN Rep #: [id number] : 1945 Provider: Dr. Yohannes Lux MD Age/Sex: 79/M Location: [facility] Status: Signed HPI HPI History of Present [...] Monitor Intake Visit Reasons: 1 Y FU Kiss Machine Operator Required: No Accompanied by: Self Is patient in pain?: No Allergies hydralazine (Hydralazine) Allergy (Verified 04/09/25 09:54) Unknown hydrochlorothiazide (From Diovan HCT) Allergy (Verified 04/09/25 09:54) Unknown valsartan (From CityFibrevan HCT) Allergy (Verified 04/09/25 09:54) Unknown Medications [...] Chest Chest (more content not included)... Normal [facility] Anion gap in Serum or Plasma Ordered By: Rosie Stephenson on 03-12-2025 Anion gap [Moles/Vol] 12 mmol/L 02-07 [facility] [place] [facility] BUN/creatinine ratioOrdered By: Rosie Stephenson on 03-12-2025 Urea nitrogen/Creatinine [Mass ratio] 11.0 mg/mg - [facility] Basic Metabolic Profile (BMP )on 03-12-2025 BUN/CRE 11.0 RATIO Normal - [facility] Comment on above: Performed By: #### L 500.2500 #### [facility] [address] [facility] [place], [address] Calcium [Mass/Vol] 9.1 mg/dL Normal 7.6-11.0 [facility] Comment on above: Performed By: #### L 500.2500 #### [facility] [address] [place], [address] Chloride [Moles/Vol] 99 mmol/L Normal 98-108 [facility] [place] [facility] Comment on above: Performed By: #### L 500.2500 #### [facility] [address] [place], [address] CO2 [Moles/Vol] 26.2 mmol/L Normal 21.0-32.0 [facility] Comment on above: Performed By: #### L 500.2500 #### [facility] [address] [place], [address] Creatinine [Mass/Vol] 1.64 mg/dL High 0.70-1.20 [facility] [place] [facility] Comment on above: Performed By: #### L 500.2500 #### [facility] [address] [place], [address] GAP 12 Normal 5-15 [facility] Comment on above: Performed By: #### L 500.2500 #### [facility] [address] [place], [address] GFR/1.73 sq M.predicted among non-blacks MDRD (S/P/Bld) [Vol rate/Area] 42 mL/min/{1.73_m2} Low >60 [facility] Comment on above: Result Comment: mL/m in/1.73m2 CKD-EPI Creatinine Equation (2020) Performed By: #### L 500.2500 #### [facility] [address] [place], [address] Glucose [Mass/Vol] 199 mg/dL High 70-99 [facility] Comment on above: Performed By: #### L 500.2500 #### [facility] [address] [place], [address] Potassium [Moles/Vol] 3.8 mmol/L Normal 3.3-5.1 [facility] [place] [facility] Comment on above: Performed By: #### L 500.2500 #### [facility] [address] [place], [address] Sodium [Moles/Vol] 137 mmol/L Normal 133-145 [facility] Comment on above: Performed By: #### L 500.2500 #### [facility] [address] [place], [address] Urea nitrogen [Mass/Vol] 18 mg/dL Normal 4-19 [facility] Comment on above: Performed By: #### L 500.2500 #### [facility] [address] [place], [address] Carbon dioxide, total [Moles /volume] in Central venous bloodOrdered By: Rosie Stephenson on 03-12-2025 CO2 [Moles/Vol] 26.2 mmol/L 21.0-32.0 [facility] Chloride assayOrdered By: Do karl Stephenson on 03-12-2025 Chloride [Moles/Vol] 99 mmol/L 98-108 [facility] Glomerular filtration rate ( GFR) estimation/1.73 sq m using serum, plasma, or whole bOrdered By: Rosie Stephenson on 03-12-2025 GFR/1.73 sq M.predicted among non-blacks MDRD (S/P/Bld) [Vol rate/Area] 42 mL/min/{1.73_m2} Low >60 [facility] Comment on above: mL/min/1.73m2 CKD-EP I Creatinine Equation (2020) Internal Medicine Office Vis radha 03-12-2025 Internal Medicine Office Visit [facility] [address] [place] [address] [place] [address] OFFICE VISIT Date of Service: 03/12/25 MR#: [id number] Acct: [id number] Name: MCMULLENDERRICK H Rep #: [id number] : 1945 Provider: Dr. Rosie elizondo, DO Age/Sex: 79/M Location: [facility].[facility] Status: Signed Intake Vital Signs 09/11/24 09:03 [...] air Intake Visit Reasons: 6 M FU Kiss Machine Operator Required: No Is patient in pain?: No [...] year?: No Nurse's Note: needs metformin refilled. [facility] Medical History Distal esophageal obstruction due to [...] Endo Endocr (more content not included)... Normal [facility] - Hematology and Cell countsOrdered By: Rosie Stephenson on 03-12-2025 HbA1c (Bld) [Mass fraction] 8.4 % High 4.2-6.3 [facility] Potassium measurement (mass/ volume)Ordered By: Rosie Sachin on 03-12-2025 Potassium (Unsp spec) [Mass/Vol] 3.8 mmol/L 3.3-5.1 [facility] Serum creatinine measurement (mass/volume)Ordered By: Rosie Stephenson on 03-12-2025 Creatinine [Mass/Vol] 1.64 mg/dL High 0.70-1.20 [facility] Serum glucose measurement (m ass/volume)Ordered By: Rosie Stephenson on 03-12-2025 Glucose [Mass/Vol] 199 mg/dL High 70-99 [facility] Serum or plasma calcium stevan urement (mass/volume)Ordered By: Rosie Stephenson on 03-12-2025 Calcium [Mass/Vol] 9.1 mg/dL 7.6-11.0 [facility] Serum or plasma urea nitroge n measurement (mass/volume)Ordered By: Rosie Stephenson on 03-12-2025 Urea nitrogen [Mass/Vol] 18 mg/dL 4-19 [facility] Sodium levelOrdered By: Bob morris Sachin on 03-12-2025 Sodium [Moles/Vol] 137 mmol/L 133-145 [facility] Gastroenterology Visit Repor ton 02-01-2025 Gastroenterology Visit Report [facility] [address] [place] [address] OFFICE VISIT Date of Service: 02/01/25 MR#: [id number] Acct: [id number] Name: DERRICK MCMULLEN Dominga Rep #: [id number] : 1945 Provider: ISRA cavanaugh Age/Sex: 79/M Location: [facility] [facility] Status: Signed Intake Vital Signs 09/14/23 08:33 [...] General: appea (more content not included)... Normal [facility] Internal Medicine Office Vis radha 09-11-2024 Internal Medicine Office Visit [facility] [address] [place] [address] [place] [address] OFFICE VISIT Date of Service: 09/11/24 MR#: [id number] Acct: [id number] Name: DERRICK MCMULLEN Rep #: [id number] : 1945 Provider: Dr. Rosie elizondo, DO Age/Sex: 78/M Location: [facility].[facility] Status: Signed Intake Vital Signs 03/14/24 08:27 09/11/24 09:03 Height 6 ft 6 ft Weight: 166 lb BMI 22.5 BP 112/62 Blood Pressure Location Lt brachial Position Sitting Respiration 16 Pulse 62 Pulse Source Monitor Temp 97.2 F L Temp Source Temporal Intake Visit Reasons: 6 M FU Chief Complaint: 6m f/u Kiss Machine Operator Required: No Accompanied by: Self Is patient [...] you fallen in the past year?: No [facility] COVID-19 Presbycusis of both ears [...] healthy appearing Nutritional Appearance: thin Orientation: alert HENNM Head: normal to inspection Ears: hearing grossly (more content not included)... Normal [facility] Basophil percentageOrdered B y: Dr. Stephenson on 03-15-2023 Bilirubin [Mass/Vol] 0.90 mg/dL 0.20-1.00 [facility] Comment on above: For patients on eltr ombopag therapy, use of Dimension [place] TBIL is not recommended. Chloride [Moles/Vol] 104 mmol/L 98-107 [facility] Cholesterol [Mass/Vol] 125 mg/dL <200 [facility] Comment on above: <200 mg/dL Desirable 200-240 mg/dL Borderline >240 mg/dL High Risk Glucose [Mass/Vol] 135 mg/dL 74-106 [facility] Comment on above: Fasting Glucose resu lt greater than or equal to 126 mg/dL suggests DIABETES MELLITUS per A.D.A. criteria. Potassium [Moles/Vol] 4.1 mmol/L 3.5-5.1 [facility] Comment on above: Slight Hemolysis, Re sult may be falsely increased. Protein [Mass/Vol] 8.4 g/dL 6.4-8.2 [facility] Sodium [Moles/Vol] 140 mmol/L 136-145 [facility] Triglyceride [Mass/Vol] 84 mg/dL <[address] [...] 03-15-2023 ALP [Catalytic activity/Vol] 101 U/L 45-117 [facility] ALT [Catalytic activity/Vol] 22 U/L 16-61 [facility] CO2 [Moles/Vol] 30.0 mmol/L 21.0-32.0 [facility] Globulin (S) [Mass/Vol] 4.8 g/dL 2.2-4.[address] [facility] Urea nitrogen/Creatinine [Mass ratio] 17.1 mg/mg - [facility] - Hematology and Cell countson 03-15-2023 HbA1c (Bld) [Mass fraction] 7.2 % 4.2-6.3 [facility] No Panel InformationOrdered By: Dr. Stephenson on 03-15-2023 Addendum Document Comment . [facility] Comment on above: The SPE pattern appe ars unremarkable. Evidence ofmonoclonal protein is not apparent.Performed at: [facility] [id number] Director: Nicolas Metzger PhD, Phone: [phone] Mirrt-0-Vdvqdyuil 0.3 g/dL 0.0-0.4 [facility] Ntjll-4-Megrmewba 0.9 g/dL 0.4-1.0 [facility] Estimated GFR (MDRD) Amer 77 mL/min >60 [facility] Comment on above: GFR Calc Estimated GFR (MDRD) Non-Af Amer 64 mL/min >60 [facility] Comment on above: Non- GFR Calc Gamma Globulins 1.7 g/dL 0.4-1.8 [facility] Protein Fractions Elph [Inte rp]Ordered By: Dr. Stephenson on 03-15-2023 Protein Fractions [Interp] Comment . [facility] Comment on above: Protein electrophore sis scan will follow via computer,mail, or players assistant delivery. Serum albumin to globulin ra yaz by protein electrophoresisOrdered By: Dr. Stephenson on 03-15-2023 Albumin/Globulin Elph [Mass ratio] 0.9 0.7-1.7 [facility] Serum globulin measurement ( mass/volume)Ordered By: Dr. Stephenson on 03-15-2023 Globulin (S) [Mass/Vol] 4.1 g/dL 2.2-3.[address] [facility] Serum or plasma albumin stevan urement (mass/volume)Ordered By: Dr. Stephenson on 03-15-2023 Albumin [Mass/Vol] 3.6 g/dL 2.9-4.4 [facility] Serum or plasma albumin/glob ulin mass ratioOrdered By: Dr. Stephenson on 03-15-2023 Albumin/Globulin [Mass ratio] 0.8 {ratio} 0.9-2.4 [facility] Serum or plasma beta globuli n measurement by electrophoresis (mass/volume)Ordered By: Dr. Stephenson on 03-15-2023 Beta globulin Elph [Mass/Vol] 1.2 g/dL 0.7-1.3 [facility] Serum or plasma calcium stevan urement (mass/volume)Ordered By: Dr. Stephenson on 03-15-2023 Calcium [Mass/Vol] 9.2 mg/dL 8.5-10.1 [facility] Serum or plasma cholesterol in HDL measurement (mass/volume)Ordered By: Dr. Stephenson on 03-15-2023 Cholesterol in HDL [Mass/Vol] 49 mg/dL >40 [facility] Comment on above: The drugs N-Acetylcy steine and Metamizole may falsely depress this assay. Reference Range HDL <40 mg/dL Low HDL Cholesterol HDL >or= 60 mg/dL High HDL Cholesterol Serum or plasma cholesterol in VLDL measurement (mass/volume)Ordered By: Dr. Stephenson on 03-15-2023 Cholesterol in VLDL [Mass/Vol] 17 mg/dL 5-40 [facility] Serum or plasma creatinine m easurement (mass/volume)Ordered By: Dr. Stephenson on 03-15-2023 Creatinine [Mass/Vol] 1.17 mg/dL 0.70-1.30 [facility] Comment on above: The validity of the calculated GFR & GFRAA in patients over 70 years has not been determined. Clinical correlation is essential. Serum or plasma low density lipoprotein (LDL) cholesterol measurement (mass/volume)Ordered By: Dr. Stephenson on 03-15-2023 Cholesterol in LDL [Mass/Vol] 59 mg/dL 0-130 [facility] Serum or plasma urea nitroge n measurement (mass/volume)Ordered By: Dr. Stephenson on 03-15-2023 Urea nitrogen [Mass/Vol] 20 mg/dL 7-18 [facility] Thin prep Papanicolaou smear with manual screeningOrdered By: Dr. Stephenson on 03-15-2023 Thin prep Papanicolaou smear with manual screening 23 U/L 15-37 [facility] Comment on above: Slight Hemolysis, Re sult may be falsely increased. Thin prep Papanicolaou smear with manual screening 6 5-15 [facility] Thin prep Papanicolaou smear with manual screening See comment [facility] Comment on above: NOT OBSERVED Total protein bloodOrdered B y: Dr. Stephenson on 03-15-2023 Protein [Mass/Vol] 7.7 g/dL 6.0-8.5 [facility] Basophil percentageon 2021 Chloride [Moles/Vol] 104 mmol/L 98-107 [facility] Work Phone: Glucose [Mass/Vol] 127 mg/dL 74-106 [facility] Work Phone: Comment on above: Fasting Glucose resu lt greater than or equal to 126 mg/dL suggests DIABETES MELLITUS per A.D.A. criteria. Potassium [Moles/Vol] 4.0 mmol/L 3.5-5.1 [facility] Work Phone: Sodium [Moles/Vol] 136 mmol/L 136-145 [facility] Work Phone: Laboratory - Chemistry and C hemistry - challengeon 01-27-2022 CO2 [Moles/Vol] 22.0 mmol/L 21.0-32.0 [facility] Work Phone: Urea nitrogen/Creatinine [Mass ratio] 14.2 mg/mg 10-20 [facility] Work Phone: No Panel Informationon 01-27 Estimated GFR (MDRD) Amer 71 mL/min >60 [facility] Work Phone: Comment on above: GFR Calc Estimated GFR (MDRD) Non-Af Amer 58 mL/min >60 [facility] Work Phone: Comment on above: Non- GFR Calc Serum or plasma calcium stevan urement (mass/volume)on 01-27-2022 Calcium [Mass/Vol] 8.7 mg/dL 8.5-10.1 [facility] Work Phone: Serum or plasma creatinine m easurement (mass/volume)on 01-27-2022 Creatinine [Mass/Vol] 1.27 mg/dL 0.70-1.30 [facility] Work Phone: Comment on above: The validity of the calculated GFR & GFRAA in patients over 70 years has not been determined. Clinical correlation is essential. Serum or plasma urea nitroge n measurement (mass/volume)on 01-27-2022 Urea nitrogen [Mass/Vol] 18 mg/dL 7-18 [facility] Work Phone: Thin prep Papanicolaou smear with manual screeningon 01-27-2022 Thin prep Papanicolaou smear with manual screening 10 5-15 [facility] Work Phone: Basophil percentageon 2021 Cholesterol [Mass/Vol] 135 mg/dL <200 [facility] Work Phone: Comment on above: <200 mg/dL [...] 11-04-2021 HbA1c (Bld) [Mass fraction] 7.9 % [facility] Work Phone: Serum or plasma cholesterol in HDL measurement (mass/volume)on 11-04-2021 Cholesterol in HDL [Mass/Vol] 46 mg/dL [facility] Work Phone: Comment on above: The drugs N-Acetylcy steine and Metamizole may falsely depress this assay. Reference Range HDL <40 mg/dL Low HDL Cholesterol HDL >or= 60 mg/dL High HDL Cholesterol Serum or plasma cholesterol in VLDL measurement (mass/volume)on 11-04-2021 Cholesterol in VLDL [Mass/Vol] 21 mg/dL 5-40 [facility] Work Phone: Serum or plasma low density lipoprotein (LDL) cholesterol measurement (mass/volume)on 11-04-2021 Cholesterol in LDL [Mass/Vol] 68 mg/dL 0-130 [facility] Work Phone: C-Reactive Proteinon 018 CRP mass conc 0.3 mg/dL Normal <0.9 [facility] Comment on above: Performed By: #### C BC, C3COMP, C4COMP, CRET1, CRP, HFP, WSR, DNA ####[place] [address] [place] [place], [place] [phone] C3 Complementon 06-12-2018 C3 Complement 107 mg/dL Normal 86-166 [facility] Comment on above: Performed By: #### C BC, C3COMP, C4COMP, CRET1, CRP, HFP, WSR, DNA ####[place] [address], [place] [phone] C4 Complementon 06-12-2018 C4 Complement 23 mg/dL Normal 13-46 [facility] Comment on above: Performed By: #### C BC, C3COMP, C4COMP, CRET1, CRP, HFP, WSR, DNA ####[address] [phone] CBCon 06-12-2018 Absolute nRBC <0.01 Normal <0.01 [facility] Comment on above: Performed By: #### C BC, C3COMP, C4COMP, CRET1, CRP, HFP, WSR, DNA ####[place] [address] [address], [place] [phone] Erythrocyte distribution width Auto Ratio (RBC) 13.0 % Normal 11.5-15.0 [facility] Comment on above: Performed By: #### C BC, C3COMP, C4COMP, CRET1, CRP, HFP, WSR, DNA ####[place] [address] [address] [place] [phone] Hematocrit Auto Volume Fraction (Bld) 45.0 % Normal 39.0-51.0 [facility] Comment on above: Performed By: #### C BC, C3COMP, C4COMP, CRET1, CRP, HFP, WSR, DNA ####[place] [address] [address] [phone] Hemoglobin mass conc (Bld) 14.5 g/dL Normal 13.0-17.0 [facility] Comment on above: Performed By: #### C BC, C3COMP, C4COMP, CRET1, CRP, HFP, WSR, DNA ####[address] [phone] MCH Auto Entitic mass (RBC) 33.4 pG Normal 26.0-34.0 [facility] Comment on above: Performed By: #### C BC, C3COMP, C4COMP, CRET1, CRP, HFP, WSR, DNA ####[place] [address] [address] [place] [phone] MCHC Auto mass conc (RBC) 32.2 g/dL Normal 30.5-36.0 [facility] Comment on above: Performed By: #### C BC, C3COMP, C4COMP, CRET1, CRP, HFP, WSR, DNA ####[place] [address] [address] [place] [phone] MCV Auto Entitic volume (RBC) 103.7 fL High 80.0-100.0 [facility] Comment on above: Performed By: #### C BC, C3COMP, C4COMP, CRET1, CRP, HFP, WSR, DNA ####[place] [address] [address] [place] [phone] Platelet mean volume Auto Entitic volume (Bld) 11.7 fL Normal 9.0-12.7 [facility] Comment on above: Performed By: #### C BC, C3COMP, C4COMP, CRET1, CRP, HFP, WSR, DNA ####[place] [address], [place] [phone] Platelets Auto #/vol (Bld) 208 10*3/uL Normal 150-400 [facility] Comment on above: Performed By: #### C BC, C3COMP, C4COMP, CRET1, CRP, HFP, WSR, DNA ####[place] [address], [place] [phone] RBC Auto #/vol (Bld) 4.34 10*6/uL Normal 4.20-6.00 [facility] Comment on above: Performed By: #### C BC, C3COMP, C4COMP, CRET1, CRP, HFP, WSR, DNA ####[address] [phone] WBC Auto #/vol (Bld) 10.23 10*3/uL Normal 3.70-11.[address] [facility] Comment on above: Performed By: #### C BC, C3COMP, C4COMP, CRET1, CRP, HFP, WSR, DNA ####[address] [phone] Creatinineon 06-12-2018 Creatinine mass conc 1.14 mg/dL Normal 0.73-1.22 [facility] Comment on above: Performed By: #### C BC, C3COMP, C4COMP, CRET1, CRP, HFP, WSR, DNA ####[place] [address], [place] [phone] eGFR- Amer. >60 Normal [facility] Comment on above: Performed By: #### C BC, C3COMP, C4COMP, CRET1, CRP, HFP, WSR, DNA ####[address] [place], [place] [phone] GFR/1.73 sq M predicted among non-blacks MDRD vol rate/area (S/P/Bld) mL/min/{1.73_m2} Normal [facility] Comment on above: Result Comment: eGFR (Estimated [...] C3COMP, C4COMP, CRET1, CRP, HFP, WSR, DNA ####[facility] [place], [place] [phone] DNA Antibody w/ Conf.on 05-27 DNA Antibody w/ Conf. 13 IU/mL Normal <30 [facility] Comment on above: Result Comment: Nega tive for ds DNA AntibodiesNegative: <30 IU/mLEquivocal: 30-74 IU/mLPositive: >74 IU/mL Performed By: #### C BC, C3COMP, C4COMP, CRET1, CRP, HFP, WSR, DNA ####[facility] [place], [place] [phone] Hepatic Functn Panelon 06-12 Albumin mass conc 4.0 g/dL Normal 3.9-4.9 [facility] Comment on above: Performed By: #### C BC, C3COMP, C4COMP, CRET1, CRP, HFP, WSR, DNA ####[place] [id number] [place], [place] [phone] ALP enzyme act/vol 84 U/L Normal 36-108 [facility] Comment on above: Performed By: #### C BC, C3COMP, C4COMP, CRET1, CRP, HFP, WSR, DNA ####[place] [address], [place] [phone] ALT enzyme act/vol 21 U/L Normal 10-54 [facility] Comment on above: Performed By: #### C BC, C3COMP, C4COMP, CRET1, CRP, HFP, WSR, DNA ####[place] [address], [place] [phone] AST enzyme act/vol 27 U/L Normal 14-40 [facility] Comment on above: Performed By: #### C BC, C3COMP, C4COMP, CRET1, CRP, HFP, WSR, DNA ####[place] [address], [place] [phone] Bilirubin mass conc 0.7 mg/dL Normal 0.2-1.3 [facility] Comment on above: Performed By: #### C BC, C3COMP, C4COMP, CRET1, CRP, HFP, WSR, DNA ####[address] [place], [place] [phone] Bilirubin,Conjugated <0.2 Normal <0.2 [facility] Comment on above: Performed By: #### C BC, C3COMP, C4COMP, CRET1, CRP, HFP, WSR, DNA ####[address] [place], [place] [phone] Protein mass conc 6.9 g/dL Normal 6.3-8.0 [facility] Comment on above: Performed By: #### C BC, C3COMP, C4COMP, CRET1, CRP, HFP, WSR, DNA ####[address], [place] [phone] Protein/Creatinine Ratioon 0 - Creatinine,Urine,Ran 230.1 mg/dL Normal 20-300 [facility] Comment on above: Performed By: #### P RATIO ####[place] [address], [place] [phone] Protein Urine Random 19 mg/dL Normal 0-20 [facility] Comment on above: Performed By: #### P RATIO ####[place] [address] [place] [phone] Protein/Creatinine Ratio 0.1 Normal <0.2 [facility] Comment on above: Performed By: #### P RATIO ####[place] [address] [address] [phone] Sed Rate Westergrenon 2017 Sed Rate Westergren 12 mm/hr Normal 0-15 [facility] Comment on above: Performed By: #### C BC, C3COMP, C4COMP, CRET1, CRP, HFP, WSR, DNA ####[place] [address] [address] [phone] Urinalysison 06-12-2018 Bilirubin, Urine Negative Normal Negative [facility] Comment on above: Performed By: #### U A ####[place] [address] [place] [phone] Cast SEE COMMENT Critically abnormal 0 [facility] Comment on above: Result Comment: >10H yaline Cast Performed By: #### U A ####[place] [address] [address] [phone] Clarity Cloudy Critically abnormal Clear [facility] Comment on above: Performed By: #### U A ####[place] [address] [address] [phone] Color Yellow Normal Yellow [facility] Comment on above: Performed By: #### U A ####[place] [address], [place] [phone] Comments SEE COMMENT Normal [facility] Comment on above: Result Comment: Micr oscopic Examination Performed Performed By: #### U A ####[place] [address] [place], [place] [phone] Glucose Ql (U) Negative Normal Negative [facility] Comment on above: Performed By: #### U A ####[place] [phone] Hemoglobin/Blood,Ur 2+ Critically abnormal Negative [facility] Comment on above: Performed By: #### U A ####[place] [address] [address] [place] [phone] INR Coag RelTime (Bld) 3-5 Criticall y abnormal 0-3 [facility] Comment on above: Performed By: #### U A ####[place] [phone] Ketones Ql (U) Negative Normal Negative [facility] Comment on above: Performed By: #### U A ####[place] [address] [address] [place] [phone] Leukest Negative Normal Negative [facility] Comment on above: Performed By: #### U A ####[place] [phone] Nitrites Negative Normal Negative [facility] Comment on above: Performed By: #### U A ####[place] [phone] pH 5.0 Normal 4.5-8.0 [facility] Comment on above: Performed By: #### U A ####[address] [phone] Protein, Urine 30 mg/dL Critically abnormal Negative [facility] Comment on above: Performed By: #### U A ####[place] [phone] Specific [place], Ur 1.017 Normal 1.005-1.030 [facility] Comment on above: Performed By: #### U A ####[facility] [address], [place] [phone] Urine Mango Comment SEE COMMENT Normal [facility] Comment on above: Result Comment: N/A Performed By: #### U A ####[facility], [place] [phone] Urobilinogen Normal Normal Normal [facility] Comment on above: Performed By: #### U A ####[facility] [address], [place] [phone] WBC 0-5 Normal 0-5 [facility] Comment on above: Performed By: #### U A ####[facility], [place] [phone] CNOVon 06-09-2018 CNOV Office Visit (RHEUST) BENEDICTJose Orr ([id number]) 1945 MDate Time Provider Department06/09/18 12:40 PM VANESSA PITTS) RHETL During your visit today, we recorded the following information about you: Temperature Pulse Blood pressure Weight 98.1 degrees 68/minute 131/64 83.9 kg Height 1.803 Champ Pitts MD 06/09/2018 12:46 PM SignedOn 06/09/2018, I had the pleasure of seeing Derrick Mcmullen at the [facility] for follow-up of 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 Haddad with reportsof joint [...] Mother- other (MS [Other]) SisterSOCIAL HISTORY:Lives in [place] with . 2 daughters (1 in [place] and 1 in [place]), 1granddaughter (17 yo started at [employer] in May, wants to be a nurse)-OHTobacco [...] Review (ANCA) Reviewed by Neena Jeff MD ([id number])JOANN by EIA, Qual Negative NegativeANA by EIA [...] . .Staff Review (ANCA) Reviewed by Neena eJff MD ([id number]) Reviewed by MD Elicia ([id number])Component Latest Ref Rng AND Units 07/11/2013Histone Ab, IgG <1.0 Units 7.3 (H)Component Latest Ref Rng AND Units 06/25/2013 07/11/2013Sm Antibody <1.0 AI <0.2RNP Antibody <1.0 AI 0.8SSA Antibody <1.0 AI <0.2SSB Antibody <1.0 AI <0.2Centromere Ab <1.0 AI <0.2Scleroderma Ab, IgG <1.0 AI <0.2Jo 1 Antibody <1.0 AI <0.2Ribosomal DIGITAL CAMPAIGN MANAGER <1.0 AI 0.2Chromatin Antibody <1.0 AI 1.6 [...] Ashley in nephrology ASAPReferring Provider: ROSIE STEPHENSON [[id number]]Allergies As of Date: 06/09/2018 Noted Allergy ReactionHYDRALAZINE [...] type [R31.9]Order(s):HEPATIC FUNCTION PNL [SQHFP] Order #: [id number] FUTURE CBC [SQCBC] Order #: [id number] FUTURE CREATININE BLD [SQCRET] Order #: [id number] FUTURE C-REACTIVE PROTEIN (CRP) [SQCRP] Order #: [id number] FUTURE SED RATE WESTERGREN [SQWSR] Order #: [id number] FUTURE PROTEIN CREATININE RATIO [SQPRATIO] Order #: [id number] FUTURE UA CHEMSTRIP ONLY [SQUA] Order #: [id number] FUTURE C4 COMPLEMENT BLD [[id number]] Order #: [id number] FUTURE C3 COMPLEMENT BLD [NQY6BUAV] Order #: [id number] FUTURE DNA AB DS + CONF BLD [SQDNA] Order #: [id number] FUTUREPrescriptions as of 06/09/2018 Sig: METOPROLOL SUCCINATE [...] Mcmullen Pitts M.D.Department of Rheumatic and Immunologic DiseaseSOrlando Health Dr[facility] Phillips HospitalC[address] [place], [place] [address]Pqlrvrjzhwyh: [phone]: [phone]: Cvilyqc Nathalie Sachin, [address] [place] [address]Wxbbi: [phone]: [phone] 14, 2018RE: Derrick Mcmullen [phone] [place] [address] Dr. Salgado was a pleasure to see your patient, Mr. Mcmullen in our Rheumatologydepartment on June 09, 2018. Enclosed please find a copy of my officevisit notes for your records.If you have any questions, please do not hesitate to contact my office.Sincerely yours,Vanessa Pitts MD(Electronically signed to expedite mailing) Status:Closed by VNAESSA PITTS MD on 06/09/18 Normal [facility] PROGRESSon 06-09-2018 Protein mass conc HNO ID: [id number]: Vanessa Nevarez) TommieaiService: (none)Author Type: PhysicianType: Progress NotesFiled: 06/09/2018 12:46 PMNote Text:On 06/09/2018, I had the pleasure of seeing Derrick Mcmullen at the [facility] for follow-up of 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 Haddad withreports of joint [...] Mother- other (MS [Other]) SisterSOCIAL HISTORY:Lives in [place] with . 2 daughters (1 in [place] and 1 in [place]), 1granddaughter (17 yo started at [employer] in Sep '17, wants to be anurse)-OHTobacco [...] Review (ANCA) Reviewed by Neena Jeff MD ([id number])JOANN by EIA, Qual Negative NegativeANA by EIA [...] Review (ANCA) Reviewed by Neena Jeff MD ([id number]) Reviewed byNeena Jeff MD ([id number])Component Latest Ref Rng AND Units 07/11/2013Histone Ab, IgG <1.0 Units 7.3 (H)Component Latest Ref Rng AND Units 06/25/2013 07/11/2013Sm Antibody <1.0 AI <0.2RNP Antibody <1.0 AI 0.8SSA Antibody <1.0 AI <0.2SSB Antibody <1.0 AI <0.2Centromere Ab <1.0 AI <0.2Scleroderma Ab, IgG <1.0 AI <0.2Jo 1 Antibody <1.0 AI <0.2Ribosomal DIGITAL CAMPAIGN MANAGER <1.0 AI 0.2Chromatin Antibody <1.0 AI 1.6 [...] the care of your patient.Vanessa Pitts MD [facility] Vital Signs Date Time Vital Sign Value Performing Clinician Bindu mayen 04-09-2025 09:51-0400 Body height 182.[address] Rosie Stephenson DO Work Phone: [facility] 04-09-2025 09:51-0400 Body mass index (BMI) [Ratio] 22.5 kg/m2 Dr. Rosie Stephenson DO Work Phone: [facility] 04-09-2025 09:51-0400 Body weight 75.[address] Rosie Stephenson DO Work Phone: [facility] 04-09-2025 09:51-0400 Diastolic blood pressure 58 mm[Hg] Dr. Rosie Stephenson DO Work Phone: [facility] 04-09-2025 09:51-0400 Heart rate 60 /min Dr. Rosie Stephenson DO Work Phone: [facility] 04-09-2025 09:51-0400 Respiratory rate 16 /min Dr. Rosie Stephenson DO Work Phone: [facility] 04-09-2025 09:51-0400 Systolic blood pressure 99 mm[Hg] Dr. Rosie Stephenson DO Work Phone: [facility] 03-12-2025 09:08-0400 Body height 182.[address] Rosie Stephenson DO Work Phone: [facility] 03-12-2025 09:08-0400 Body mass index (BMI) [Ratio] 22.6 kg/m2 Dr. Rosie Stephenson DO Work Phone: [facility] 03-12-2025 09:08-0400 Body temperature 97.5 [degF] Dr. Rosie Stephenson DO Work Phone: [facility] 03-12-2025 09:08-0400 Body weight 75.[address] Rosie Stephenson DO Work Phone: [facility] 03-12-2025 09:08-0400 Diastolic blood pressure 66 mm[Hg] Dr. Rosie Stepehnson DO Work Phone: [facility] 03-12-2025 09:08-0400 Heart rate 61 /min Dr. Rosie Stephenson DO Work Phone: [facility] 03-12-2025 09:08-0400 Respiratory rate 16 /min Dr. Rosie Stephenson DO Work Phone: [facility] 03-12-2025 09:08-0400 SaO2% (BldA) [Mass fraction] 99 % Dr. Rosie Stephenson DO Work Phone: [facility] 03-12-2025 09:08-0400 Systolic blood pressure 112 mm[Hg] Dr. Rosie Stephenson DO Work Phone: [facility] 08-24-2023 12:02-0500 Body height 183.[address] Rosie Stephenson Work Phone: [facility] 08-24-2023 12:02-0500 Body mass index (BMI) [Ratio] 21.4 kg/m2 Dr. Rosie Stephenson Work Phone: [facility] 08-24-2023 12:02-0500 Body weight 71.[address] Rosie Stephenson Work Phone: [facility] 08-24-2023 10:57-0500 Body temperature 97.5 [degF] Dr. Rosie Stephenson Work Phone: [facility] 08-24-2023 10:57-0500 Diastolic blood pressure 82 mm[Hg] Dr. Rosie Stephenson Work Phone: [facility] 08-24-2023 10:57-0500 Heart rate 82 /min Dr. Rosie Stephenson Work Phone: [facility] 08-24-2023 10:57-0500 Respiratory rate 18 /min Dr. Rosie Stephenson Work Phone: [facility] 08-24-2023 10:57-0500 SaO2% (BldA) [Mass fraction] 92 % Dr. Rosie Stephenson Work Phone: [facility] 08-24-2023 10:57-0500 Systolic blood pressure 136 mm[Hg] Dr. Rosie Stephenson Work Phone: [facility] 05-16-2023 11:06-0400 Body height 182.[address] Rsoie Stephenson Work Phone: [facility] 05-16-2023 11:02-0400 Body mass index (BMI) [Ratio] 20.9 kg/m2 Dr. Rosie Stephenson Work Phone: [facility] 05-16-2023 11:02-0400 Body weight 70.[address] Rosie Stephenson Work Phone: [facility] 05-16-2023 11:02-0400 Diastolic blood pressure 59 mm[Hg] Dr. Rosie Stephenson Work Phone: [facility] 05-16-2023 11:02-0400 Heart rate 61 /min Dr. Rosie Stephenson Work Phone: [facility] 05-16-2023 11:02-0400 Respiratory rate 18 /min Dr. Rosie Stephenson Work Phone: [facility] 05-16-2023 11:02-0400 SaO2% (BldA) [Mass fraction] 100 % Dr. Rosie Stephenson Work Phone: [facility] 05-16-2023 11:02-0400 Systolic blood pressure 109 mm[Hg] Dr. Rosie Stephenson Work Phone: [facility] 03-15-2023 09:17-0400 Body temperature 97.4 [degF] Dr. Rosie Stephenson Work Phone: [facility] 03-15-2023 09:17-0400 Body weight 72.[address] Rosie Stephenson Work Phone: [facility] 03-15-2023 09:17-0400 Diastolic blood pressure 70 mm[Hg] Dr. Rosie Stephenson Work Phone: [facility] 03-15-2023 09:17-0400 Heart rate 60 /min Dr. Rosie Stephenson Work Phone: [facility] 03-15-2023 09:17-0400 Respiratory rate 16 /min Dr. Rosie Stephenson Work Phone: [facility] 03-15-2023 09:17-0400 SaO2% (BldA) [Mass fraction] 99 % Dr. Rosie Stephenson Work Phone: [facility] 03-15-2023 09:17-0400 Systolic blood pressure 116 mm[Hg] Dr. Rosie Stephenson Work Phone: [facility] 01-27-2022 10:00-0400 Body height 182.[address] Rosie Stephenson Work Phone: [facility] Work Phone: 01-27-2022 10:00-0400 Body mass index (BMI) [Ratio] 22.4 kg/m2 Dr. Rosie Stephenson Work Phone: [facility] Work Phone: 01-27-2022 10:00-0400 Body temperature 96.9 [degF] Dr. Rosie Stephenson Work Phone: [facility] Work Phone: 01-27-2022 10:00-0400 Body weight 75.[address] Rosie Stephenson Work Phone: [facility] Work Phone: 01-27-2022 10:00-0400 Diastolic blood pressure 66 mm[Hg] Dr. Rosie Stephenson Work Phone: [facility] Work Phone: 01-27-2022 10:00-0400 Heart rate 60 /min Dr. Rosie Stephenson Work Phone: [facility] Work Phone: 01-27-2022 10:00-0400 Respiratory rate 16 /min Dr. Rosie Stephenson Work Phone: [facility] Work Phone: 01-27-2022 10:00-0400 SaO2% (BldA) [Mass fraction] 99 % Dr. Rosie Stephenson Work Phone: [facility] Work Phone: 01-27-2022 10:00-0400 Systolic blood pressure 120 mm[Hg] Dr. Rosie Stephenson Work Phone: [facility] Work Phone: 11-04-2021 07:31-0500 Body temperature 97.8 [degF] Dr. Rosie Stephenson Work Phone: [facility] Work Phone: 11-04-2021 07:31-0500 Body weight 77.[address] Rosie Stephenson Work Phone: [facility] Work Phone: 11-04-2021 07:31-0500 Diastolic blood pressure 70 mm[Hg] Dr. Rosie Stephenson Work Phone: [facility] Work Phone: 11-04-2021 07:31-0500 Heart rate 60 /min Dr. Rosie Stephenson Work Phone: [facility] Work Phone: 11-04-2021 07:31-0500 Respiratory rate 14 /min Dr. Rosie Stephenson Work Phone: [facility] Work Phone: 11-04-2021 07:31-0500 SaO2% (BldA) [Mass fraction] 99 % Dr. Rosie Stephenson Work Phone: [facility] Work Phone: 11-04-2021 07:31-0500 Systolic blood pressure 112 mm[Hg] Dr. Rosie Stephenson Work Phone: [facility] Work Phone: 05-13-2021 08:32-0400 Body mass index (BMI) [Ratio] 23.4 kg/m2 Dr. Rosie Stephenson Work Phone: [facility] Work Phone: Encounters Encounter Date Encounter Type Care Provider Facility Start: 07-10-2025 End: 07-10-2025 Patient encounter procedure BIM NURSE -[facility] Work Phone: Start: 07-10-2025 End: 07-10-2025 ambulatory BIM NURSE Facility:[facility] Start: 06-19-2025 End: 06-19-[address] Rosie Stephenson DO Work Phone: -[facility] Start: 06-19-2025 End: 06-19-[address] Yohannes Lux MD -[facility] Work Phone: Start: 06-17-2025 End: 06-17-2025 Patient encounter procedure Julee Delaney -[facility] Work Phone: Start: 06-17-2025 End: 06-17-[address] Rosie Stephenson DO Work Phone: -[facility] Start: 06-10-2025 End: 06-10-[address] Rosie Stephenson DO Work Phone: -[facility] Start: 06-10-2025 End: 06-10-[address] Yohannes Lux MD -[facility] Work Phone: Start: 04-09-2025 End: 04-09-[address] Yohannes Lux MD -[facility] Work Phone: Start: 04-09-2025 End: 04-09-[address] Rosie Stephenson DO Work Phone: -[facility] Start: 03-12-2025 End: 03-12-[address] Rosie Zelaya DO -[facility] Work Phone: Start: 03-12-2025 End: 03-12-[address] Rosie Stephenson DO Work Phone: [facility] Work Phone: Start: 03-12-2025 End: 03-12-2025 ambulatory Rosie Stephenson Facility:[facility] Start: 03-11-2025 End: 03-11-[address] Rosie Stephenson DO Work Phone: -[facility] Start: 03-11-2025 End: 03-11-[address] Yohannes Lux MD -[place] [facility] Work Phone: Start: 02-01-2025 End: 02-01-2025 Patient encounter procedure Jojo DHALIWAL -[facility] Work Phone: Start: 02-01-2025 End: 02-01-2025 ambulatory Rosie Stephenson Facility:[facility] Start: 12-10-2024 End: 12-10-2024 ambulatory Rosie Stephenson Facility:[facility] Start: 12-10-2024 End: 12-10-[address] Yohannes Lux MD -[facility] Work Phone: Start: 09-11-2024 End: 09-11-2024 ambulatory Rosie Stephenson Facility:[facility] Start: 09-10-2024 End: 09-10-2024 ambulatory Rosie Stephenson Facility:[facility] Start: 08-24-2023 Admission [facility] Dr[facility] Rosie Stephenson Work Phone: [facility] Work Phone: Start: 08-24-[address] Rosie Stephenson Work Phone: [facility] Work Phone: Start: 07-12-2023 End: 07-12-[address] Rosie Stephenson Work Phone: [facility] Work Phone: Start: 06-06-2023 Non-patient / Non-visit Dr. Rosie Stephenson Work Phone: [facility] Start: 06-06-2023 End: 06-06-[address] Rosie Stephenson Work Phone: [facility] Work Phone: Start: 06-06-2023 End: 06-06-[address] [facility] Work [facility]: Start: 05-16-2023 End: 05-16-[address] Rosie Stephenson Work Phone: [facility] Work Phone: Start: 03-15-2023 End: 03-15-[address] Rosie Stephenson Work Phone: [facility] Work Phone: Start: 03-15-2023 End: 03-15-[address] Rosie Stephenson Work Phone: [facility] Start: 03-02-2023 End: 03-02-[address] Rosie Stephenson Work Phone: [facility] Start: 01-27-2022 End: 01-27-[address] Rosie Stephenson Work Phone: [facility] Start: 01-08-2022 End: 01-08-[address] Rosie Stephenson Work Phone: [facility] Start: 11-04-2021 End: 11-04-[address] Rosie Stephenson Work Phone: [facility] Start: 10-06-2021 End: 10-06-[address] Rosie Stephenson Work Phone: [facility] Start: 06-12-2018 End: 06-12-2018 Patient encounter VANESSA NEVAREZ) [facility] Start: 06-09-2018 End: 06-12-2018 Patient encounter VANESSA NEVAREZ) [facility] Plan of Treatment Date Care Activity Detail Author Start: 08-24-2023 Esophagogastroduodenoscopy EGD (Not Applicable) [facility] Anion gap in Serum or Plasma [facility] BUN/Creatinine ratio [facility] Calcium [Mass/volume ] in Serum or Plasma [facility] Carbon dioxide, tota l [Moles/volume] in Central venous blood [facility] Creatinine [Mass/vol ume] in Serum or Plasma [facility] Glucose [Mass/volume ] in Serum or Plasma [facility] Measurement of renal function [facility] Patient referral [facility] Work Phone: Potassium measurement [facility] Serum chloride measurement [facility] Sodium measurement [facility] Urea nitrogen [Mass/ volume] in Serum or Plasma [facility] Immunizations Immunization Date Immunization Notes Care Provider Fa cility 07-10-2025 Seasonal trivalent influenza vaccine, adjuvanted, preservative free Dr. Rosie Stephenson DO Work Phone: [facility] 07-10-2024 Seasonal trivalent influenza vaccine, adjuvanted, preservative free Dr. Rosie Stephenson DO Work Phone: [facility] 07-12-2023 influenza, injectabl e, quadrivalent, preservative free Dr. Rosie Stephenson Work Phone: [facility] 07-20-2022 influenza, injectabl e, quadrivalent, preservative free Dr. Rosie Stephenson Work Phone: [facility] 07-20-2022 influenza, seasonal, injectable Dr. Rosie Stephenson Work Phone: [facility] 09-07-2021 Covid (Moderna) Dr. Rosie Stephenson Work Phone: [facility] 11-21-2020 Covid (Moderna) Dr. Rosie Stephenson Work Phone: [facility] 10-24-2020 Covid (Moderna) Dr. Rosie Stephenson Work Phone: [facility] 07-02-2020 influenza, injectabl e, quadrivalent, preservative free Dr. Rosie Stephenson Work Phone: [facility] 07-02-2020 influenza, seasonal, injectable Dr. Rosie Stephenson Work Phone: [facility] 07-02-2020 Fluad Quad (65yr up)(PF) 60 mcg (15 mcg x 4)/0.5mL IM syringe (flu vac Dr. Rosie Stephenson Work Phone: [facility] Work Phone: 07-04-2019 Fluad 2018- 65yr up(PF)45 mcg(15 mcgx3)/0.5 mL intramuscular syringe (flu vac Dr. Rosie Stephenson Work Phone: [facility] Work Phone: Payers Date Payer Category Payer Private Health Insurance 2024 Self-pay [id number] 2024 Medicare [id number] Private Health Insurance [id number] Unknown [id number] Unknown [id number] 2.16.8 [id number] Unknown [id number] 2.16.8 [id number] Unknown [id number] 2.16.8 [id number] Unknown [id number] 2.16.8 [id number] Unknown [id number] 2.16.8 [id number] Unknown [id number] 2.16.8 [id number] Unknown [id number] 2.16.8 [id number] Unknown [id number] 2.16.8 [id number] Unknown [id number] 2.16.8 [id number] Unknown [id number] 2.16.8 [id number] Unknown [id number] 2.16.8 [id number] Unknown [id number] 2.16.8 [id number] Social History Date Type Detail Facility Start: 01-27-2022 End: 08-24-2023 Tobacco smoking status NHIS Unknown if ever smoked [facility] Start: 1945 Sex Assigned At Male [facility] Start: 02-01-2025 Tobacco smoking stat us NHIS Ex-smoker (finding) [facility] Sex Male [facility] Medical Equipment Procedure Code Equipment Code Equipment Origin al Text Equipment Identifier Dates EGD, with monitored anesthesia care Ligation clip, metallic [id number] FDA Start: 08-24-2023 Mental Status Date Assessment Result Facility 08-24-2023 Cognitive function Level Of Cons ciousness Awake;Alert;Appropriate;Follow s Commands [facility] Work Phone: Procedure note 06-17-2025 Note Date & Type Note Facility 06-17-2025 Procedure note [facility] Evaluation note 04-09-2025 Note Date & Type [...] of permanent cardiac pacemaker chronic May 2:44pm [facility] Work Phone: Evaluation note 03-12-2025 Note Date [...] Pure hypercholesterolemia chronic April 09, 2025 9:48am [facility] [employer] Work Phone: Evaluation note 03-12-2025 Note Date [...] of permanent cardiac pacemaker chronic May 2:44pm [facility] [employer] Work Phone: Evaluation note 02-01-2025 Note Date [...] diabetes mellitus chronic March 12, 2025 8:56am [facility] [employer] Work Phone: Evaluation note Note Date & [...] ic Type 2 diabetes mellitus chr onic [facility] Work Phone: Evaluation note Note Date & Type Note Facility Evaluation note Diagnosis Onset Date 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 Swallowing difficulty acute Essential hypertension chron ic Presence of permanent cardiac pacemaker chronic Type 2 diabetes mellitus [facility] Work Phone: Evaluation note Note Date & Type Note Facility Evaluation note Diagnosis Onset Date 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 Swallowing difficulty acute Essential hypertension chron ic Presence of permanent cardiac pacemaker chronic Type 2 diabetes mellitus chr onic Atrial septal defect chronic Essential hypertension chron ic Presence of permanent cardiac pacemaker chronic Pure hypercholesterolemia [facility] Work Phone: Evaluation note Note Date & Type Note Facility Evaluation note Diagnosis Onset Date Atrial septal defect chronic Essential hypertension chron ic Presence of permanent cardiac pacemaker chronic Pure hypercholesterolemia [facility] Distal esophageal obstructio n due to foreign body acute [facility] Work Phone: Reason for referral (narrative) Note Date & Type Note Facility Reason for referral (narrative) No reason for referral information available [facility] Work Phone: Summary Purpose Family History Relationship Condition Age at Onset Recorded Date/T drake mother Cerebrovascular accident (CVA) Unknown father Malignant neoplasm Unknown brother Coronary artery disease Unknown sister Malignant neoplasm of breast Unknown Advance Directives Advance Directive Response Recorded Date/ Time Advance Directives No September 28, 2021 12:33pm Living Will No September 28 12:33pm Power of Instrument Engineer No September 28 12:33pm Advance Directive Response Recorded Date/ Time Advance Directives No May 9:24am Living Will No June 09, 2022 9:24am Power of Instrument Engineer No May 9:24am Advance Directive Response Recorded Date/ Time Advance Directives No May 8:24am Living Will No August 24 10:56am Power of Instrument Engineer No August 24, 2023 10:56am Advance Directive Response Recorded Date/ Time Living Will No August 24 11:56am Do you have a Healthcare Power of Instrument Engineer? No August 24, 2023 11:56am Advance Directives [...] June 10, 2025 1:10am Pacer update w/ [employer] Septem 2024 2:44pm Reason for Visit Admit [...] June 10, 2025 1:10am Pacer update w/ [employer] Septem 2024 2:44pm Pacer Check Remote June 19, 2025 9:00am Chief Complaint Admit Date 1 Y FU April 09, 2025 9:48 am Pacer Check Remote June 10, 2025 1:10am Pacer update w/ [employer] Septem 2024 2:44pm Pacer Check Remote [...] section and content) DATE CREATED AUTHOR 07/09/2018 [facility] DATE CREATED AUTHOR AUTHOR'S KAI ATION 07/13/2025 [facility] Goals (unrecognized section and content) Goals may [...] Provider Active Start: March 12, 2025 Dr. Rosie Stephenson DO [...] BE BASED ON THE PRIMARY CLINICAL RECORDS. [facility] [facility]. provides no warranty or guarantee of the accuracy or completeness of information in this document.
[2025-09-08] MEDS: Lactated Ringers 1,000 ML 75 ML IV (20:14)
--- NOTE | 2025-09-08 20:41 | HP.PCM.HOS_ITS ---
HPI - General General Date of Admission: 09/08/25 Date of Service: 09/08/25 Chief Complaint: Falls, generalized weakness HPI Narrative FLAQUITO MCMULLEN, is a 79 M who presents to the emergency room at [facility] with complaints of frequent falls at home. Squad noted the patient to be confused at times but was alert and oriented x 3. Patient lives at home with his , he denied any fevers or chills, he denied any chest pain or shortness of breath. Workup in the emergency room including lab was remarkable for a creatinine of 1.27, urinalysis showed 10-25 white cells but no bacteria and was negative for nitrite. EKG showed a paced rhythm at 95, chest, CT of the brain showed no evidence of intracranial hemorrhage or acute ischemia, there were changes of chronic microvascular ischemia and volume loss. Patient's vital signs are stable. Patient was admitted to [place] [address] for generalized weakness, I decided to give the patient IV fluids and have PT and OT see the patient. Patient stated during my interview that he had this happen 1 time before and they did not reach a conclusion as to what caused it. 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 Pure hypercholesterolemia Essential hypertension Hypertension Atrioventricular block, first degree Heart block AV second degree Atrial septal defect Palpitations Cardiac murmur Encounter for long-term current use of high risk medication Nonspecific abnormal unspecified cardiovascular function study hyperlipidemia Home Medications ?Medication ?Instructions ?Recorded ?Last Taken ?Type metoprolol succinate 25 mg 25 mg PO DAILY #90 tabs 12/18 Unknown Rx tablet,extended release 24 hr atorvastatin 10 mg tablet 10 mg PO QHS #90 TABLETS 10/20 Unknown Rx amlodipine 5 mg tablet 5 mg PO DAILY #90 tabs 03/12 Unknown Rx metformin 500 mg tablet 500 mg PO QDAY #90 tabs 04/27 03/20 Unknown Rx Allergy/AdvReac Type Severity Reaction Status Date / Time hydralazine (Hydralazine) Allergy Unknown Verified 09/08/25 16:26 hydrochlorothiazide (From Allergy Unknown Verified 09/08/25 16:26 Diovan HCT) valsartan (From Diovan HCT) Allergy Unknown Verified 09/08/25 16:26 Family History Mother CVA (cerebral vascular accident) Father Cancer Brother CAD (coronary artery disease) Sister Breast cancer Surgical History History of cholecystectomy Social History Smoking Status: Former smoker how long ago did patient quit smokin years ago alcohol intake: never substance use type: does not use caffeine: Yes Type: coffee Number of servings: 2 what type of physical activity do you participate in: walking and bicycling frequency: daily ROS Constitutional Constitutional: Reports fatigue and weakness; Denies anorexia, change in weight, chills, fever(s) or night sweats Eyes Eyes: Denies blurry vision, change in vision, discharge from eye(s), double vision or eye pain Cardiovascular Cardiovascular: Denies chest pain, claudication, dyspnea on exertion, edema or palpitations Respiratory/Chest Respiratory/Chest: Denies cough, hemoptysis, shortness of breath at rest or shortness of breath with exertion Gastrointestinal Gastrointestinal: Denies abdominal pain, constipation, diarrhea, hematemesis, hematochezia, melena, nausea or vomiting Genitourinary Genitourinary: Denies dysuria, hematuria, urinary frequency, urinary hesitancy, urinary incontinence or urinary urgency Musculoskeletal Musculoskeletal: Denies back pain, joint pain, joint stiffness, joint swelling, myalgias or neck pain Neurologic Neurologic: Reports other Details: Generalized weakness ; Denies abnormal gait, abnormal speech, confusion, disequilibrium, dizziness, focal weakness, headache(s), loss of vision, numbness, other visual disturbances, paresthesias, syncope or tingling Psychiatric Psychiatric: Denies anxiety, cognitive impairment, depression, irritability, mood swings or suicidal ideation Endocrine Endocrinology: Denies change in body appearance, cold intolerance, excessive sweating, heat intolerance, polydipsia or polyuria Hematologic/Lymphatic Hematologic/Lymphatic: Denies none, anemia, easy bleeding, easy bruising or lymphadenopathy Allergic/Immunologic Allergic/Immunologic: Denies rhinitis, urticaria, eczemia or asthma Vital Signs Vital Signs Vital Signs: 09/08/25 16:20 09/08/25 16:26 09/08/25 16:45 Temperature 98.7 F 98.7 F Temperature Source Oral Oral Pulse Rate 96 96 Respiratory Rate 18 25 H Respiratory Effort Normal Respiratory Depth Normal Respiratory Pattern Normal Blood Pressure 171/85 H 171/85 H Blood Pressure Mean 113 113 Blood Pressure Source Blood Pressure Position Blood Pressure Location Pulse Ox 97 99 Oxygen Delivery Method Room Air Room Air Room Air 09/08/25 17:26 09/08/25 17:42 09/08/25 18:00 Temperature 98.7 F 99.4 F H 99.4 F H Temperature Source Oral Oral Pulse Rate 95 95 100 Respiratory Rate 20 H 25 H 15 Respiratory Effort Respiratory Depth Respiratory Pattern Blood Pressure 146/84 H 160/80 H 168/82 H Blood Pressure Mean 104 106 110 Blood Pressure Source Blood Pressure Position Blood Pressure Location Pulse Ox 96 97 97 Oxygen Delivery Method Room Air Room Air 09/08/25 19:43 09/08/25 20:37 Temperature 99 F 99.1 F Temperature Source Oral Oral Pulse Rate 103 H 102 H Respiratory Rate 16 16 Respiratory Effort Respiratory Depth Respiratory Pattern Blood Pressure 177/96 H 169/85 H Blood Pressure Mean 123 113 Blood Pressure Source Monitor Monitor Blood Pressure Position Semi-Fowlers Semi-Fowlers Blood Pressure Location Right Arm Right Arm Pulse Ox 96 97 Oxygen Delivery Method Room Air Room Air Weight Weight: 77.1 kg Body Mass Index (BMI) 23.0 Physical Exam Const alert, oriented x3, no apparent distress, average body habitus and healthy appearing Constitutional Narrative: Patient appears stated age General Appearance: cooperative, well kempt and well developed Orientation / Consciousness: awake, oriented to person, oriented to place and oriented to time HEENT normocephalic, head/scalp atraumatic, hearing grossly normal bilaterally and moist oral mucous membranes Eyes PERRL, EOMs intact bilaterally and conjunctivae normal Neck supple, no JVD, thyroid normal and no carotid bruits General: trachea midline Resp normal respiratory effort, no retractions, no use of accessory muscles and clear to auscultation bilaterally Auscultation: Negative for rales, rhonchi or wheezes Cardio regular rate, regular rhythm, S1 normal heart sound, S2 normal heart sound, no murmurs, no rub and no gallops GI normal to inspection, nondistended, normoactive bowel sounds, soft to palpation, non-tender and non-distended Extremity no clubbing, cyanosis or edema Skin no rashes or lesions noted General Skin Exam: no breakdown Neuro oriented x3, CN's II-XII intact bilaterally, moves all extremities, no focal motor deficits and no sensory deficits noted Sensorium / Orientation: awake and alert Speech: speech normal Psych affect normal Results Lab / Micro Data 09/08/25 16:12 09/08/25 16:12 Labs: Laboratory Results - last 24 hr 09/08/25 16:12: WBC 11.0, RBC 4.60, Hgb 14.7, Hct 44.1, MCV 95.9 H, MCH 32.0, MCHC 33.3, RDW Std Deviation 48.0 H, RDW Coeff of Beena 13.7, Plt Count 297, MPV 10.5, Immature Gran % (Auto) 0.500, Neut % (Auto) 80.7 H, Lymph % (Auto) 6.7 L, [place] % (Auto) 9.7, Eos % (Auto) 1.6, Baso % (Auto) 0.8, Absolute Neuts (auto) 8.9 H, Absolute Lymphs (auto) 0.74 L, Nucleated RBC % 0, Sodium 140, Potassium 3.6, Chloride 100, Carbon Dioxide 25.3, Anion Gap 14, BUN 11, Creatinine 1.27 H, Estim Creat Clear Calc 49.75 L, Est GFR (MDRD) Non-Af 57 L, BUN/Creatinine Ratio 8.8 L, Glucose 154 H, Calcium 9.7, Total Bilirubin 0.91, AST 40 H, ALT 24, Alkaline Phosphatase 94, Total Protein 8.8 H, Albumin 4.6, Globulin 4.1, Albumin/Globulin Ratio 1.1 09/08/25 16:44: Urine Color Yellow, Urine Clarity Clear, Urine pH 7.0, Ur Specific [place] 1.010, Urine Protein 100 H, Urine Glucose (UA) 50 H, Urine Ketones 5 H, Urine Occult Blood 250 H, Urine Nitrite Negative, Urine Bilirubin Negative, Urine Urobilinogen Normal, Ur Leukocyte Esterase Negative, Urine RBC 10-25 SEEN, Urine WBC 0 SEEN, Ur Squamous Epith Cells 0 SEEN, Urine Bacteria 0 SEEN, Urine Mucus 0 SEEN Rhythm Strip Rhythm Strip: Paced Rate: 95 Ectopy: None Imaging Radiology Impression Brain CT 09/08/25 16:35 IMPRESSION: 1. No evidence of intracranial hemorrhage or acute ischemia. 2. Changes of chronic microvascular ischemia and volume loss. 3. Ethmoid and left maxillary sinus mucosal thickening. Reading Location: [id number] Chest X-Ray 09/08/25 17:00 IMPRESSION: Negative for acute cardiopulmonary disease Reading Location: [facility] Assessment & Plan Assessment/Plan (1) Multiple falls: PLAN: Plan 1. Generalized weakness-etiology unclear at this point, patient will be seen by PT and OT, I have decided to give the patient IV fluids overnight at a low rate #2 essential hypertension-patient will remain on his present medications #3 hyperlipidemia-patient is on a statin #4 type 2 diabetes-patient is on metformin, I have chosen not to monitor blood sugars during his hospitalization, patient's blood sugar in the emergency room was 154. Total clinical time spent by myself addressing the patient's medical issues, reviewing all of his data, and collaborating with patient's care team: 55 minutes Charges/Coding Visit Charges Inpatient E&M: 88476 Init Hosp L2
--- NOTE | 2025-09-08 22:13 | PCM.HOSP.N ---
Hospitalist Note Patient with agitation, attempting to get out of bed, will administer low dose seroquel x 1.
[2025-09-08] MEDS: Heparin Injection (Vial) 5,000 UNIT/ML VIAL 5000 UNIT SC (22:46)
[2025-09-09 04:04] VITALS: BP 165/91; PULSE 99; RESP 16; TEMP 37.9; O2SAT 95
--- NOTE | 2025-09-09 04:12 | PCM.HOSP.N ---
Hospitalist Note Patient with onset low grade T, recent unremarkable CXR and UA not marked appearing. Will obtain rapid SARS COVID/influenza/RSV PCR.
[2025-09-09] MEDS: Lactated Ringers 1,000 ML 75 ML IV (06:09)
[2025-09-09 06:39] LABS: Hematocrit 40.6 % (40-54); Hemoglobin 14.3 g/dL (13.0-16.5); Immature Granulocytes Count 0.040 X10^3/uL (0.0-0.0); Mean Corp Hgb Conc 35.2 g/dL (32-36); Mean Corpuscular Volume 93.5 fL (80-94); Mean Platelet Vol. 10.2 fl (6.2-12.0); NRBC Flagged by Analyzer 0 % (0-5); Platelet Count 221 K/mm3 (150-450); RBC Distribution Width CV 13.5 % (11.6-14.6); RBC Distribution Width SD 46.7 fl (35.1-43.9); Red Blood Count 4.34 M/mm3 (4.6-6.2); White Blood Count 7.8 K/mm3 (4.4-11.0)
[2025-09-09 07:02] LABS: Anion Gap 13 (5-15); BUN 12 mg/dL (4-19); BUN/Creat Ratio 10.7 RATIO (10-20); Calcium,Total 9.2 mg/dL (7.6-11.0); Carbon Dioxide 24.4 mmol/L (21.0-32.0); Chloride 100 mmol/L (98-108); Estimated Creatinine Clearance 55.91 ml/min (50-250); Glucose 138 mg/dL (70-99); Potassium 3.4 mmol/L (3.3-5.1)
--- NOTE | 2025-09-09 08:59 | PN.HOSP_ITS ---
Reason for Visit Chief Complaint: Falls, generalized weakness Subjective Subjective Patient is an 79-year-old gentleman admitted with multiple falls at home. Patient was reported to be confused on admission subsequent workup came back positive for SARS-CoV-2 Objective Data Objective Data Vital Signs: Vital Signs Temp Pulse Resp BP Pulse Ox O2 Del Method 100.2 F H 99 16 165/91 H 95 Room Air 09/09/25 04:04 09/09/25 04:04 09/09/25 04:04 09/09/25 04:04 09/09/25 04:04 09/09/25 04:04 Oxygen Delivery Method Room Air Weight: 77.1 kg Body Mass Index (BMI) 23.0 Intake & Output: Intake and Output for Last 24 Hours 09/07/25 09/08/25 09/09/25 23:59 23:59 23:59 Intake Total 0 / 100 943.75 / 943.75 Output Total 600 / 600 Balance 0 / -300 343.75 / 343.75 Lab / Micro Data 09/09/25 06:19 09/09/25 06:19 Labs: Laboratory Results - last 24 hr 09/08/25 16:12: WBC 11.0, RBC 4.60, Hgb 14.7, Hct 44.1, MCV 95.9 H, MCH 32.0, MCHC 33.3, RDW Std Deviation 48.0 H, RDW Coeff of Beena 13.7, Plt Count 297, MPV 10.5, Immature Gran % (Auto) 0.500, Neut % (Auto) 80.7 H, Lymph % (Auto) 6.7 L, [place] % (Auto) 9.7, Eos % (Auto) 1.6, Baso % (Auto) 0.8, Absolute Neuts (auto) 8.9 H, Absolute Lymphs (auto) 0.74 L, Nucleated RBC % 0, Sodium 140, Potassium 3.6, Chloride 100, Carbon Dioxide 25.3, Anion Gap 14, BUN 11, Creatinine 1.27 H, Estim Creat Clear Calc 49.75 L, Est GFR (MDRD) Non-Af 57 L, BUN/Creatinine Ratio 8.8 L, Glucose 154 H, Calcium 9.7, Total Bilirubin 0.91, AST 40 H, ALT 24, Alkaline Phosphatase 94, Total Protein 8.8 H, Albumin 4.6, Globulin 4.1, Albumin/Globulin Ratio 1.1 09/08/25 16:44: Urine Color Yellow, Urine Clarity Clear, Urine pH 7.0, Ur Specific [place] 1.010, Urine Protein 100 H, Urine Glucose (UA) 50 H, Urine Ketones 5 H, Urine Occult Blood 250 H, Urine Nitrite Negative, Urine Bilirubin Negative, Urine Urobilinogen Normal, Ur Leukocyte Esterase Negative, Urine RBC 10-25 SEEN, Urine WBC 0 SEEN, Ur Squamous Epith Cells 0 SEEN, Urine Bacteria 0 SEEN, Urine Mucus 0 SEEN 09/09/25 06:19: WBC 7.8, RBC 4.34 L, Hgb 14.3, Hct 40.6, MCV 93.5, MCH 32.9 H, M CHC 35.2 D, RDW Std Deviation 46.7 H, RDW Coeff of Beena 13.5, Plt Count 221, MPV 10.2, Immature Gran % (Auto) 0.500, Neut % (Auto) 73.8 H, Lymph % (Auto) 12.0 L, [place] % (Auto) 12.0 H, Eos % (Auto) 0.8, Baso % (Auto) 0.9, Absolute Neuts (auto) 5.8, Absolute Lymphs (auto) 0.94, Nucleated RBC % 0, Sodium 137, Potassium 3.4, Chloride 100, Carbon Dioxide 24.4, Anion Gap 13, BUN 12, Creatinine 1.13, Estim Creat Clear Calc 55.91, Est GFR (MDRD) Non-Af 65, BUN/Creatinine Ratio 10.7, G lucose 138 H, Calcium 9.2 Micro: Microbiology 09/09/25 05:00 Mucosa - Nasopharyngeal SARS-CoV-2, Influenza & RSV (PCR) - Final SARS-CoV-2 (COVID 19 PCR) Radiography Diagnostic Testing: Radiology Impression Brain CT 09/08/25 16:35 IMPRESSION: 1. No evidence of intracranial hemorrhage or acute ischemia. 2. Changes of chronic microvascular ischemia and volume loss. 3. Ethmoid and left maxillary sinus mucosal thickening. Reading Location: [id number] Chest X-Ray 09/08/25 17:00 IMPRESSION: Negative for acute cardiopulmonary disease Reading Location: [facility] Rhythm Strip Rhythm Strip: Paced Rate: 95 Ectopy: None Physical Exam Narrative GENERAL: cooperative, in no apparent distress HEENT: Atraumatic; normocephalic EYES; Anicteric, Normal Conjunctiva NECK; supple, normal thyroid, RESPIRATORY: Diminished to auscultation CARDIOVASCULAR: Regular S1 S2, GI: soft, normoactive bowel sounds, : No Renal angle tenderness; EXTREMITIES: No edema, no clubbing, MUSCULOSKELETAL: no muscle wasting NEURO: Awake; no lateralizing signs. SKIN: No Rash PSYCH; Flat affect Assessment & Plan Assessment/Plan (1) Multiple falls: PLAN: Plan Patient is an 79-year-old gentleman admitted with multiple falls at home. Patient was reported to be confused on admission subsequent workup came back positive for SARS-CoV-2 1. Acute metabolic encephalopathy ? Secondary to SARS-CoV-2 infection admitted to regular nursing floor for subsequent management 2. SARS-CoV-2 infection ? Symptom management for now 3. Physical deconditioning/debility with multiple falls ? Requested for PT OT eval and social media senior associate to assist with discharge planning 4. Hypertension ? Blood pressure controlled, home medications continued with dose adjustment as needed 5. Diabetes mellitus type 2 ? Patient is on metformin continued placed on Accu-Cheks AC and at bedtime with sliding scale coverage 6. Status post pacemaker placement ?PPM 7. History of atrial septal defects ? Currently asymptomatic 8. Dyslipidemia ?Patient is on statin therapy, continued at home dose 9. DVT prophylaxis ? Subcu heparin Time spent in the patient's overall evaluation,decision-making process, review of diagnostic data, adjustment of management, discussion with other providers, nursing nursing and ancillary staff involved in patient's care documentation, 38 Minutes Charges/Coding Visit Charges Inpatient E&M: 44469 Subs Hosp L2
[2025-09-09 09:01] VITALS: BP 153/73; PULSE 106; RESP 18; TEMP 36.9; O2SAT 97
[2025-09-09 09:03] VITALS: PULSE 106
[2025-09-09] MEDS: Metoprolol(XL)Succ 25 MG Tablet PO (09:03)
[2025-09-09] MEDS: Heparin Injection (Vial) 5,000 UNIT/ML VIAL 5000 UNIT SC ×2 (09:04→22:12)
--- NOTE | 2025-09-09 11:54 | CASEMGMT ---
MUNA MCPHERSON Assessment Face to Face with patient for initial transition planning/care coordination assessment. Pt is currently disoriented. Pt's daughter at the bedside and willing to help. Daughter (Haydee) states that the pt's is also disoriented and that Derrick usually helps care for her at home. Haydee states that her sister, Hanna, is currently caring for the pt's . Care providers, pharmacy, and demographics verified. Admitting dx: Generalized debility, recent falls PCP: Kumar Stephenson Specialists: [facility] Preferred Pharmacy: [facility] Insurance: MCR A/B, [employer] Commercial Prescription Benefit: Yes LNOK: February (W), (Dtr). Haydee states that she has tried to get the pt to fill out POA paperwork in the past but he refused at the time. Living Arrangements: Pt lives with his in a single story home with a basement where the laundry is. One step to enter the home ADLs/IADLs: Indep at baseline Transportation: Pt, pt's daughter normally DME: Dtr is unsure if the pt has the equipment to check his BS levels or not. CM to follow. Medical alert resources provided to the dtr at this time. Dtr states that the pt's has a W/C, FWW, and shower chair. Dtr is unsure if the pt has a FWW or not. CM to follow. HHC/SNF: Denies hx of Pt?s goal: TBD Plan: Anticipate SNF at the time of DC d/t recent falls, current mentation status, and debility. PT is pending. At this time, the Dtr states that SNF is warranted. Educated the pt's dtr on the 3-[place] MCR rule. Dtr states understanding and denies further questions or concerns. CM to follow pt's progression int hospital and f/u for safe DC planning. Report given to OSMANI TORO CM. Dayan Luther RN, CM
[2025-09-09 15:27] VITALS: BP 152/83; PULSE 93; RESP 16; TEMP 36.7; O2SAT 95
[2025-09-09] MEDS: Ensure Plus High Protein 120 ML LIQUID PO ×2 (15:34→22:12)
[2025-09-09 19:42] VITALS: BP 131/72; PULSE 92; RESP 18; TEMP 36.7; O2SAT 96
[2025-09-10] MEDS: Lactated Ringers 1,000 ML 75 ML IV (02:27)
[2025-09-10 02:29] VITALS: BP 161/79; PULSE 84; RESP 16; TEMP 36.8; O2SAT 99
[2025-09-10 05:27] VITALS: BP 153/74; PULSE 73; RESP 18; TEMP 36.9; O2SAT 95
[2025-09-10] MEDS: 0.9% Saline Lock 10 ML Syringe IV (05:30)
[2025-09-10 07:14] LABS: Hematocrit 39.7 % (40-54); Hemoglobin 14.0 g/dL (13.0-16.5); Immature Granulocytes Count 0.030 X10^3/uL (0.0-0.0); Mean Corp Hgb Conc 35.3 g/dL (32-36); Mean Corpuscular Volume 92.5 fL (80-94); Mean Platelet Vol. 10.1 fl (6.2-12.0); NRBC Flagged by Analyzer 0 % (0-5); Platelet Count 203 K/mm3 (150-450); RBC Distribution Width CV 13.8 % (11.6-14.6); RBC Distribution Width SD 46.9 fl (35.1-43.9); Red Blood Count 4.29 M/mm3 (4.6-6.2); White Blood Count 6.3 K/mm3 (4.4-11.0)
--- NOTE | 2025-09-10 07:21 | PN.HOSP_ITS ---
Reason for Visit Chief Complaint: Falls, generalized weakness Subjective Subjective Patient seen creatinine trending up up to 1.48. Started on IV hydration Objective Data Objective Data Vital Signs: Vital Signs Temp Pulse Resp BP Pulse Ox O2 Del Method 98.5 F 73 18 153/74 H 95 Room Air 09/10/25 05:27 09/10/25 05:27 09/10/25 05:27 09/10/25 05:27 09/10/25 05:27 09/10/25 05:27 Oxygen Delivery Method Room Air Weight: 77.1 kg Body Mass Index (BMI) 23.0 Intake & Output: Intake and Output for Last 24 Hours 09/08/25 09/09/25 09/10/25 23:59 23:59 23:59 Intake Total 0 / 100 2193.75 / 2493.75 400 / 400 Output Total 600 / 600 Balance 0 / -300 1593.75 / 1893.75 400 / 400 Lab / Micro Data 09/10/25 07:00 09/10/25 07:00 Labs: Laboratory Results - last 24 hr 09/10/25 07:00: WBC 6.3, RBC 4.29 L, Hgb 14.0, Hct 39.7 L, MCV 92.5, MCH 32.6 H, MCHC 35.3, RDW Std Deviation 46.9 H, RDW Coeff of Beena 13.8, Plt Count 203, MPV 10.1, Immature Gran % (Auto) 0.500, Neut % (Auto) 62.5, Lymph % (Auto) 23.6, M [place]or % (Auto) 11.3 H, Eos % (Auto) 1.3, Baso % (Auto) 0.8, Absolute Neuts (auto) 4.0, Absolute Lymphs (auto) 1.49, Nucleated RBC % 0 Micro: Microbiology 09/09/25 05:00 Mucosa - Nasopharyngeal SARS-CoV-2, Influenza & RSV (PCR) - Final SARS-CoV-2 (COVID 19 PCR) Rhythm Strip Rhythm Strip: Paced Rate: 95 Ectopy: None Physical Exam Narrative GENERAL: cooperative, in no apparent distress HEENT: Atraumatic; normocephalic EYES; Anicteric, Normal Conjunctiva NECK; supple, normal thyroid, RESPIRATORY: Diminished to auscultation CARDIOVASCULAR: Regular S1 S2, GI: soft, normoactive bowel sounds, : No Renal angle tenderness; EXTREMITIES: No edema, no clubbing, MUSCULOSKELETAL: no muscle wasting NEURO: Awake; no lateralizing signs. SKIN: No Rash PSYCH; Flat affect Assessment & Plan Assessment/Plan (1) Multiple falls: PLAN: Plan Patient is an 79-year-old gentleman admitted with multiple falls at home. Patient was reported to be confused on admission subsequent workup came back positive for SARS-CoV-2 1. Acute metabolic encephalopathy ? Secondary to SARS-CoV-2 infection admitted to regular nursing floor for subsequent management 2. SARS-CoV-2 infection ? Symptom management for now 3. Acute kidney injury ? Patient started on IV hydration repeat BMP ordered for 4. Hypertension ? Blood pressure controlled, home medications continued with dose adjustment as needed 5. Diabetes mellitus type 2 ? Patient is on metformin continued placed on Accu-Cheks AC and at bedtime with sliding scale coverage 6. Status post pacemaker placement ?PPM 7. History of atrial septal defects ? Currently asymptomatic 8. Dyslipidemia ?Patient is on statin therapy, continued at home dose 9. Physical deconditioning/debility with multiple falls ? Requested for PT OT eval and social staff worker to assist with discharge planning 10. DVT prophylaxis ? Subcu heparin Time spent in the patient's overall evaluation,decision-making process, review of diagnostic data, adjustment of management, discussion with other providers, nursing nursing and ancillary staff involved in patient's care documentation, 38 Minutes
[2025-09-10 07:47] LABS: Anion Gap 11 (5-15); BUN 22 mg/dL (4-19); BUN/Creat Ratio 14.7 RATIO (10-20); Calcium,Total 8.8 mg/dL (7.6-11.0); Carbon Dioxide 23.2 mmol/L (21.0-32.0); Chloride 100 mmol/L (98-108); Estimated Creatinine Clearance 42.69 ml/min (50-250); Glucose 133 mg/dL (70-99); Magnesium 1.9 mg/dL (1.5-2.2); Potassium 3.4 mmol/L (3.3-5.1)
[2025-09-10 08:00] VITALS: BP 144/69; PULSE 74; RESP 17; TEMP 36.6; O2SAT 96
[2025-09-10 08:51] VITALS: PULSE 74
[2025-09-10] MEDS: Metoprolol(XL)Succ 25 MG Tablet PO (08:51)
[2025-09-10] MEDS: 0.9% Normal Saline (1000mL) 1,000 ML 125 ML IV ×2 (08:51→17:25)
[2025-09-10] MEDS: Heparin Injection (Vial) 5,000 UNIT/ML VIAL 5000 UNIT SC ×2 (08:52→21:08)
--- NOTE | 2025-09-10 11:24 | CASEMGMT ---
Addendum entered by Neetu Eubanks 09/10/25 16:00: Transport sheet and 7000 started. Addendum entered by Neetu Eubanks 09/10/25 15:13: TC to pt dtr to make aware that [facility] has accepted pt for care. Addendum entered by Neetu Eubanks 09/10/25 12:50: [facility] does not have bed availability. Requested dc technical assistant to send referral to [facility] followed by [facility] if no acceptance. Addendum entered by Neetu Eubanks 09/10/25 11:56: Received choices from dtr which are 1. [facility]. [facility]. [facility]. Referral made to [facility] at this time. Original Note: Reviewed therapy evals. TC to pt dtr Haydee as pt noted to be with some confusion still. Discussed therapy evals with pt dtr, she states she would like pt to get stronger prior to returning home as he is the cg for his . She is aware that this RN CM can provide her electronically a list of SNF providers including quality and resource use data and consistent with the patient?s preferred geographic region, medical needs, and insurance network via the [facility] Guide. She is agreeable to this and prefers via text. She is aware to select her top 3 choices and referrals will be made. She denies further questions at this time. [facility] list sent at this time.
--- NOTE | 2025-09-10 13:06 | CASEMGMT ---
Addendum entered by Elma Coello 09/10/25 13:47: [facility] has declined d/t no bed availability. Original Note: Discharge Planning Referral sent via [facility] to [facility] [place]. Elma Coello DC Planning Asst.
--- NOTE | 2025-09-10 13:47 | CASEMGMT ---
Addendum entered by Elma Coello 09/10/25 15:08: [facility] has accepted. MUNA CM updated. Original Note: Discharge Planning Referral sent via [facility] to [facility]. Elma Coello DC Planning Asst.
[2025-09-10 15:12] VITALS: BP 143/78; PULSE 86; RESP 14; TEMP 36.3; O2SAT 96
[2025-09-10 21:04] VITALS: BP 152/69; PULSE 85; RESP 18; TEMP 36.4; O2SAT 94
[2025-09-10] MEDS: Ensure Plus High Protein 120 ML LIQUID PO (21:09)
[2025-09-11 01:31] VITALS: BP 172/72; PULSE 83; RESP 16; TEMP 36.4; O2SAT 97
[2025-09-11 05:41] VITALS: BP 165/78; PULSE 90; RESP 18; TEMP 36.7; O2SAT 100
[2025-09-11] MEDS: 0.9% Normal Saline (1000mL) 1,000 ML 125 ML IV (05:47)
[2025-09-11 07:26] LABS: Hematocrit 38.9 % (40-54); Hemoglobin 13.0 g/dL (13.0-16.5); Immature Granulocytes Count 0.010 X10^3/uL (0.0-0.0); Mean Corp Hgb Conc 33.4 g/dL (32-36); Mean Corpuscular Volume 95.1 fL (80-94); Mean Platelet Vol. 10.3 fl (6.2-12.0); NRBC Flagged by Analyzer 0 % (0-5); Platelet Count 204 K/mm3 (150-450); RBC Distribution Width CV 13.7 % (11.6-14.6); RBC Distribution Width SD 47.9 fl (35.1-43.9); Red Blood Count 4.09 M/mm3 (4.6-6.2); White Blood Count 5.5 K/mm3 (4.4-11.0)
--- NOTE | 2025-09-11 07:26 | PCM.PN.HOSP ---
Reason for Visit Chief Complaint: Falls, generalized weakness Subjective Subjective Patient seen had a relatively uneventful night. Plan is for patient to be discharged to a group home facility pending insurance Objective Data Objective Data Vital Signs: Vital Signs Temp Pulse Resp BP Pulse Ox O2 Del Method 98.0 F 90 18 165/78 H 100 Room Air 09/11/25 05:41 09/11/25 05:41 09/11/25 05:41 09/11/25 05:41 09/11/25 05:41 09/11/25 05:41 Oxygen Delivery Method Room Air Weight: 77.1 kg Body Mass Index (BMI) 23.0 Intake & Output: Intake and Output for Last 24 Hours 09/09/25 09/10/25 09/11/25 23:59 23:59 23:59 Intake Total 2193.75 / 2493.75 1889.17 / 1889.17 1000 / 1000 Output Total 600 / 600 75 / 75 Balance 1593.75 / 1893.75 1814.17 / 1814.17 1000 / 1000 Lab / Micro Data 09/11/25 06:55 09/11/25 06:55 Labs: Laboratory Results - last 24 hr 09/10/25 07:00: Sodium 135, Potassium 3.4, Chloride 100, Carbon Dioxide 23.2, Anion Gap 11, BUN 22 H, Creatinine 1.48 H, Estim Creat Clear Calc 42.69 L, Est GFR (MDRD) Non-Af 47 L, BUN/Creatinine Ratio 14.7, Glucose 133 H, Calcium 8.8, Phosphorus 3.0, Magnesium 1.9 Micro: Microbiology 09/09/25 05:00 Mucosa - Nasopharyngeal SARS-CoV-2, Influenza & RSV (PCR) - Final SARS-CoV-2 (COVID 19 PCR) Rhythm Strip Rhythm Strip: Paced Rate: 95 Ectopy: None Physical Exam Narrative GENERAL: cooperative, in no apparent distress HEENT: Atraumatic; normocephalic EYES; Anicteric, Normal Conjunctiva NECK; supple, normal thyroid, RESPIRATORY: Diminished to auscultation CARDIOVASCULAR: Regular S1 S2, GI: soft, normoactive bowel sounds, : No Renal angle tenderness; EXTREMITIES: No edema, no clubbing, MUSCULOSKELETAL: no muscle wasting NEURO: Awake; no lateralizing signs. SKIN: No Rash PSYCH; Flat affect Assessment & Plan Assessment/Plan (1) Multiple falls: PLAN: Plan Patient is an 79-year-old gentleman admitted with multiple falls at home. Patient was reported to be confused on admission subsequent workup came back positive for SARS-CoV-2 1. Acute metabolic encephalopathy ? Secondary to SARS-CoV-2 infection admitted to regular nursing floor for subsequent management ? 09/10/2025; patient back to baseline 2. SARS-CoV-2 infection ? Symptom management for now ? 09/11/2025; patient remains symptom-free 3. Acute kidney injury ? Patient started on IV hydration repeat BMP ordered for ? 09/11/2025; PENG resolved creatinine back to baseline 4. Hypertension ? Blood pressure controlled, home medications continued with dose adjustment as needed 5. Diabetes mellitus type 2 ? Patient is on metformin continued placed on Accu-Cheks AC and at bedtime with sliding scale coverage 6. Status post pacemaker placement ?PPM 7. History of atrial septal defects ? Currently asymptomatic 8. Dyslipidemia ?Patient is on statin therapy, continued at home dose 9. Physical deconditioning/debility with multiple falls ? Requested for PT OT eval and social insurance adviser to assist with discharge planning 10. DVT prophylaxis ? Subcu heparin Time spent in the patient's overall evaluation,decision-making process, review of diagnostic data, adjustment of management, discussion with other providers, nursing nursing and ancillary staff involved in patient's care documentation, 35 Minutes Charges/Coding Visit Charges Inpatient E&M: 51269 Subs Hosp L2
[2025-09-11 07:54] LABS: Anion Gap 11 (5-15); BUN 18 mg/dL (4-19); BUN/Creat Ratio 14.8 RATIO (10-20); Calcium,Total 8.5 mg/dL (7.6-11.0); Carbon Dioxide 23.7 mmol/L (21.0-32.0); Chloride 105 mmol/L (98-108); Estimated Creatinine Clearance 52.65 ml/min (50-250); Glucose 136 mg/dL (70-99); Potassium 3.5 mmol/L (3.3-5.1)
[2025-09-11 09:16] VITALS: BP 140/71; PULSE 84; RESP 17; TEMP 36.6; O2SAT 100
[2025-09-11 09:18] VITALS: PULSE 84
[2025-09-11] MEDS: Metoprolol(XL)Succ 25 MG Tablet PO (09:18)
[2025-09-11] MEDS: Heparin Injection (Vial) 5,000 UNIT/ML VIAL 5000 UNIT SC (09:19)
[2025-09-11] MEDS: Ensure Plus High Protein 120 ML LIQUID PO (09:19)
--- NOTE | 2025-09-11 09:47 | DS.PCM_ITS ---
Providers Date of Admission: 09/08/25 Date of Discharge: 09/11/25 Primary Care Physician: Dr. Kumar Stephenson, DO Reason For Visit: GENERALIZED DEBILITY Diagnosis Discharge Diagnosis (1) Multiple falls: Status: Acute Code(s): R29.6 - Repeated falls Plan Patient is an 79-year-old gentleman admitted with multiple falls at home. Patient was reported to be confused on admission subsequent workup came back positive for SARS-CoV-2 1. Acute metabolic encephalopathy ? Secondary to SARS-CoV-2 infection admitted to regular nursing floor for subsequent management ? 09/10/2025; patient back to baseline 2. SARS-CoV-2 infection ? Symptom management for now ? 09/11/2025; patient remains symptom-free 3. Acute kidney injury ? Patient started on IV hydration repeat BMP ordered for ? 09/11/2025; PENG resolved creatinine back to baseline 4. Hypertension ? Blood pressure controlled, home medications continued with dose adjustment as needed 5. Diabetes mellitus type 2 ? Patient is on metformin continued placed on Accu-Cheks AC and at bedtime with sliding scale coverage 6. Status post pacemaker placement ?PPM 7. History of atrial septal defects ? Currently asymptomatic 8. Dyslipidemia ?Patient is on statin therapy, continued at home dose 9. Physical deconditioning/debility with multiple falls ? Requested for PT OT eval and home health care social worker to assist with discharge planning 10. DVT prophylaxis ? Subcu heparin Time spent in the patient's overall evaluation,decision-making process, review of diagnostic data, adjustment of management, discussion with other providers, nursing nursing and ancillary staff involved in patient's care documentation, 35 Minutes Medications at Discharge Home Medications metoprolol succinate 25 mg tablet,extended release 24 hr 25 mg PO DAILY #90 tabs 09/28/24 atorvastatin 10 mg tablet 10 mg PO QHS #90 TABLETS 12/25/24 amlodipine 5 mg tablet 5 mg PO DAILY #90 tabs 03/12/25 metformin 500 mg tablet 500 mg PO QDAY #90 tabs 05/21/25 acetaminophen 325 mg tablet 650 mg (2 x 325 mg) PO Q6H PRN PRN Pain 1-10 Or Fever >100.7 #0 tabs 09/11/25 food supplemt, lactose-reduced 0.08 gram-1.5 kcal/mL oral liquid (Ensure Plus High Protein) 120 ml PO 4X/DAY #0 mL 09/11/25 Physical Exam Narrative GENERAL: cooperative, in no apparent distress HEENT: Atraumatic; normocephalic EYES; Anicteric, Normal Conjunctiva NECK; supple, normal thyroid, RESPIRATORY: Diminished to auscultation CARDIOVASCULAR: Regular S1 S2, GI: soft, normoactive bowel sounds, : No Renal angle tenderness; EXTREMITIES: No edema, no clubbing, MUSCULOSKELETAL: no muscle wasting NEURO: Awake; no lateralizing signs. SKIN: No Rash PSYCH; Flat affect Weight / BMI Weight Weight: 77.1 kg Body Mass Index (BMI) 23.0 ABG / Lab / Microbiology Data 09/11/25 06:55 09/11/25 06:55 Laboratory: Laboratory Results - last 24 hr 09/11/25 06:55: WBC 5.5, RBC 4.09 L, Hgb 13.0, Hct 38.9 L, MCV 95.1 H, MCH 31.8, MCHC 33.4 D, RDW Std Deviation 47.9 H, RDW Coeff of Beena 13.7, Plt Count 204, MPV 10.3, Immature Gran % (Auto) 0.200, Neut % (Auto) 58.3, Lymph % (Auto) 26.3, Gregory % (Auto) 10.0, Eos % (Auto) 4.5, Baso % (Auto) 0.7, Absolute Neuts (auto) 3.2, Absolute Lymphs (auto) 1.45, Nucleated RBC % 0, Sodium 139, Potassium 3.5, Chloride 105, Carbon Dioxide 23.7, Anion Gap 11, BUN 18, Creatinine 1.20, Estim Creat Clear Calc 52.65, Est GFR (MDRD) Non-Af 61, BUN/Creatinine Ratio 14.8, G lucose 136 H, Calcium 8.5 Microbiology: Microbiology 09/09/25 05:00 Mucosa - Nasopharyngeal SARS-CoV-2, Influenza & RSV (PCR) - Final SARS-CoV-2 (COVID 19 PCR) D/C Instructions DC O2, CPAP, BIPAP Needs Home O2 Discharge instructions: No Meaningful Use Info Meaningful Use Meaningful Use Diagnoses (Choose all that apply): None applicable Discharge Plan Admission Admit Date/Time: 09/08/25 17:47 Attending Provider: Barron Amador Primary Care Provider: Kumar Stephenson Consulting Providers: Lionel Leger Discharge Orders/Prescriptions Prescriptions: New acetaminophen 325 mg Tablet 650 mg PO Q6H PRN PRN (Reason: Pain 1-10 Or Fever >100.7) Qty: 0 0RF Ensure Plus High Protein 0.08 gram-1.5 kcal/mL Liquid 120 ml PO 4X/DAY Qty: 0 0RF Continued amlodipine 5 mg tablet 5 mg PO DAILY Qty: 90 4RF metoprolol succinate 25 mg tablet extended release 24 hr 25 mg PO DAILY Qty: 90 3RF atorvastatin 10 mg tablet 10 mg PO QHS Qty: 90 3RF metformin 500 mg tablet 500 mg PO QDAY Qty: 90 1RF Referrals / Follow Up: Kumar Stephenson DO [Primary Care Provider, Internal Medicine] Disposition Disposition (needs filled in before D/C Order can be placed): [facility] Charges/Coding Visit Charges Inpatient E&M: 88868 Disch Hosp >30min
--- NOTE | 2025-09-11 09:50 | TREXTCAR_ITS ---
Diet Diet Order/Speech Therapy: INPATIENT Hospital Diet / Speech Therapy Order(s) 09/08/25 18:38 Diet: Regular - General Food consistency:: Regular Liquid Consistency:: Regular/Thin DC O2, CPAP, BIPAP needs Home O2 Discharge instructions: No Wound(s) R Elbow: Wound Type: Abrasion rt buttock: Wound Type: Pressure Injury Lt scapula: Wound Type: Abrasion Problem/Diagnosis (1) Multiple falls: Status: Acute Code(s): R29.6 - Repeated falls Plan Patient is an 79-year-old gentleman admitted with multiple falls at home. Patient was reported to be confused on admission subsequent workup came back positive for SARS-CoV-2 1. Acute metabolic encephalopathy ? Secondary to SARS-CoV-2 infection admitted to regular nursing floor for subsequent management ? 09/10/2025; patient back to baseline 2. SARS-CoV-2 infection ? Symptom management for now ? 09/11/2025; patient remains symptom-free 3. Acute kidney injury ? Patient started on IV hydration repeat BMP ordered for ? 09/11/2025; PENG resolved creatinine back to baseline 4. Hypertension ? Blood pressure controlled, home medications continued with dose adjustment as needed 5. Diabetes mellitus type 2 ? Patient is on metformin continued placed on Accu-Cheks AC and at bedtime with sliding scale coverage 6. Status post pacemaker placement ?PPM 7. History of atrial septal defects ? Currently asymptomatic 8. Dyslipidemia ?Patient is on statin therapy, continued at home dose 9. Physical deconditioning/debility with multiple falls ? Requested for PT OT eval and family welfare social work professor to assist with discharge planning 10. DVT prophylaxis ? Subcu heparin Time spent in the patient's overall evaluation,decision-making process, review of diagnostic data, adjustment of management, discussion with other providers, nursing nursing and ancillary staff involved in patient's care documentation, 35 Minutes Allergies/Procedures Done in Hospital Allergies hydralazine (Hydralazine) Allergy (Verified 09/08/25 16:26) Unknown hydrochlorothiazide (From Diovan HCT) Allergy (Verified 09/08/25 16:26) Unknown valsartan (From Diovan HCT) Allergy (Verified 09/08/25 16:26) Unknown Type of Care/Length of Stay Estimated LOS: Convalescent Care Less Than 30 days Type of Care Needed: Skilled Rehab Potential: Good Prognosis: Good Additional Orders/Day of Discharge Day of Discharge: 09/11/25 Discharge Plan Admission Admit Date/Time: 09/08/25 17:47 Attending Provider: Barron Amador Primary Care Provider: Kumar Stephenson Consulting Providers: Lionel Leger Discharge Orders/Prescriptions Prescriptions: New acetaminophen 325 mg Tablet 650 mg PO Q6H PRN PRN (Reason: Pain 1-10 Or Fever >100.7) Qty: 0 0RF Ensure Plus High Protein 0.08 gram-1.5 kcal/mL Liquid 120 ml PO 4X/DAY Qty: 0 0RF Continued amlodipine 5 mg tablet 5 mg PO DAILY Qty: 90 4RF metoprolol succinate 25 mg tablet extended release 24 hr 25 mg PO DAILY Qty: 90 3RF atorvastatin 10 mg tablet 10 mg PO QHS Qty: 90 3RF metformin 500 mg tablet 500 mg PO QDAY Qty: 90 1RF Referrals / Follow Up: Kumar Stephenson, DO [Primary Care Provider, Internal Medicine] Disposition Disposition (needs filled in before D/C Order can be placed): [facility]
--- NOTE | 2025-09-11 10:06 | CASEMGMT ---
Completed 7000, trf to ext care, transport form and signed med list given to dc investment sales assistant to complete final dc plans.
--- NOTE | 2025-09-11 10:13 | PHA.DC.MR.R ---
Pharmacy [place] Med Reconciliation Pharmacy Service has performed discharge medication reconciliation for this patient. The patient's discharge medication list was reviewed for discrepancies and discrepancies were resolved. Medications at Discharge Home Medications metoprolol succinate 25 mg tablet,extended release 24 hr 25 mg PO DAILY #90 tabs 09/28/24 atorvastatin 10 mg tablet 10 mg PO QHS #90 TABLETS 12/25/24 amlodipine 5 mg tablet 5 mg PO DAILY #90 tabs 03/12/25 metformin 500 mg tablet 500 mg PO QDAY #90 tabs 05/21/25 acetaminophen 325 mg tablet 650 mg (2 x 325 mg) PO Q6H PRN PRN Pain 1-10 Or Fever >100.7 #0 tabs 09/11/25 food supplemt, lactose-reduced 0.08 gram-1.5 kcal/mL oral liquid (Ensure Plus High Protein) 120 ml PO 4X/DAY #0 mL 09/11/25
--- NOTE | 2025-09-11 10:49 | CASEMGMT ---
Discharge Planning Discharge orders, signed med list, and transport time sent via [facility]Port to [facility]. Physicians will transport pt by cot at 11:40a. Nursing, RN CM, and pt updated. left for pts daughter (Haydee). Elma Coello DC Planning Asst.
--- NOTE | 2025-09-11 11:13 | NURSING ---
attempted to call report, call was answered and transferred to someone who can help you. no answer at that extension. this was 2nd attempt to call report, 1st time call went to a [employer] cell phone that reported for some reason all these calls keep coming to my cell phone
--- NOTE | 2025-09-11 11:21 | NURSING ---
report called to bertha at [facility]
== END 2025-09-11 12:00 | disposition skilled nursing facility (03) | DRG 177 ==
LOC: ED 17:55 → MS3 17:59
PROVIDERS: Admitting Provider Internal Medicine; Emergency Provider Emergency Medicine; PCP Family Medicine; Visit Provider Internal Medicine
DX: U07.1 COVID-19 (principal); G93.41 Metabolic encephalopathy; Q21.10 Atrial septal defect, unspecified; N17.9 Acute kidney failure, unspecified; E11.9 Type 2 diabetes mellitus without complications; I10 Essential (primary) hypertension; E78.5 Hyperlipidemia, unspecified; S40.212A Abrasion of left shoulder, initial encounter; W19.XXXA Unspecified fall, initial encounter; S50.311A Abrasion of right elbow, initial encounter; L89.319 Pressure ulcer of right buttock, unspecified stage; Y92.009 Unspecified place in unspecified non-institutional (private) residence as the place of occurrence of the external cause; R53.81 Other malaise; R29.6 Repeated falls; Z95.0 Presence of cardiac pacemaker; Z87.891 Personal history of nicotine dependence; Z90.49 Acquired absence of other specified parts of digestive tract; Z79.84 Long term (current) use of oral hypoglycemic drugs; Z79.899 Other long term (current) drug therapy
CPT/HCPCS: 36415; 70450; 71046; 80048; 80053; 81001; 83735; 84100; 85025; 87631; 93005; 97162; 97167; 97530; 97535; 99285; A4216